=== PATIENT | female | born 1975 | race Two or more races ===

== ENCOUNTER 2020-10-04 15:58 | Inpatient (IN) | payer OTHER ==
[~2020-10-04] VITALS: Ht 160 cm; Wt 88.0 kg
--- NOTE | 2020-10-04 16:10 | NUR ---
pt bibra from c/o abdominal pain from a wound debridement 8 days ago. pt is slovenian speaking, states unable to tolerate po antibiotics,. pt is tachycardic manager cosmetic but afebrile. awating md xavier.
[2020-10-04] MEDS ORDERED: LACT1CAP61 PO (16:25)
[2020-10-04] MEDS ORDERED: AMIN30LI2 PO (16:25)
[2020-10-04] MEDS ORDERED: ASCO-352 PO (16:25)
[2020-10-04] MEDS ORDERED: NA P133E RC (16:25)
[2020-10-04] MEDS ORDERED: METF-440 PO (16:25)
[2020-10-04] MEDS ORDERED: MAGN400O6 PO (16:25)
[2020-10-04] MEDS ORDERED: HYDR-3980 PO (16:25)
[2020-10-04] MEDS ORDERED: BISA10SU11 RC (16:25)
[2020-10-04] MEDS ORDERED: ZINC1CAP3 PO (16:25)
[2020-10-04] MEDS ORDERED: MULT-24 PO (16:25)
[2020-10-04] MEDS ORDERED: HYDR4TAB57 PO (16:25)
[2020-10-04] MEDS ORDERED: DOCU-141 PO (16:25)
[2020-10-04] MEDS ORDERED: MEDI HONEY TD (16:25)
[2020-10-04] MEDS ORDERED: ALLA266C2 TP (16:25)
[2020-10-04] MEDS ORDERED: INSU100V3 SQ (16:25)
[2020-10-04] MEDS ORDERED: SENN-261 PO (16:25)
[2020-10-04] MEDS ORDERED: MORP15TA PO (16:25)
[2020-10-04] MEDS ORDERED: ONDA4TAB5 PO (16:25)
[2020-10-04] MEDS ORDERED: NEOM1OIN19 TP (16:25)
[2020-10-04] MEDS ORDERED: LIDOCAINE HCL IM (16:30)
--- NOTE | 2020-10-04 16:38 | NUR ---
iv line started. blood drawn. lab called for supervisor opening and picking.
--- NOTE | 2020-10-04 16:40 | NUR ---
dr murphy at bedside for eval.
[2020-10-04] MEDS ORDERED: ONDANSETRON HCL/PF 4 MG/2 ML VIAL ONE (16:45)
[2020-10-04] MEDS ORDERED: MORPHINE SULFATE INJ 4 MG/ML DISP.SYRIN ONE (16:46)
[2020-10-04 16:51] LABS: HEMOGLOBIN 10.2 g/dL (11.5-14.8); MEAN CORPUSCULAR VOLUME 91 fL (82-100); NEUTROPHILS % (AUTO) 75.1 % (43.0-81.0)
[2020-10-04 16:53] LABS: BASOPHILS # (AUTO) 0.1 /CMM (0.0-0.2); BASOPHILS % (AUTO) 0.4 % (0.0-2.0); HEMATOCRIT 32 % (33-45); LYMPHOCYTES # (AUTO) 2.4 /CMM (0.8-4.8); LYMPHOCYTES % (AUTO) 17.3 % (20.0-44.0); MEAN CORPUSCULAR HGB CONC 32 g/dl (31.0-36.0); MONOCYTES % (AUTO) 7.2 % (2.0-12.0); NEUTROPHILS # (AUTO) 10.2 /CMM (1.8-8.9); PLATELET COUNT (AUTO) 415 /CMM (150-450); RED BLOOD CELL COUNT(AUTO) 3.53 MIL/uL (4.0-5.2); WHITE BLOOD COUNT (AUTO) 13.6 K/uL (4.3-11.0)
[2020-10-04] MEDS ORDERED: MORPHINE SULFATE INJ 2 MG/ML DISP.SYRIN IV ONE (17:00)
[2020-10-04] MEDS ORDERED: ONDANSETRON HCL/PF 4 MG/2 ML VIAL IVP ONE (17:00)
[2020-10-04] MEDS ORDERED: IV NS 0.9% 1,000 ML BAG IV ONE (17:00)
[2020-10-04 17:18] LABS: BILIRUBIN,DIRECT 0.2 mg/dL (0.0-0.2); BILIRUBIN,TOTAL 0.4 mg/dL (0.2-1.0); TOTAL PROTEIN, SERUM 5.3 g/dL (6.4-8.2)
[2020-10-04 17:19] LABS: ALBUMIN 1.1 g/dL (3.4-5.0)
--- NOTE | 2020-10-04 17:32 | NUR ---
pt to radiology for abdominal ct scan via [facility].
--- NOTE | 2020-10-04 18:46 | NUR ---
u/s tech at bedside for gallbladder ultrasound.
[2020-10-04] MEDS ORDERED: CEFTRIAXONE 1GM BAG (ER ONLY) 50 ML IV ONE (19:27)
[2020-10-04] MEDS ORDERED: CEFTRIAXONE 1GM BAG (ER ONLY) 1 GM/50 ML PIGGYBACK IV ONE (19:30)
--- NOTE | 2020-10-04 21:42 | NUR ---
PT TO NUCLEAR MED VIA BLAIR
--- NOTE | 2020-10-04 22:15 | NUR ---
REPOT GIVEN TO JULIO TRAORE FOR MERCED
[2020-10-04] MEDS ORDERED: ZOLPIDEM TARTRATE 5 MG TABLET PO PRN (22:30)
[2020-10-04] MEDS ORDERED: ACETAMINOPHEN 325 MG TABLET PO PRN (22:30)
[2020-10-04] MEDS ORDERED: Z GUARD REMEDY 2 OZ OINT TP PRN (22:30)
--- NOTE | 2020-10-04 23:28 | NUR ---
PT TRANSFERRED TO ROOM IN STABLE CONDITION VIA ACLS PROTOCOL
--- NOTE | 2020-10-04 23:30 | NUR ---
ms rn notes Admitted a 45y/o female a/ox4 Able to make needs known ,emirati speaking , on r/a sating 97% ,no sob no distress noted patient is nkda , full code .under the service of lori mathew with admitting dx of r/o cholecystitis ,medsurg status , npo status . admission routine care rendered , assessment from head to toe done , patient c/o of abdominal pain 7/10 due pain meds given as ordered .On iv heplock on left hand with G#20 intact and patent with ivf of ns at 75cc/hr infusing well , all needs attended too call light within reach kept patient clean dry and comfortable , v/s stable afebrile , seen and examined by amilcar mathew at bedside with orders . all orders carried out. will continue to monitor pts , blood sugar at 12mn is 144mg/dl 2 units of regular insulin given as ordered. will check blood sugar again at 6am ,
[2020-10-04] MEDS: MORPHINE SULFATE INJ 2 MG/ML DISP.SYRIN IV PRN (23:34)
[2020-10-05] VITALS: BP 107/69
[2020-10-05] MEDS ORDERED: DEXTROSE 50%-WATER 50 ML DISP.SYRIN IV PRN
[2020-10-05] MEDS: IV NS 0.9% 1,000 ML IV PRN ×2 (00:18→17:41)
[2020-10-05] MEDS ORDERED: PIPERACILLIN /TAZOBACTAM 3.375 G VIAL IV ONE ×2 (00:26→03:47)
[2020-10-05] MEDS: ZOSYN IVPB 3.375 G in IV D5W 50ml IV SCH ×2 (00:28→06:03)
[2020-10-05] MEDS: INSULIN REGULAR, HUMAN 100 UNIT/ML 3 ML VIAL SQ PRN ×5 (00:44→23:26)
[2020-10-05] MEDS: BLOOD SUGAR DIAGNOSTIC 1 EACH STRIP IN SCH ×6 (00:45→23:25)
[2020-10-05 04:00] VITALS: BP 98/51
[2020-10-05] MEDS: ONDANSETRON HCL/PF 4 MG/2 ML VIAL IVP PRN ×2 (04:29→12:23)
[2020-10-05] MEDS: MORPHINE SULFATE INJ 2 MG/ML DISP.SYRIN IV PRN ×2 (04:30→12:23)
[2020-10-05 06:33] LABS: BASOPHILS % (AUTO) 0.3 % (0.0-2.0); HEMATOCRIT 28 % (33-45); HEMOGLOBIN 8.7 g/dL (11.5-14.8); LYMPHOCYTES # (AUTO) 1.9 /CMM (0.8-4.8); LYMPHOCYTES % (AUTO) 21.1 % (20.0-44.0); MEAN CORPUSCULAR HGB CONC 32 g/dl (31.0-36.0); MEAN CORPUSCULAR VOLUME 92 fL (82-100); MONOCYTES # (AUTO) 0.8 /CMM (0.1-1.30); MONOCYTES % (AUTO) 9.4 % (2.0-12.0); NEUTROPHILS # (AUTO) 6.1 /CMM (1.8-8.9); NEUTROPHILS % (AUTO) 68.2 % (43.0-81.0); PLATELET COUNT (AUTO) 346 /CMM (150-450); RED BLOOD CELL COUNT(AUTO) 2.99 MIL/uL (4.0-5.2); WHITE BLOOD COUNT (AUTO) 8.9 K/uL (4.3-11.0)
[2020-10-05 06:34] LABS: BILIRUBIN,URINE SMALL (NEGATIVE); COLOR,URINE YELLOW (YELLOW); LEUKOCYTE ESTERASE ,URINE MODERATE (NEGATIVE); NITRITE, URINE POSITIVE (NEGATIVE); PH,URINE 5.5 (5.0-8.0); PROTEIN,URINE 30 mg/dl (NEGATIVE); UGLUCOSE NEGATIVE (NEGATIVE)
[2020-10-05 06:59] LABS: BACTERIA,URINE Moderate /HPF (None Seen); SQUAMOUS EPITHELIAL CELL,UR Few /HPF (None Seen); WBC,URINE TOO NUMEROUS TO COUN /HPF (0-3)
--- NOTE | 2020-10-05 07:17 | NUR ---
RN CLOSING NOTE: PATIENT REMAINS IN ROOM IN NO SIGNS OF RESPIRATORY DISTRESS, PATIENT STILL ON ROOM AIR;TOLERATING WELL SATURATING @ >95% SP02. SAFETY MEASURES IMPLEMENTED, BED IN LOWEST POSITION, LOCKED, SIDE RAILS UP, CALL LIGHT WITHIN REACH. ALL NEEDS AND ORDERS ADDRESSED DURING THE SHIFT. IV ACCESS MAINTAINED INTACT, SECURED AND FLUSHING WELL. ALL DUE MEDS GIVEN ORDERED & SCHEDULED ; PATIENT TOLERATED WELL. PATIENT KEPT CLEAN AND COMFORTABLE WITHIN THE SHIFT. PATIENT ENDORSED TO INCOMING SHIFT RN WITH STABLE VITAL SIGN AND FOR CONTINUITY OF CARE.
--- NOTE | 2020-10-05 07:30 | NUR ---
RN OPENING NOTE PATIENT PRESENT IN BED, A/O X4, STATUS POST TRACH REMOVAL, NPO STATUS NOTE, DRESSING INTACT, ON ROOM AIR, SPO2 98%, NO SOB NOTED, IV LINE INTACT AND PATENT, RUNNING NS AT 75 CC//HR, TOLERATING WELL, JACKSON CATH IN PLACE DRAINING DARK YELLOW URINE BY GRAVITY,ABDOMINAL DRESSING INTACT AND CLEAN, SAFETY MEASURES IN PLACE, CALL LIGHT IN REACH, HOB ELEVATED, WILL CONT TO MONITOR
[2020-10-05 08:25] LABS: CARBON DIOXIDE 21 mmol/L (21-32); CHLORIDE 110 mmol/L (98-107); GLUCOSE 105 mg/dL (74-106); SODIUM SERUM 143 mmol/L (136-145)
[2020-10-05 08:26] LABS: CALCIUM, SERUM 7.2 mg/dL (8.5-10.1); MAGNESIUM 1.9 mg/dL (1.8-2.4); PHOSPHORUS 4.8 mg/dL (2.5-4.9); UREA NITROGEN, BLOOD 32 mg/dL (7-18)
[2020-10-05 08:38] LABS: CHOLESTEROL 116 mg/dL (<200); LDL 72 mg/dL (0-99); TRIGLYCERIDES 230 mg/dL (30-150)
[2020-10-05 08:45] LABS: HDL CHOLESTEROL < 10 mg/dL (40-60)
[2020-10-05] MEDS: METOCLOPRAMIDE HCL 10 MG/2 ML VIAL IV SCH ×3 (11:15→23:09)
[2020-10-05 12:00] VITALS: BP 98/51
[2020-10-05] MEDS ORDERED: PIPERACILLIN /TAZOBACTAM 3.375 G in IV D5W 100 ML IV SCH (12:00)
--- NOTE | 2020-10-05 12:30 | NUR ---
BLOOD SUGAR 86, NO INSULIN COVERAGE
[2020-10-05] MEDS ORDERED: VANCOMYCIN 1.5 GM in IV D5W 500 ML IV ONE (15:00)
[2020-10-05 17:17] LABS: BILIRUBIN,URINE NEGATIVE (NEGATIVE); COLOR,URINE YELLOW (YELLOW); LEUKOCYTE ESTERASE ,URINE LARGE (NEGATIVE); NITRITE, URINE NEGATIVE (NEGATIVE); PH,URINE 6.5 (5.0-8.0); PROTEIN,URINE 30 mg/dl (NEGATIVE); UGLUCOSE NEGATIVE (NEGATIVE); UROBILINOGEN,URINE 0.2 EU/dL (0.2)
[2020-10-05 17:27] LABS: BACTERIA,URINE Many /HPF (None Seen); SQUAMOUS EPITHELIAL CELL,UR Few /HPF (None Seen)
[2020-10-05 17:36] LABS: CREATININE, URINE 71.1 MG/DL (30.0-125.0); URINE TOTAL PROTEIN 147.2 mg/dL (0-11.9)
[2020-10-05 17:50] LABS: EOSINOPHIL,URINE None Seen
--- NOTE | 2020-10-05 18:00 | NUR ---
BLOOD SUGAR 136, PATIENT NPO, NON-ADMINISTER INSULIN
--- NOTE | 2020-10-05 18:48 | NUR ---
RN CLOSING NOTES REMAINS IN ROOM, RESTING COMFORTABLY, HAD MULTIPLE EPISODES OF VOMITING AND NAUSEA, PROVIDED WITH MEDICATIONS, WOUND CARE DONE, CLEANED AND REPOSITIONED, WILL ENDORSE TO PM SHIFT FOR MERCED
[2020-10-05 20:00] VITALS: BP 110/70
[2020-10-05] MEDS ORDERED: MEROPENEM 500 MG in IV NS 0.9% 50 ML IV SCH (21:30)
[2020-10-05] MEDS ORDERED: MEROPENEM 500 MG in IV NS 0.9% 50 ML IV ONE (22:00)
[2020-10-06] MEDS: MORPHINE SULFATE INJ 2 MG/ML DISP.SYRIN IV PRN ×4 (00:01→20:14)
[2020-10-06] MEDS ORDERED: MEROPENEM 500 MG VIAL IV ONE ×2 (00:27→00:36)
[2020-10-06 04:00] VITALS: BP 120/69
--- NOTE | 2020-10-06 04:05 | NUR ---
RN notes Resting comfortably in bed with no distress noted. Breathing even and unlabored. Alert and oriented. Verbally able to communicate needs. Complaint of pain in the abdominal area, morphine administered with relief. Requested for sleeping pill, ambien given with help. No significant change of condition. Kept clean and dry. Will endorse to next shift for continuity of care.
[2020-10-06] MEDS: METOCLOPRAMIDE HCL 10 MG/2 ML VIAL IV SCH ×4 (06:25→22:36)
[2020-10-06] MEDS: IV NS 0.9% 1,000 ML IV PRN (06:29)
[2020-10-06 06:44] LABS: BASOPHILS % (AUTO) 0.4 % (0.0-2.0); EOSINOPHILS % (AUTO) 1.5 % (0.0-6.0); HEMATOCRIT 29 % (33-45); HEMOGLOBIN 9.3 g/dL (11.5-14.8); LYMPHOCYTES % (AUTO) 23.2 % (20.0-44.0); MEAN CORPUSCULAR HGB CONC 32 g/dl (31.0-36.0); MEAN CORPUSCULAR VOLUME 93 fL (82-100); MONOCYTES # (AUTO) 0.6 /CMM (0.1-1.30); MONOCYTES % (AUTO) 7.2 % (2.0-12.0); NEUTROPHILS # (AUTO) 5.9 /CMM (1.8-8.9); NEUTROPHILS % (AUTO) 67.7 % (43.0-81.0); PLATELET COUNT (AUTO) 393 /CMM (150-450); RED BLOOD CELL COUNT(AUTO) 3.11 MIL/uL (4.0-5.2); WHITE BLOOD COUNT (AUTO) 8.8 K/uL (4.3-11.0)
[2020-10-06 08:18] LABS: BILIRUBIN,TOTAL 0.4 mg/dL (0.2-1.0); CALCIUM, SERUM 7.7 mg/dL (8.5-10.1); CREATININE 1.4 mg/dL (0.6-1.3); PHOSPHORUS 2.9 mg/dL (2.5-4.9); POTASSIUM 3.6 mmol/L (3.5-5.1); TOTAL PROTEIN, SERUM 5.3 g/dL (6.4-8.2)
[2020-10-06] MEDS: MEROPENEM 1 G in IV NS 0.9% 100 ML IV SCH ×2 (09:13→20:14)
[2020-10-06] MEDS: ONDANSETRON HCL/PF 4 MG/2 ML VIAL IVP PRN (09:41)
--- NOTE | 2020-10-06 09:41 | NUR ---
rn notes administered Zofran 4 mg/ml iv push for nausea and vomiting.
--- NOTE | 2020-10-06 09:45 | NUR ---
rn notes UA specimen collected from Mancuso catheter port, called lab for sheepskin pickler.
--- NOTE | 2020-10-06 10:20 | NUR ---
rn notes patient burr picker at this time for MRCP wo consent procedure.
--- NOTE | 2020-10-06 10:27 | NUR ---
rn notes administered morphine sulfate 2 mg/ml iv push for mid abdominal pain 12/31 per patient request 12/31 bp 117/74, p-95.
[2020-10-06] MEDS: BLOOD SUGAR DIAGNOSTIC 1 EACH STRIP IN SCH ×3 (11:47→23:52)
[2020-10-06 12:00] VITALS: BP 117/74
[2020-10-06] MEDS: VANCOMYCIN 1 GM in IV D5W 250 ML IV SCH (13:11)
[2020-10-06] MEDS ORDERED: VANCOMYCIN 1 GM in IV D5W 250 ML IV SCH (15:00)
--- NOTE | 2020-10-06 17:00 | NUR ---
RN NOTES BS- 65 MG/DL, NO COVERAGE GIVEN, ADMINISTERED SCHEDULED MEDICATION, NEEDS ATTENDED AND ANTICIPATED, ASSIST TURN AND REPOSTION Q 2 HR.
--- NOTE | 2020-10-06 18:30 | NUR ---
rn notes No evidence of choledocholithiasis or biliary ductal dilatation. 2. Mildly distended gallbladder with moderate amount of layering sludge. 3. Small atrophic right kidney without hydronephrosis. 4. Small cystic lesion abutting the uncinate process of the pancreas and third portion of duodenum. Consider short-term follow-up MRI in 6 months to document stability. patient stable, refused pain at this time, infusing d5ns ar 75 ml/hr on left wrist intact, Mancuso draining via gravity. call light within to reach. will monitoring. endorsed oncoming nurse paula.
--- NOTE | 2020-10-06 19:30 | NUR ---
RN NOTE PATIENT ALERT AND ORIENTED X3, ABLE TO MAKE NEEDS KNOWN. ON ROOM AIR, O2 SAT 99%. NO S/S OF RESPIRATORY DISTRESS. COMPLAINED OF SEVERE ABDOMINAL PAIN, WILL ADMINISTER DUE PRN MEDS. JACKSON CATH PATENT AND INTACT DRAINING YELLOW URINE TO GRAVITY. WITH LEFT WRIST #20 WITH D5NS @ 75ML/HR RUNNING. NO S/S OF INFILTRATION. CALL LIGHT WITHIN REACH. BED LOCKED AND IN LOWEST POSITION. SAFETY MEASURES IMPLEMENTED. ALL NEEDS ANTICIPATED.
[2020-10-06 20:00] VITALS: BP 142/83
[2020-10-06] MEDS: INSULIN REGULAR, HUMAN 100 UNIT/ML 3 ML VIAL SQ PRN (23:52)
--- NOTE | 2020-10-07 | NUR ---
BLOOD SUGAR 69, NO INSULIN COVERAGE GIVEN.
[2020-10-07 04:00] VITALS: BP 126/80
[2020-10-07] MEDS: MORPHINE SULFATE INJ 2 MG/ML DISP.SYRIN IV PRN ×2 (05:27→09:50)
[2020-10-07] MEDS: METOCLOPRAMIDE HCL 10 MG/2 ML VIAL IV SCH ×4 (05:28→23:05)
[2020-10-07] MEDS: VANCOMYCIN 1 GM in IV D5W 250 ML IV SCH ×3 (05:28→18:48)
[2020-10-07] MEDS: BLOOD SUGAR DIAGNOSTIC 1 EACH STRIP IN SCH ×4 (05:48→23:15)
[2020-10-07] MEDS: INSULIN REGULAR, HUMAN 100 UNIT/ML 3 ML VIAL SQ PRN ×4 (05:48→23:16)
--- NOTE | 2020-10-07 06:00 | NUR ---
BLOOD SUGAR 83, NO INSULIN COVERAGE GIVEN
--- NOTE | 2020-10-07 06:40 | NUR ---
RN NOTES PATIENT RESTING IN BED, ALERT AND ORIENTED X3. ON ROOM AIR, O2 SAT 98%. NO SOB NOTED. JACKSON CATH PATENT AND INTACT DRAINING YELLOW URINE TO GRAVITY, OUTPUT 600ML. WITH LEFT WRIST #20 WITH D5NS @ 75ML/HR RUNNING. NO S/S OF INFILTRATION. ALL DUE MEDS GIVEN ORDERED. TOLERATED BED BATH WELL. TURNED AND REPOSITIONED. CALL LIGHT WITHIN REACH. SAFETY MEASURES IMPLEMENTED. WILL ENDORSE TO AM SHIFT.
[2020-10-07 07:01] LABS: BASOPHILS % (AUTO) 0.1 % (0.0-2.0); EOSINOPHILS % (AUTO) 0.8 % (0.0-6.0); HEMATOCRIT 28 % (33-45); HEMOGLOBIN 8.9 g/dL (11.5-14.8); LYMPHOCYTES # (AUTO) 1.8 /CMM (0.8-4.8); LYMPHOCYTES % (AUTO) 26.4 % (20.0-44.0); MEAN CORPUSCULAR HGB CONC 32 g/dl (31.0-36.0); MEAN CORPUSCULAR VOLUME 91 fL (82-100); MONOCYTES # (AUTO) 0.7 /CMM (0.1-1.30); MONOCYTES % (AUTO) 10.4 % (2.0-12.0); NEUTROPHILS # (AUTO) 4.1 /CMM (1.8-8.9); NEUTROPHILS % (AUTO) 62.3 % (43.0-81.0); PLATELET COUNT (AUTO) 403 /CMM (150-450); RED BLOOD CELL COUNT(AUTO) 3.07 MIL/uL (4.0-5.2); WHITE BLOOD COUNT (AUTO) 6.7 K/uL (4.3-11.0)
[2020-10-07 07:39] LABS: CALCIUM, SERUM 7.7 mg/dL (8.5-10.1); CREATININE 0.8 mg/dL (0.6-1.3)
--- NOTE | 2020-10-07 07:40 | NUR ---
RN OPENING NOTES Patient is alert and oriented. Patient is breathing even and unlabored. Left wrist iv site infusing well with fluids. Patient is NPO and harry cath hanging to gravity with clear yellow urine. Patient will be monitored. Bed is in lowest and locked position. Call light with in reach.
[2020-10-07 07:55] LABS: POTASSIUM 2.6 mmol/L (3.5-5.1)
[2020-10-07 08:00] VITALS: BP 110/76
[2020-10-07] MEDS ORDERED: VANCOMYCIN 1 GM in IV D5W 250 ML IV SCH (08:00)
[2020-10-07] MEDS ORDERED: HYDROGEL DRESSING 90 GM TUBE TP PRN (09:00)
--- NOTE | 2020-10-07 09:06 | NUR ---
WOUND CARE CONSULT: PT PRESENTS WITH MULTIPLE WOUNDS AND SKIN ISSUES PRESENT ON ADMISSION INCLUDING MIDBACK PURULENT WOUND, STAGE 3 ULCERS TO LOWER BACK AND RT BUTTOCK AND HUGE ABDOMINAL SURGICAL WOUND. RECOMMENDATIONS MADE FOR SKIN PROTECTION AND WOUND CARE. DISCUSSED WITH NURSING STAFF. WILL SPEAK TO DR COLE WHEN HE IS AVAILABLE. NO ANSWER YET. FIRST STEP LOW AIRLOSS MATTRESS IS ON ORDER. MD IN AGREEMENT WITH PLAN OF CARE. Addendum: 10/07/20 at 1000 by LUIS FREY WNDNU SPOKE WITH JENNIFER GARCIA REGARDING WOUND/SURGICAL CONSULT. PER RADHA, DR COLE WOULD APPRECIATE DR BENJI GLORIA TO SEE PT FOR WOUND/SURGICAL CONSULT. DR BENJI GLORIA NOTIFIED.
[2020-10-07] MEDS: HYDROGEL DRESSING 90 GM TUBE TP SCH (09:38)
[2020-10-07] MEDS: DAKINS QUARTER STRENGTH (0.125%) 480 ML BOTTLE TOP SCH (09:38)
[2020-10-07] MEDS: MEROPENEM 1 G in IV NS 0.9% 100 ML IV SCH ×2 (09:49→20:28)
[2020-10-07] MEDS ORDERED: POTASSIUM CHLORIDE 20 MEQ TAB.PRT.SR PO ONE (13:30)
[2020-10-07] MEDS: POTASSIUM CL. PREMIX PERIPHER. 50 ML IV SCH ×4 (13:56→19:16)
[2020-10-07 16:00] VITALS: BP 104/52
--- NOTE | 2020-10-07 18:44 | NUR ---
Patient discharged [facility] with ambulance. Patient is in stable condition. Report given to Shane KIM over the phone along with medics. Patient did not c/o pain or discomfort. No c/of sob. Mancuso cath intact and hanging to gravity with christian urine. Patient left the facility at apprx 1840pm. All reports , xray, films and discharge instructions given . Addendum: 10/07/20 at 1847 by KOJO BROWNLEE RN wrong chart
--- NOTE | 2020-10-07 19:25 | NUR ---
RN CLOSING NOTES Patient is alert and oriented. Patient is breathing even and unlabored. Wound care provided during shift.Right upper arm midline patent and infusing well. Patient's K+ replaced. Vanco held due to vanco trough level of 28. Endorsed to next shift for urine collection. Bed is in lowest position. Patient ate 50 % lunch and 50 % dinner. NPO orders were changed to Advanced diet by MD LEBLANC. Patient poornima well.
--- NOTE | 2020-10-07 19:30 | NUR ---
RN NOTE PATIENT IN BED AWAKE, ALERT, AND ORIENTED X3. DENIES ANY PAIN AT THIS TIME. ON ROOM AIR, O2 SAT WNL. NO SOB NOTED. KEVEN MIDLINE PATENT AND INTACT RUNNING D5NS @ 75ML/HR. NO S/S OF INFILTRATION. BED LOCKED AND IN LOWEST POSITION WITH SIDE RAILS UP X2. CALL LIGHT WITHIN REACH. ALL NEEDS ANTICIPATED.
--- NOTE | 2020-10-07 20:16 | NUR ---
SPOKE WITH RADHA BAUER PLASTICS PLATER WITH NEW ORDERS FOR HIDA SCAN W/CCK EJECTION FRACTION IN AM AND CBC/ CMP ROUTINE IN AM NOTED AND CARRIED OUT.
[2020-10-07] MEDS: IV D5/ 0.9% NACL 1,000 ML IV PRN (20:37)
[2020-10-08] MEDS: MORPHINE SULFATE INJ 2 MG/ML DISP.SYRIN IV PRN (00:10)
[2020-10-08 04:00] VITALS: BP 120/75
[2020-10-08] MEDS: METOCLOPRAMIDE HCL 10 MG/2 ML VIAL IV SCH ×4 (05:04→23:19)
[2020-10-08] MEDS: BLOOD SUGAR DIAGNOSTIC 1 EACH STRIP IN SCH ×4 (05:13→23:31)
[2020-10-08] MEDS: INSULIN REGULAR, HUMAN 100 UNIT/ML 3 ML VIAL SQ PRN ×4 (05:13→23:32)
[2020-10-08 06:32] LABS: BASOPHILS % (AUTO) 0.3 % (0.0-2.0); EOSINOPHILS % (AUTO) 1.2 % (0.0-6.0); HEMATOCRIT 27 % (33-45); HEMOGLOBIN 8.5 g/dL (11.5-14.8); LYMPHOCYTES # (AUTO) 2.5 /CMM (0.8-4.8); LYMPHOCYTES % (AUTO) 28.5 % (20.0-44.0); MEAN CORPUSCULAR HGB CONC 31 g/dl (31.0-36.0); MEAN CORPUSCULAR VOLUME 93 fL (82-100); MONOCYTES # (AUTO) 0.8 /CMM (0.1-1.30); MONOCYTES % (AUTO) 9.2 % (2.0-12.0); NEUTROPHILS # (AUTO) 5.4 /CMM (1.8-8.9); NEUTROPHILS % (AUTO) 60.8 % (43.0-81.0); PLATELET COUNT (AUTO) 318 /CMM (150-450); RED BLOOD CELL COUNT(AUTO) 2.92 MIL/uL (4.0-5.2); WHITE BLOOD COUNT (AUTO) 8.9 K/uL (4.3-11.0)
--- NOTE | 2020-10-08 06:49 | NUR ---
RN NOTE PATIENT ALERT, AND ORIENTED X3. DENIES ANY PAIN AT THIS TIME. ON ROOM AIR, O2 SAT 99%. NO SOB NOTED. KEVEN MIDLINE PATENT AND INTACT RUNNING D5NS @ 75ML/HR. NO S/S OF INFILTRATION. WOUND CARE DONE. TURNED AND REPOSITIONED. JACKSON CATH DRAINING YELLOW URINE TO GRAVITY WITH OUTPUT OF 255. BED LOCKED AND IN LOWEST POSITION WITH SIDE RAILS UP X2. CALL LIGHT WITHIN REACH. WILL ENDORSE TO AM SHIFT.
[2020-10-08 06:54] LABS: BILIRUBIN,TOTAL 0.4 mg/dL (0.2-1.0); CALCIUM, SERUM 7.8 mg/dL (8.5-10.1); CREATININE 0.8 mg/dL (0.6-1.3); MAGNESIUM 1.7 mg/dL (1.8-2.4); POTASSIUM 3.9 mmol/L (3.5-5.1); TOTAL PROTEIN, SERUM 4.7 g/dL (6.4-8.2)
[2020-10-08 07:09] LABS: ALBUMIN 0.9 g/dL (3.4-5.0)
[2020-10-08 08:00] VITALS: BP 117/77
[2020-10-08] MEDS ORDERED: Magnesium 1GM/D5W 100ML PREMIX 100 ML IV SCH (08:00)
[2020-10-08] MEDS ORDERED: VANCOMYCIN 1 GM in IV D5W 250 ML IV SCH ×2 (08:00→12:00)
[2020-10-08 10:03] LABS: CHLORIDE,URINE RANDOM 80 mmol/L (55-125); POTASSIUM RNDM,URINE 32 mmol/L (25-125); URINE SODIUM, RANDOM 48 mmol/l (40-220)
[2020-10-08] MEDS: ONDANSETRON HCL/PF 4 MG/2 ML VIAL IVP PRN (10:45)
[2020-10-08 10:55] LABS: EOSINOPHILS % (MANUAL) 1 % (0-4); LYMPHOCYTES % (MANUAL) 28 % (16-48); MONOCYTES % (MANUAL) 7 % (0-11.0); NEUTROPHILS % (MANUAL) 64 (42-76)
[2020-10-08] MEDS: DAKINS QUARTER STRENGTH (0.125%) 480 ML BOTTLE TOP SCH (10:58)
[2020-10-08] MEDS: HYDROGEL DRESSING 90 GM TUBE TP SCH (10:59)
--- NOTE | 2020-10-08 11:00 | NUR ---
Patient transferred to radiology nuclear for HIDA scan. In stable condition.
[2020-10-08] MEDS: MEROPENEM 1 G in IV NS 0.9% 100 ML IV SCH ×2 (13:07→21:48)
[2020-10-08 16:00] VITALS: BP 115/58
[2020-10-08] MEDS: VANCOMYCIN 1 GM in IV D5W 250 ML IV SCH (17:56)
--- NOTE | 2020-10-08 19:25 | NUR ---
RN CLOSING NOTES Patient is alert and oriented. Patient is breathing even and unlabored. Right upper arm iv site infusing well with fluids. Patient's harry cath hanging to gravity with clear yellow urine and noted with output of 900cc . Patient will be monitored. Bed is in lowest and locked position. Call light with in reach. Endorsed to next shift for MERCED.
--- NOTE | 2020-10-08 19:35 | NUR ---
RN NOTE RECEIVED PT IN BED. ON ROOM AIR SATING AT 98 %. DENIES ANY PAIN OR SOB. NO DISTRESS NOTED. WOUND DRESSING ON ABDOMEN, CLEAN DRY AND INTACT. KEVEN MIDLINE PATENT AND INTACT, D5NS RUNNING. WILL CONTINUE TO MONITOR. ALL SAFETY MEASURES IMPLEMENTED PER PROTOCOL. CALL LIGHT WITHIN REACH BED LOCKED IN LOWEST POSITION. SIDE RAILS UP X 2.
[2020-10-08 20:00] VITALS: BP 112/70
--- NOTE | 2020-10-08 21:53 | NUR ---
RN NOTE SPOKE TO JULIO DURHAM FROM [facility] REGARDING HULL DRAFTER REQUEST FOR PT TRANSFER. CHARGE NURSE MADE AWARE.
[2020-10-08] MEDS: IV D5/ 0.9% NACL 1,000 ML IV PRN (21:58)
--- NOTE | 2020-10-08 22:45 | NUR ---
MS RN NOTE NURSING COMPUTER DRAFTER INFORMED ME THAT MD AT [facility] DECLINED TO ACCEPT THE PT DUE TO LONG DISTANCE AND LIFE MANAGEMENT TEACHER HAS TO RECHECK THE SITUATION IN THE MORNING. NURSE SUE MADE AWARE OF THAT.
[2020-10-09 04:00] VITALS: BP 142/82
[2020-10-09] MEDS: METOCLOPRAMIDE HCL 10 MG/2 ML VIAL IV SCH ×3 (04:57→17:26)
[2020-10-09] MEDS: MORPHINE SULFATE INJ 2 MG/ML DISP.SYRIN IV PRN (05:06)
[2020-10-09] MEDS: BLOOD SUGAR DIAGNOSTIC 1 EACH STRIP IN SCH ×3 (06:06→17:26)
[2020-10-09] MEDS: INSULIN REGULAR, HUMAN 100 UNIT/ML 3 ML VIAL SQ PRN ×2 (06:07→12:34)
--- NOTE | 2020-10-09 06:28 | NUR ---
RN CLOSING NOTES PT REMAIN IN BED. COMPLAINED OF PAIN IN THE ABDOMEN AREA AROUND 5AM. RELIEVED BY MORPHINE. ALSO NOTED WITH NAUSEA, REGLAN WAS GIVEN ORDERED. PT ABLE TO MAKE NEEDS KNOWS. WOUND TX DONE ORDERED, TOLERATED WELL. CONTINUE ON IVF OF D5NS. NO SIGNS OF INFILTRATION NOTED. ALL NEEDS ATTENDED. REMAIN AFEBRILE. JACKSON CATH IN PLACE, DRAINING WELL. WILL ENDORSE TO NEXT SHIFT NURSE FOR MERCED.
[2020-10-09 06:30] LABS: BASOPHILS % (AUTO) 0.3 % (0.0-2.0); EOSINOPHILS % (AUTO) 1.7 % (0.0-6.0); HEMATOCRIT 30 % (33-45); HEMOGLOBIN 9.3 g/dL (11.5-14.8); LYMPHOCYTES # (AUTO) 3.5 /CMM (0.8-4.8); LYMPHOCYTES % (AUTO) 28.9 % (20.0-44.0); MEAN CORPUSCULAR HGB CONC 31 g/dl (31.0-36.0); MEAN CORPUSCULAR VOLUME 93 fL (82-100); MONOCYTES # (AUTO) 0.9 /CMM (0.1-1.30); MONOCYTES % (AUTO) 7.1 % (2.0-12.0); NEUTROPHILS # (AUTO) 7.5 /CMM (1.8-8.9); PLATELET COUNT (AUTO) 377 /CMM (150-450); RED BLOOD CELL COUNT(AUTO) 3.21 MIL/uL (4.0-5.2); WHITE BLOOD COUNT (AUTO) 12.2 K/uL (4.3-11.0)
[2020-10-09 07:04] LABS: BILIRUBIN,DIRECT 0.1 mg/dL (0.0-0.2); BILIRUBIN,TOTAL 0.4 mg/dL (0.2-1.0)
[2020-10-09 07:09] LABS: CALCIUM, SERUM 7.6 mg/dL (8.5-10.1); CREATININE 0.9 mg/dL (0.6-1.3); MAGNESIUM 1.6 mg/dL (1.8-2.4); PHOSPHORUS 1.6 mg/dL (2.5-4.9); POTASSIUM 3.2 mmol/L (3.5-5.1)
--- NOTE | 2020-10-09 07:30 | NUR ---
RN OPENING NOTE PATIENT PRESENT IN BED, A/O X4, ON ROOM AIR, TOLERATING WELL, SPO2 98%, NO SOB, NO DISTRESS NOTED, DRESSING INTACT, IV LINE INTACT AND PATENT, RUNNING NS AT 75 CC/HR, TOLERATING WELL, JACKSON CATH IN PLACE DRAINING YELLOW URINE BY GRAVITY,ABDOMINAL DRESSING INTACT AND CLEAN, SAFETY MEASURES IN PLACE, CALL LIGHT IN REACH, HOB ELEVATED, WILL CONT TO MONITOR
[2020-10-09 08:00] VITALS: BP 151/73
[2020-10-09] MEDS: MEROPENEM 1 G in IV NS 0.9% 100 ML IV SCH ×2 (08:39→20:04)
[2020-10-09] MEDS: Magnesium 1GM/D5W 100ML PREMIX 100 ML IV SCH ×2 (08:39→10:11)
[2020-10-09] MEDS: HYDROGEL DRESSING 90 GM TUBE TP SCH (08:41)
[2020-10-09] MEDS: DAKINS QUARTER STRENGTH (0.125%) 480 ML BOTTLE TOP SCH (08:41)
[2020-10-09] MEDS ORDERED: POTASSIUM CHLORIDE 20 MEQ TAB.PRT.SR PO ONE (09:00)
[2020-10-09 09:21] LABS: BILIRUBIN,DIRECT 0.1 mg/dL (0.0-0.2); BILIRUBIN,TOTAL 0.3 mg/dL (0.2-1.0); TOTAL PROTEIN, SERUM 4.8 g/dL (6.4-8.2)
[2020-10-09] MEDS ORDERED: K PHOS NEUTRAL 250 MG TABLET PO ONE (10:00)
[2020-10-09] MEDS ORDERED: IV D5/0.45 NACL 1,000 ML IV PRN (10:30)
[2020-10-09 10:37] LABS: ALBUMIN 0.9 g/dL (3.4-5.0)
[2020-10-09] MEDS ORDERED: Sodium Phosphate 15 MMOL in IV NS 0.9% 245 ML IV SCH (11:00)
[2020-10-09] MEDS ORDERED: IV D5W 1,000 ML IV PRN (11:30)
[2020-10-09 12:00] VITALS: BP 151/73
[2020-10-09] MEDS ORDERED: POTASSIUM PHOSPHATE MM 15 MMOL in IV NS 0.9% 250 ML IV ONE (13:00)
[2020-10-09 16:00] VITALS: BP 128/76
[2020-10-09] MEDS: VANCOMYCIN 1 GM in IV D5W 250 ML IV SCH (17:26)
--- NOTE | 2020-10-09 18:00 | NUR ---
COVID ANTIGEN TEST DONE, NEGATIVE RESULT
--- NOTE | 2020-10-09 18:34 | NUR ---
RN CLOSING NOTES REMAINS IN ROOM, TOLERATING TREATMENT WELL, NO ACUTE DISTRESS, CHANGES NOTED, CLEANED AND REPOSITIONED, MEDICATIONS PROVIDED, WILL ENDORSE TO PM SHIFT FOR MERCED
--- NOTE | 2020-10-09 19:10 | NUR ---
MS RN OPENING NOTES: RECEIVED PATIENT IN BED, AWAKE, A/O X3. NO S/S OF DISTRESS NOTED. CALL LIGHT WITHIN REACH. BED ALARM ON. BED IN LOWEST AND LOCKED POSITION. HOB ELEVATED AT 35 DEGREES. ON SPECIAL MATTRESS. WITH JACKSON CATHETER INTACT. ABDOMINAL DRESSING CLEAN, DRY AND INTACT.
[2020-10-09 20:00] VITALS: BP 122/85
--- NOTE | 2020-10-09 20:29 | NUR ---
DR COLE CALLED EARLIER RE: ASKING IF THERE'S CM AVAILABLE AT THIS TIME, INFORMED HIM THAT NONE, HIS CALL WAS TRANSFERRED BY THE SPRING COILER HAND TO THE NURSING LITIGATION SECRETARY.
[2020-10-09 22:33] VITALS: BP 122/85
[2020-10-10] MEDS: METOCLOPRAMIDE HCL 10 MG/2 ML VIAL IV SCH ×2 (00:09→04:30)
[2020-10-10] MEDS: INSULIN REGULAR, HUMAN 100 UNIT/ML 3 ML VIAL SQ PRN (00:19)
[2020-10-10] MEDS: BLOOD SUGAR DIAGNOSTIC 1 EACH STRIP IN SCH ×2 (00:19→06:00)
[2020-10-10] MEDS: MORPHINE SULFATE INJ 2 MG/ML DISP.SYRIN IV PRN ×2 (02:30→09:39)
--- NOTE | 2020-10-10 06:06 | NUR ---
blood sugar [id number], no insulin coverage needed.
[2020-10-10 06:33] LABS: BASOPHILS % (AUTO) 0.2 % (0.0-2.0); EOSINOPHILS % (AUTO) 1.5 % (0.0-6.0); HEMATOCRIT 32 % (33-45); HEMOGLOBIN 9.6 g/dL (11.5-14.8); LYMPHOCYTES # (AUTO) 4.3 /CMM (0.8-4.8); LYMPHOCYTES % (AUTO) 27.3 % (20.0-44.0); MEAN CORPUSCULAR HGB CONC 30 g/dl (31.0-36.0); MEAN CORPUSCULAR VOLUME 93 fL (82-100); MONOCYTES % (AUTO) 6.6 % (2.0-12.0); NEUTROPHILS # (AUTO) 10.1 /CMM (1.8-8.9); NEUTROPHILS % (AUTO) 64.4 % (43.0-81.0); PLATELET COUNT (AUTO) 397 /CMM (150-450); RED BLOOD CELL COUNT(AUTO) 3.42 MIL/uL (4.0-5.2); WHITE BLOOD COUNT (AUTO) 15.6 K/uL (4.3-11.0)
[2020-10-10 06:51] LABS: BILIRUBIN,DIRECT 0.3 mg/dL (0.0-0.2); BILIRUBIN,TOTAL 0.4 mg/dL (0.2-1.0); CALCIUM, SERUM 8.1 mg/dL (8.5-10.1); MAGNESIUM 1.7 mg/dL (1.8-2.4); PHOSPHORUS 2.4 mg/dL (2.5-4.9); TOTAL PROTEIN, SERUM 4.9 g/dL (6.4-8.2)
[2020-10-10 07:11] LABS: ALBUMIN 0.9 g/dL (3.4-5.0)
--- NOTE | 2020-10-10 07:30 | NUR ---
RN OPENING NOTE PT LYING IN BED RA SPO2 97%, NO SIGN OF RESP DISTRESS OR SOB. PT A/Ox3/3, SAMOAN SPEAKING. PT HAS KEVEN MIDLINE INFUSING D5W @ 100ML/HR, FLUSHED, PATENT AND INTACT, NO S/S OF INFECTION/INFILTRATION. PT HASABD, MIDBACK, LOW BACK, AND RT BUTTOCK WOUNDS, ALL DRSGS CLEAN, DRY AND INTACT. PT STATES PAIN 01/31, WILL ADMIN PAIN MEDS ORDERED. ALL PT SAFETY PRECAUTIONS IN PLACE, WILL CONT TO MONITOR Addendum: 10/10/20 at 1022 by MADHU MARTINEZ RN JACKSON CATH PATENT DRAINING ARAMIS URINE TO GRAVITY
--- NOTE | 2020-10-10 08:00 | NUR ---
RN NOTE SPA COORDINATOR RALPH NOTIFIED OF ALBUMIN 0.9
[2020-10-10] MEDS: DAKINS QUARTER STRENGTH (0.125%) 480 ML BOTTLE TOP SCH (08:44)
[2020-10-10] MEDS: Magnesium 1GM/D5W 100ML PREMIX 100 ML IV SCH ×2 (08:44→10:39)
[2020-10-10] MEDS: MEROPENEM 1 G in IV NS 0.9% 100 ML IV SCH (08:45)
[2020-10-10] MEDS: HYDROGEL DRESSING 90 GM TUBE TP SCH (08:45)
[2020-10-10 09:11] LABS: EOSINOPHILS % (MANUAL) 1 % (0-4); LYMPHOCYTES % (MANUAL) 16 % (16-48); MONOCYTES % (MANUAL) 7 % (0-11.0); NEUTROPHILS % (MANUAL) 76 (42-76)
--- NOTE | 2020-10-10 11:23 | NUR ---
RN NOTE PT REPORT GIVEN TO JULIO KRISHNAN AT [facility], PT TO GO TO ROOM 1203-1
--- NOTE | 2020-10-10 11:57 | NUR ---
RN NOTE PT DISCHARGED WITH AMBULANCE IN STABLE CONDITION. REPORT GIVEN TO EMT. ALL SAFETY PRECAUTIONS IN PLACE. KEVEN MIDLINE LEFT IN PLACE PT WILL BE NEEDING IV ABX TREATMENT, RECEIVING RN AWARE
== END 2020-10-10 12:05 | disposition short-term general hospital (02) ==
LOC: ER 16:04 → MEDSG1 22:00
PROVIDERS: ADMIT Nurse Practitioner Acute Care; ATTEND Registered Nurse
PROC: 05HB33Z Insertion of Infusion Device into Right Basilic Vein, Percutaneous Approach (ICD-10-PCS; principal; 2020-10-07)
DX: K80.00 Calculus of gallbladder with acute cholecystitis without obstruction (principal); N17.0 Acute kidney failure with tubular necrosis; M72.6 Necrotizing fasciitis; E43 Unspecified severe protein-calorie malnutrition; K31.84 Gastroparesis; Z93.0 Tracheostomy status; E11.43 Type 2 diabetes mellitus with diabetic autonomic (poly)neuropathy; N18.9 Chronic kidney disease, unspecified; D50.9 Iron deficiency anemia, unspecified; Z68.34 Body mass index [BMI] 34.0-34.9, adult; Z87.442 Personal history of urinary calculi; Z20.822 Contact with and (suspected) exposure to COVID-19; Z86.16 Personal history of COVID-19; Z79.4 Long term (current) use of insulin; Z79.899 Other long term (current) drug therapy; R74.01 Elevation of levels of liver transaminase levels; Z87.39 Personal history of other diseases of the musculoskeletal system and connective tissue; N26.1 Atrophy of kidney (terminal); K82.8 Other specified diseases of gallbladder; K76.0 Fatty (change of) liver, not elsewhere classified; E87.0 Hyperosmolality and hypernatremia; E87.6 Hypokalemia; S31.000A Unspecified open wound of lower back and pelvis without penetration into retroperitoneum, initial encounter; E11.22 Type 2 diabetes mellitus with diabetic chronic kidney disease
CPT/HCPCS: 36410; 36415; 74181-TC; 76705-TC; 78226; 80048-TC; 80053-TC; 80061-TC; 80076-TC; 80202-TC; 81001; 82247-TC; 82248-TC; 82436-TC; 82570-TC; 82962-TC; 83690-TC; 83735-TC; 84100-TC; 84133-TC; 84155-TC; 84300-TC; 84703-TC; 85025-TC; 87081-TC; 87086-TC; A6248; A6253; A6403; A9537; A9563; G0378; J0696; J1815; J2185; J2270; J2405; J2543; J2765; J3370; J3475; J3480; J3490; J7030; J7042; J7050; J7060; J7070; U0003

== ENCOUNTER 2020-10-28 11:04 | Inpatient (IN) | payer OTHER ==
[~2020-10-28] VITALS: Ht 157.5 cm; Wt 97.5 kg
[~2020-10-28 11:04] MED LIST: ALLA266C2 TP; AMIN30LI2 PO; ASCO-352 PO; BISA10SU11 RC; DOCU-141 PO; HYDR-3980 PO; HYDR4TAB57 PO; INSU100V3 SQ; LACT1CAP61 PO; LIDOCAINE HCL IM; MAGN400O6 PO; MEDI HONEY TD; METF-440 PO; MORP15TA PO; MULT-24 PO; NA P133E RC; NEOM1OIN19 TP; ONDA4TAB5 PO; SENN-261 PO; ZINC1CAP3 PO
[2020-11-04 21:30] VITALS: BP 109/67
[2020-11-04 22:00] VITALS: BP 109/67
--- NOTE | 2020-11-04 22:00 | NUR ---
MS/RN ADMITTING NOTE PATIENT IS DIRECT ADMIT FROM [facility]. ARRIVED TO THE UNIT VIA DONITARAB[facility], 2 CAMP GUARD AND ONE RN. PATIENT ACCOMPANIED TO ROOM 322-2. PATIENT IS ALERT AND ORIENTED X 3. ABLE TO MAKE NEEDS KNOWN. PRIMARILY YI SPEAKING BUT UNDERSTANDS URDU. NO COMPLAINTS OF PAIN AT THIS TIME. CONTINUES ON ROOM AIR WITH NO S/SX OF RESPIRATORY DISTRESS NOTED. IV TO LEFT UPPER ARM MIDLINE INTACT, PATENT AND SALINE LOCKED. PATIENT HAS LEFT EXTERNAL JUGULAR HD CATH WHICH DRESSING IS INTACT. PATIENT HAS JACKSON CATHETER DRAINING RED HEMATURIA. DIRECTOR PROJECT MANAGEMENT MD PERALES NOTIFIED. RECTAL TUBE INTACT DRAINING WATERY BROWN STOOL. SKIN CHECK PERFORMED ON ADMISSION BUT ONLY ABLE TO COMPLETE HALF OF SKIN CHECK D/T PATIENT REFUSING. UNABLE TO ASSESS POSTERIOR ASPECT OF PATIENT. PATIENT WITH MULTIPLE BRUISES, SCABS AND EXCORIATION. PICTURES TAKEN AND PLACED IN CHART. WOUND CONSULT INITIATED. PATIENT HAS ABDOMINAL WOUND WITH DRESSING INTACT. PATIENT CURRENTLY NAUSEAS WITH ONE EPISODE OF EMESIS WHICH WAS CLEAR IN COLOR. ADMINISTERED PRN ZOFRAN WITH PENDING EFFECT. WILL ATTEMPT TO CHANGE DRESSING WHEN NAUSEA CEASES. PATIENT HAS NG TUBE TO RIGHT NARE FOR CONTINUOUS TUBE FEED. NGT PATENT WITH POSITIVE AUSCULTATION. PATIENT ORIENTED TO ROOM, CALL PERDOMO AND UNIT. CALL LIGHT WITHIN REACH. ASPIRATION, FALL AND SAFETY PRECAUTIONS MAINTAINED. WILL CONTINUE TO MONITOR.
[2020-11-04] MEDS ORDERED: NA PHOS,M-B/NA PHOS,DI-BA 1 EA ENEMA RC PRN (23:30)
[2020-11-04] MEDS ORDERED: MAGNESIUM HYDROXIDE 30 ML UDC PO PRN (23:30)
[2020-11-04] MEDS ORDERED: BISACODYL SUPP (10 MG) 10 MG/SUPP.RECT SUPP.RECT RC PRN (23:30)
--- NOTE | 2020-11-04 23:30 | NUR ---
MS/RN NOTE PATIENT WAS SENT WITH WOUND VAC DRESSING BUT NO WOUND VAC MACHINE. UNABLE TO APPLY WOUND VAC AT THIS TIME SINCE NO MACHINE AVAILABLE. WET TO DRY DRESSING APPLIED TO ABDOMINAL WOUND. WOUND CONSULT IN PLACE. WILL CONTINUE TO MONITOR.
[2020-11-04] MEDS ORDERED: MICA100V3 (23:56)
[2020-11-05] MEDS ORDERED: ACETAMINOPHEN 650 MG/20.3 ML UDC NG PRN
[2020-11-05] MEDS: ONDANSETRON HCL/PF 4 MG/2 ML VIAL IV PRN ×2 (00:42→12:40)
[2020-11-05] MEDS ORDERED: VITAL AF 1.2 1,000 ML BOTTLE NG PRN (01:48)
[2020-11-05] MEDS: HYDROMORPHONE 1 MG/1 ML DISP.SYRIN IV PRN ×2 (03:56→12:40)
--- NOTE | 2020-11-05 05:30 | NUR ---
MS/RN NOTE CONTACTED ITA MARTINEZ TO CLARIFY IF PATIENT CAN TOLERATE PO OR ONLY NGT. SPOKE WITH RN TAKING CARE OF PATIENT LAST NIGHT. RN STATES SHE HAS BEEN EATING BY MOUTH AND TAKING MEDICATIONS CRUSHED BY MOUTH. NG TUBE IS ONLY FOR FEEDINGS IF NEEDED.
[2020-11-05] MEDS: BLOOD SUGAR DIAGNOSTIC 1 EACH STRIP IN SCH ×4 (06:33→21:59)
--- NOTE | 2020-11-05 06:37 | NUR ---
MS/RN CLOSING NOTE PATIENT CURRENTLY RESTING IN BED. AWAKE, ALERT AND ORIENTED X 3. ABLE TO MAKE NEEDS KNOWN. NO COMPLAINTS OF PAIN AT THIS TIME. IV ACCESS TO LEFT UPPER ARM MIDLINE INTACT, PATENT AND SALINE LOCKED. NGT IN PLACE. PATIENT CURRENTLY ON PUREED DIET WITH THIN LIQUIDS. TAKING MEDICATIONS CRUSHED BY MOUTH. BLOOD GLUCOSE THIS AM IS 113. NO S/SX OF NAUSEA OR VOMITING AT THIS TIME. DRESSING TO ABDOMEN CLEAN, DRY AND INTACT. WOUND CONSULT IN PLACE. DIETARY CONSULT IN PLACE. CALL LIGHT WITHIN REACH. ASPIRATION, FALL AND SAFETY PRECAUTIONS MAINTAINED. WILL CONTINUE TO MONITOR.
[2020-11-05 06:44] LABS: BASOPHILS % (AUTO) 0.4 % (0.0-2.0); EOSINOPHILS % (AUTO) 0.8 % (0.0-6.0); HEMATOCRIT 26 % (33-45); HEMOGLOBIN 8.2 g/dL (11.5-14.8); LYMPHOCYTES # (AUTO) 1.9 /CMM (0.8-4.8); LYMPHOCYTES % (AUTO) 15.3 % (20.0-44.0); MEAN CORPUSCULAR HGB CONC 32 g/dl (31.0-36.0); MEAN CORPUSCULAR VOLUME 93 fL (82-100); MONOCYTES # (AUTO) 0.4 /CMM (0.1-1.30); MONOCYTES % (AUTO) 3.5 % (2.0-12.0); NEUTROPHILS # (AUTO) 10.1 /CMM (1.8-8.9); PLATELET COUNT (AUTO) 219 /CMM (150-450); RED BLOOD CELL COUNT(AUTO) 2.75 MIL/uL (4.0-5.2); WHITE BLOOD COUNT (AUTO) 12.6 K/uL (4.3-11.0)
[2020-11-05 08:00] VITALS: BP 101/65
--- NOTE | 2020-11-05 08:35 | NUR ---
MS RN OPENING NOTE RECEIVED PATIENT IN BED. A/O X3. ON ROOM AIR, TOLERATING WELL. NO SOB NOTED. NO S/S OF RESPIRATORY DISTRESS. NGT TUBE ON THE R NARE, IN PLACE. IV ACCESS ON L UPPER ARM MIDLINE, INTACT. L JUGULAR HD CATH C/D/I. JACKSON CATHETER IN PLACE, DRAINING BLOODY URINE. FLEXI SEAL INTACT. CURRENTLY ON PUREE DIET. PT HAS MULTIPLE WOUNDS. SAFETY MEASURES MAINTAINED. BED IN LOWEST POSITION, BRAKES LOCKED. SIDE RAILS UP X2. CALL LIGHT WITHIN REACH. WILL CONTINUE PLAN OF CARE.
[2020-11-05 08:52] LABS: ALBUMIN 1.8 g/dL (3.4-5.0); BILIRUBIN,TOTAL 0.8 mg/dL (0.2-1.0); CALCIUM, SERUM 8.5 mg/dL (8.5-10.1); CREATININE 2.1 mg/dL (0.6-1.3); MAGNESIUM 2.1 mg/dL (1.8-2.4); POTASSIUM 2.9 mmol/L (3.5-5.1); TOTAL PROTEIN, SERUM 5.2 g/dL (6.4-8.2)
--- NOTE | 2020-11-05 08:57 | NUR ---
RN NOTE CRITICAL VALUE REPORTED BY iBllie ADAMS IS 159, INFORMED DR. RALPH WHEAT AT 0953. Addendum: 11/05/20 at 0956 by MELI HERNANDEZ RN INFORMED DR. RALPH WHEAT AT 0905.
[2020-11-05] MEDS ORDERED: Medication Not On Formulary EA (Lactobacillus Acidophilus (Acidophilus) 1 EACH) PO SCH (09:00)
[2020-11-05] MEDS ORDERED: DOCUSATE SODIUM 100 MG CAPSULE PO SCH (09:00)
[2020-11-05] MEDS ORDERED: Medication Not On Formulary EA (Amino Acids/Protein Hydrolys (Pro-Stat Liquid) 30 ML) PO SCH (09:00)
[2020-11-05] MEDS ORDERED: ZINC SULFATE 220 MG CAPSULE PO SCH (09:00)
[2020-11-05] MEDS ORDERED: METFORMIN 500 MG TABLET PO SCH (09:00)
[2020-11-05] MEDS ORDERED: BACI/NEOM/POLY B OINT PKT 1 UDPKT PACKET TP SCH (09:00)
[2020-11-05] MEDS ORDERED: MORPHINE SULFATE IR 15 MG TABLET PO SCH (09:00)
[2020-11-05] MEDS ORDERED: MULTIVITAMINS,THERAGRAN 1 UDTAB TABLET PO SCH (09:00)
[2020-11-05] MEDS ORDERED: ASCORBIC ACID 500 MG TABLET PO SCH (09:00)
--- NOTE | 2020-11-05 09:22 | NUR ---
WOUND CARE CONSULT: PT SEEN FOR SKIN ASSESSMENT AND NOTED TO HAVE MULTIPLE SKIN ISSUES AND WOUNDS, PRESENT ON ADMISSION INCLUDING SCABS/DISCOLORATIONS TO LOWER EXTREMITIES, HUGE ABDOMINAL SURGICAL WOUND, STAGE 3 ULCERS TO BILATERAL BUTTOCKS, LEFT ARM DRY NECROTIC WOUND AND RT BACK UNSTAGEABLE NECROTIC WOUND. SURGICAL CONSULT MADE TO DR BENJI GLORIA. RECOMMENDATIONS MADE FOR SKIN PROTECTION AND WOUND CARE. DISCUSSED WITH NURSING STAFF. PT TO BE PLACED ON MUSHTAQ ISOFLEX LOW AIRLOSS BED. PT NOTED TO HAVE JACKSON CATHETER WITH DARK RED URINE AND RECTAL TUBE WITH BROWN STOOL. SOME LEAKAGE AROUND RECTAL TUBE NOTED WITH INCONTINENCE ASSOCIATED SKIN DAMAGE TO PERIANAL AREA AND LOWER BUTTOCKS, PRESENT ON ADMISSION. PT ALSO NOTED TO HAVE HEALING TRACH. MD IN AGREEMENT WITH PLAN OF CARE. Addendum: 11/05/20 at 0926 by LUIS FREY WNDNU Amended: Links added.
[2020-11-05] MEDS ORDERED: HYDROGEL DRESSING 90 GM TUBE TP PRN (09:30)
--- NOTE | 2020-11-05 09:50 | NUR ---
RN NOTE RECEIVED ORDERS FROM DR. RALPH WHEAT TO KEEP THE PT. ON NPO AND FLUSH THE JACKSON WITH 40 CC Q4. READ BACK ORDERS AND CARRIED OUT.
--- NOTE | 2020-11-05 09:55 | NUR ---
RN NOTE DR ROSAS ORDERED PT TO BE ON LOW INTERMITTENT SUCTION. ORDER READ BACK AND CARRIED OUT.
[2020-11-05] MEDS ORDERED: Potassium Chloride 20 MEQ in IV D5/0.45 NACL 1,000 ML IV PRN (10:30)
[2020-11-05] MEDS: POTASSIUM CL. PREMIX PERIPHER. 50 ML IV SCH ×3 (10:40→13:54)
[2020-11-05] MEDS: DAKINS QUARTER STRENGTH (0.125%) 480 ML BOTTLE TOP SCH (11:14)
[2020-11-05] MEDS: HYDROGEL DRESSING 90 GM TUBE TP SCH (11:15)
[2020-11-05] MEDS: Z GUARD REMEDY 2 OZ OINT TP SCH (11:16)
[2020-11-05 11:17] LABS: EOSINOPHILS % (MANUAL) 2 % (0-4); LYMPHOCYTES % (MANUAL) 15 % (16-48); MONOCYTES % (MANUAL) 4 % (0-11.0); NEUTROPHILS % (MANUAL) 79 (42-76)
--- NOTE | 2020-11-05 13:40 | NUR ---
RN NOTE OBTAINED SPECIMEN FOR URINALYSIS PROFILE AND TEST. CALLED LAB TO COLLECT THE SPECIMEN IN THE REFRIGERATOR.
[2020-11-05 16:00] VITALS: BP 100/56
[2020-11-05] MEDS ORDERED: NA PHOS,M-B/NA PHOS,DI-BA 1 EA ENEMA RC PRN (16:00)
[2020-11-05] MEDS ORDERED: BISACODYL SUPP (10 MG) 10 MG/SUPP.RECT SUPP.RECT RC PRN (16:00)
[2020-11-05] MEDS ORDERED: MAGNESIUM HYDROXIDE 30 ML UDC PO PRN (16:00)
[2020-11-05] MEDS: DOCUSATE SODIUM 100 MG CAPSULE PO SCH (16:39)
--- NOTE | 2020-11-05 18:23 | NUR ---
MS RN CLOSING NOTE PATIENT RESTING IN BED. A/O X3. ON ROOM AIR, SATURATING WELL AT 96%. NO SOB NOTED. NO S/S OF RESPIRATORY DISTRESS. KEPT HOB 45 DEGREES AT ALL TIMES. NGT TUBE ON THE R NARE, IN PLACE, CONNECTED TO LOW INTERMITTENT SUCTION WITH 300 ML OUTPUT. IV ACCESS ON L UPPER ARM MIDLINE, INTACT AND PATENT, D5 1/2 NS WITH KCL 20 Meq CURRENTLY RUNNING AT 100 ML/HR. L JUGULAR HD CATH C/D/I. JACKSON CATHETER IN PLACE, DRAINING BLOODY URINE. FLEXI SEAL INTACT, 100 OUTPUT. CURRENTLY ON NPO DIET. WOUND TREATMENT ORDERED. FLUSHED JACKSON WITH 40 CC Q4. TURNED POSITION Q2. SAFETY MEASURES MAINTAINED. BED IN LOWEST POSITION, BRAKES LOCKED. SIDE RAILS UP X2. CALL LIGHT WITHIN REACH. WILL ENDORSE CONTINUITY OF CARE TO ONCOMING SHIFT. Addendum: 11/05/20 at 1847 by MELI HERNANDEZ RN JACKSON CATHETER IN PLACE, DRAINING BLOODY URINE, 1120 CC OUTPUT
--- NOTE | 2020-11-05 19:18 | NUR ---
MS RN: CONTINUITY OF CARE Patient in bed, awake. Tolerating room air, no c/o shortness of breath. IVF infusing. NGT to LIWS. Mancuso cath to gravity, urine bloody. Turned and repositioned. Fall precaution maintained.
--- NOTE | 2020-11-05 20:00 | NUR ---
MS RN: Flush harry with 40cc sterile water, urine still bloody with streak of blood.
[2020-11-05] MEDS: PIPERACILLIN /TAZOBACTAM 2.25 G in IV D5W 50 ML IV SCH (20:08)
[2020-11-05 20:17] VITALS: BP 101/57
[2020-11-05 20:22] LABS: BILIRUBIN,URINE NEGATIVE (NEGATIVE); COLOR,URINE AMBER (YELLOW); LEUKOCYTE ESTERASE ,URINE MODERATE (NEGATIVE); NITRITE, URINE NEGATIVE (NEGATIVE); PROTEIN,URINE 100 mg/dl (NEGATIVE); UGLUCOSE NEGATIVE (NEGATIVE); UROBILINOGEN,URINE 0.2 EU/dL (0.2)
[2020-11-05 20:25] VITALS: BP 101/57
[2020-11-05 20:29] LABS: BACTERIA,URINE 3+ /HPF (None Seen); RBC,URINE TOO NUMEROUS TO COUN /HPF (0-2); SQUAMOUS EPITHELIAL CELL,UR Few /HPF (None Seen); URINE AMORPHOUS PHOSPHATES Moderate /HPF (None Seen); WBC,URINE TOO NUMEROUS TO COUN /HPF (0-3)
[2020-11-05] MEDS: MICAFUNGIN SODIUM 100 MG in IV NS 0.9% 100 ML IV SCH (21:42)
[2020-11-05] MEDS: SENNOSIDES 8.6 MG TABLET PO SCH (21:46)
[2020-11-05] MEDS ORDERED: SENNOSIDES 8.6 MG TABLET PO SCH (22:00)
--- NOTE | 2020-11-05 22:01 | NUR ---
MS RN: ACCU CHECK FSBG 100mg/dl. No insulin sliding parameter ordered.
--- NOTE | 2020-11-06 00:12 | NUR ---
MS RN: Urine red with streak of blood, flush harry with 40cc sterile water as ordered.
--- NOTE | 2020-11-06 02:10 | NUR ---
MS RN: TRANSFERRED OF CARE Wound dressing done. Report given to Rimma/JULIO for continuity of care. Patient in bed, not in distress. Fall precaution maintained.
[2020-11-06] MEDS: PIPERACILLIN /TAZOBACTAM 2.25 G in IV D5W 50 ML IV SCH ×3 (03:41→20:15)
[2020-11-06] MEDS: BLOOD SUGAR DIAGNOSTIC 1 EACH STRIP IN SCH ×4 (06:51→22:11)
--- NOTE | 2020-11-06 06:51 | NUR ---
BS NOTED AT 96. NO INSULIN SLIDING PARAMETER ORDERED.
[2020-11-06 06:58] LABS: BASOPHILS # (AUTO) 0.1 /CMM (0.0-0.2); BASOPHILS % (AUTO) 0.6 % (0.0-2.0); EOSINOPHILS % (AUTO) 2.1 % (0.0-6.0); HEMATOCRIT 26 % (33-45); HEMOGLOBIN 8.4 g/dL (11.5-14.8); LYMPHOCYTES # (AUTO) 1.7 /CMM (0.8-4.8); LYMPHOCYTES % (AUTO) 14.4 % (20.0-44.0); MEAN CORPUSCULAR HGB CONC 32 g/dl (31.0-36.0); MEAN CORPUSCULAR VOLUME 93 fL (82-100); MONOCYTES # (AUTO) 0.6 /CMM (0.1-1.30); MONOCYTES % (AUTO) 4.7 % (2.0-12.0); NEUTROPHILS # (AUTO) 9.3 /CMM (1.8-8.9); NEUTROPHILS % (AUTO) 78.2 % (43.0-81.0); PLATELET COUNT (AUTO) 264 /CMM (150-450); RED BLOOD CELL COUNT(AUTO) 2.78 MIL/uL (4.0-5.2); WHITE BLOOD COUNT (AUTO) 11.9 K/uL (4.3-11.0)
--- NOTE | 2020-11-06 06:58 | NUR ---
MS RN CLOSING NOTE PT IS IN BED WITH EYES CLOSED, EASILY AROUSED. A/O X4. PT STABLE ON ROOM AIR. NO SOB OR S/S OF RESPIRATORY DISTRESS NOTED. PT NOTED WITH NGT IN THE RIGHT NARES, INTACT, CONNECTED TO LOW INTERMITTENT SUCTION WITH 150 ML OUTPUT. IV ACCESS INTACT, PATENT, AND FLUSHING WELL. JACKSON CATH IN PLACE DRAINING BLOODY URINE, 400 ML OUTPUT. FLEXI SEAL INTACT, 40 ML OUTPUT. ALL NEEDS HAVE BEEN MET. WOUND CARE ADMINISTERED PER ORDER. PT REPOSITIONED Q2H AND PRN. SAFETY PRECAUTIONS MAINTAINED AT ALL TIMES. BED IN LOWEST LOCKED POSITION, HOB KEPT AT 45 DEGREES, SIDE RAILS UP X2. CALL LIGHT AND TABLE WITHIN REACH. WILL ENDORSE TO ONCOMING NURSE FOR MERCED.
[2020-11-06 07:29] LABS: ALBUMIN 1.7 g/dL (3.4-5.0); BILIRUBIN,DIRECT 0.5 mg/dL (0.0-0.2); BILIRUBIN,TOTAL 0.8 mg/dL (0.2-1.0); CALCIUM, SERUM 8.6 mg/dL (8.5-10.1); CREATININE 2.1 mg/dL (0.6-1.3); PHOSPHORUS 3.2 mg/dL (2.5-4.9); POTASSIUM 2.9 mmol/L (3.5-5.1)
--- NOTE | 2020-11-06 07:30 | NUR ---
PT RECEIVED RESTING COMFORTABLY IN BED. NO S/S OR C/O PAIN OR DISTRESS NOTED. SIDE RAILS UP X2, CALL LIGHT LEFT WITHIN REACH. WILL CONTINUE PLAN OF CARE.
[2020-11-06 08:00] VITALS: BP 139/86
[2020-11-06] MEDS: ONDANSETRON HCL/PF 4 MG/2 ML VIAL IV PRN (08:21)
[2020-11-06] MEDS: MULTIVITAMINS,THERAGRAN 1 UDTAB TABLET PO SCH (08:21)
[2020-11-06] MEDS: DOCUSATE SODIUM 100 MG CAPSULE PO SCH ×2 (08:21→17:00)
[2020-11-06] MEDS: ASCORBIC ACID 500 MG TABLET PO SCH (08:22)
[2020-11-06] MEDS: ZINC SULFATE 220 MG CAPSULE PO SCH (08:22)
[2020-11-06] MEDS ORDERED: Potassium Chloride 40 MEQ in IV D5W 1,000 ML IV STA (08:44)
[2020-11-06] MEDS: DAKINS QUARTER STRENGTH (0.125%) 480 ML BOTTLE TOP SCH (09:34)
[2020-11-06] MEDS: Z GUARD REMEDY 2 OZ OINT TP SCH (09:35)
[2020-11-06] MEDS: HYDROGEL DRESSING 90 GM TUBE TP SCH (09:35)
[2020-11-06 10:00] LABS: BAND % (MANUAL) 3 % (0.0-5.0); EOSINOPHILS % (MANUAL) 3 % (0-4); LYMPHOCYTES % (MANUAL) 12 % (16-48); MONOCYTES % (MANUAL) 4 % (0-11.0); MYELOCYTES % 2 % (0-0); NEUTROPHILS % (MANUAL) 76 (42-76)
[2020-11-06] MEDS ORDERED: LIDOCAINE 1%-EPI 1:100,000 20 ML VIAL TP ONE (11:00)
[2020-11-06] MEDS ORDERED: SILVER NITRATE APPLICATOR 1 EA BOX TP ONE (11:00)
[2020-11-06] MEDS: HYDROMORPHONE 1 MG/1 ML DISP.SYRIN IV PRN ×2 (11:46→20:50)
[2020-11-06] MEDS: POTASSIUM CL. PREMIX PERIPHER. 50 ML IV SCH ×4 (12:37→18:18)
[2020-11-06 16:00] VITALS: BP 114/58
[2020-11-06] MEDS ORDERED: Potassium Chloride 40 MEQ in IV D5W 1,000 ML IV PRN (18:30)
--- NOTE | 2020-11-06 19:30 | NUR ---
RN Opening Notes Patient was last seen awake resting in bed. Patient's alert and oriented x4. Pt's on room air with no respiratory distress noted. Pt has a left upper arm midline, which is intact and patent. Patient has no signs/symptoms of acute distress at this time. Will continue to monitor the patient. Addendum: 11/07/20 at 0644 by ILAN MANNING RN Safety measures in place: Bed locked, bed alarm on, side rails up x3, and call light within easy reach of the patient.
--- NOTE | 2020-11-06 19:33 | NUR ---
CHANGE OF SHIFT REPORT PT RESTING COMFORTABLY IN BED. NO S/S OR C/O PAIN OR DISTRESS NOTED. SIDE RAILS UP X2, CALL LIGHT LEFT WITHIN REACH. NO SIGNIFICANT CHANGES SINCE PREVIOUS SHIFT. WILL GIVE REPORT TO NOC RN
[2020-11-06] MEDS: Potassium Chloride 40 MEQ in IV D5W 1,000 ML IV SCH (19:36)
[2020-11-06 20:00] VITALS: BP 110/52
--- NOTE | 2020-11-06 20:50 | NUR ---
RN Notes Patient c/o 10/10 pain. Patient was given 1 mg of Dilaudid IV. Will continue to monitor the patient.
[2020-11-06] MEDS: MICAFUNGIN SODIUM 100 MG in IV NS 0.9% 100 ML IV SCH (21:15)
--- NOTE | 2020-11-06 21:59 | NUR ---
RN Notes Patient's blood sugar was 115 mg/dL. Will continue to monitor the patient.
[2020-11-06] MEDS: SENNOSIDES 8.6 MG TABLET PO SCH (22:00)
[2020-11-07] MEDS: PIPERACILLIN /TAZOBACTAM 2.25 G in IV D5W 50 ML IV SCH ×3 (04:09→20:44)
[2020-11-07] MEDS: Potassium Chloride 40 MEQ in IV D5W 1,000 ML IV SCH ×2 (04:10→07:43)
[2020-11-07] MEDS: ONDANSETRON HCL/PF 4 MG/2 ML VIAL IV PRN (05:49)
--- NOTE | 2020-11-07 06:22 | NUR ---
RN Notes Patient's blood sugar was 113mg/dL. Will continue to monitor the patient.
--- NOTE | 2020-11-07 06:40 | NUR ---
RN Closing Notes Patient was last seen awake resting in bed. Patient's alert and oriented x4. Pt's on room air with no respiratory distress noted. Pt has a left upper arm midline, which is intact and patent. Patient has no signs/symptoms of acute distress at this time. Will endorse care to the day shift nurse. Addendum: 11/07/20 at 0644 by ILAN MANNING RN Safety measures in place: Bed locked, bed alarm on, side rails up x3, and call light within easy reach of the patient.
[2020-11-07] MEDS: BLOOD SUGAR DIAGNOSTIC 1 EACH STRIP IN SCH ×4 (06:47→21:59)
[2020-11-07 06:50] LABS: CALCIUM, SERUM 8.5 mg/dL (8.5-10.1); CREATININE 2.2 mg/dL (0.6-1.3); MAGNESIUM 1.8 mg/dL (1.8-2.4); PHOSPHORUS 3.5 mg/dL (2.5-4.9); POTASSIUM 3.9 mmol/L (3.5-5.1)
[2020-11-07 07:05] LABS: BASOPHILS # (AUTO) 0.1 /CMM (0.0-0.2); EOSINOPHILS % (AUTO) 1.6 % (0.0-6.0); HEMATOCRIT 27 % (33-45); HEMOGLOBIN 8.6 g/dL (11.5-14.8); LYMPHOCYTES # (AUTO) 1.6 /CMM (0.8-4.8); LYMPHOCYTES % (AUTO) 12.5 % (20.0-44.0); MEAN CORPUSCULAR HGB CONC 32 g/dl (31.0-36.0); MEAN CORPUSCULAR VOLUME 94 fL (82-100); MONOCYTES # (AUTO) 0.4 /CMM (0.1-1.30); MONOCYTES % (AUTO) 3.3 % (2.0-12.0); NEUTROPHILS # (AUTO) 10.7 /CMM (1.8-8.9); NEUTROPHILS % (AUTO) 81.6 % (43.0-81.0); PLATELET COUNT (AUTO) 332 /CMM (150-450); RED BLOOD CELL COUNT(AUTO) 2.88 MIL/uL (4.0-5.2); WHITE BLOOD COUNT (AUTO) 13.1 K/uL (4.3-11.0)
--- NOTE | 2020-11-07 07:23 | NUR ---
MSRN OPENING Notes Patient was last seen awake resting in bed. Patient's alert and oriented x4. Pt's on room air with no respiraTORY DISTRESS, PT HAS RIMMA MIDLINE , INTACT, PATENT AND FLUSHING. NO S/S OF DISTRESS AT TIS TIME , NGT AT LIS
[2020-11-07 08:00] VITALS: BP 114/73
[2020-11-07] MEDS ORDERED: DIATR MEGLU/DIATRIZOATE SODIUM 120 ML BOTTLE (GASTROGRAPHIN) ONE (08:48)
[2020-11-07] MEDS: ZINC SULFATE 220 MG CAPSULE PO SCH (09:00)
[2020-11-07] MEDS: ASCORBIC ACID 500 MG TABLET PO SCH (09:00)
[2020-11-07] MEDS: MULTIVITAMINS,THERAGRAN 1 UDTAB TABLET PO SCH (09:00)
[2020-11-07] MEDS: DOCUSATE SODIUM 100 MG CAPSULE PO SCH ×2 (09:00→17:00)
[2020-11-07 09:34] LABS: BAND % (MANUAL) 2 % (0.0-5.0); EOSINOPHILS % (MANUAL) 1 % (0-4); LYMPHOCYTES % (MANUAL) 11 % (16-48); MONOCYTES % (MANUAL) 3 % (0-11.0); NEUTROPHILS % (MANUAL) 83 (42-76)
[2020-11-07] MEDS: HYDROGEL DRESSING 90 GM TUBE TP SCH (09:35)
[2020-11-07] MEDS: Z GUARD REMEDY 2 OZ OINT TP SCH (09:35)
[2020-11-07] MEDS: DAKINS QUARTER STRENGTH (0.125%) 480 ML BOTTLE TOP SCH (09:36)
[2020-11-07] MEDS: HYDROMORPHONE 1 MG/1 ML DISP.SYRIN IV PRN (15:06)
[2020-11-07 16:00] VITALS: BP 97/67
--- NOTE | 2020-11-07 18:27 | NUR ---
MSRN CLOSING Notes Patient was last seen awake resting in bed. Patient's alert and oriented x4. Pt's on room air with no respiraTORY DISTRESS, PT HAS RIMMA MIDLINE , INTACT, PATENT AND FLUSHING. NO S/S OF DISTRESS AT TIS TIME , WOUND TX DONE .
[2020-11-07 20:00] VITALS: BP 112/68
[2020-11-07] MEDS ORDERED: Potassium Chloride 40 MEQ in IV D5W 1,000 ML IV SCH (20:00)
--- NOTE | 2020-11-07 21:06 | NUR ---
MS RN OPENING NOTE RECEIVED PATIENT IN BED, AWAKE, A/O X3. ON ROOM AIR, TOLERATING WELL. NO SOB NOTED. NO S/S OF ACUTE DISTRESS NOTED AT THIS TIME. NGT TUBE ON THE L NARE, IN PLACE. ON INTERMITTENT SUCTIONING, IV ACCESS ON L UPPER ARM MIDLINE, INTACT, WITH IV OF D5W 1L + 20 MEQS KCL X 100CC/HR, INFUSING WELL, NO REDNESS, NO INFILTRATION NOTED. L JUGULAR HD CATH C/D/I. [address] WAY JACKSON CATHETER IN PLACE, ON CONTINUOUS BLADDER IRRIGATION, DARK YELLOW OUTPUT NOTED. FLEXI SEAL INTACT. REINFORCED NPO. PT NOTED WITH MULTIPLE WOUNDS. SAFETY MEASURES OBSERVED; BED IN LOWEST LOCKED POSITION. SIDE RAILS UP X2. CALL LIGHT WITHIN REACH. WILL CONTINUE TO MONITOR PATIENT'S CURRENT STATUS.
[2020-11-07] MEDS: MICAFUNGIN SODIUM 100 MG in IV NS 0.9% 100 ML IV SCH (21:29)
[2020-11-07] MEDS: SENNOSIDES 8.6 MG TABLET PO SCH (21:52)
--- NOTE | 2020-11-07 22:00 | NUR ---
RN NOTES PATIENT BLOOD SUGAR WAS 120 MG/DL. WILL CONTINUE TO MONITOR.
--- NOTE | 2020-11-08 00:24 | NUR ---
MS RN NOTES REPORT GIVEN TO KIAN KIM FOR [facility].
[2020-11-08] MEDS: PIPERACILLIN /TAZOBACTAM 2.25 G in IV D5W 50 ML IV SCH ×3 (04:59→20:25)
[2020-11-08 06:27] LABS: BASOPHILS # (AUTO) 0.1 /CMM (0.0-0.2); EOSINOPHILS % (AUTO) 1.9 % (0.0-6.0); HEMATOCRIT 26 % (33-45); HEMOGLOBIN 8.2 g/dL (11.5-14.8); LYMPHOCYTES # (AUTO) 1.6 /CMM (0.8-4.8); LYMPHOCYTES % (AUTO) 12.9 % (20.0-44.0); MEAN CORPUSCULAR HGB CONC 32 g/dl (31.0-36.0); MEAN CORPUSCULAR VOLUME 95 fL (82-100); MONOCYTES # (AUTO) 0.5 /CMM (0.1-1.30); MONOCYTES % (AUTO) 3.8 % (2.0-12.0); NEUTROPHILS # (AUTO) 10.2 /CMM (1.8-8.9); NEUTROPHILS % (AUTO) 80.4 % (43.0-81.0); PLATELET COUNT (AUTO) 321 /CMM (150-450); RED BLOOD CELL COUNT(AUTO) 2.75 MIL/uL (4.0-5.2); WHITE BLOOD COUNT (AUTO) 12.7 K/uL (4.3-11.0)
[2020-11-08 06:38] LABS: CALCIUM, SERUM 8.1 mg/dL (8.5-10.1); CREATININE 2.1 mg/dL (0.6-1.3); MAGNESIUM 1.7 mg/dL (1.8-2.4); PHOSPHORUS 3.4 mg/dL (2.5-4.9)
[2020-11-08] MEDS: BLOOD SUGAR DIAGNOSTIC 1 EACH STRIP IN SCH ×4 (06:52→22:35)
--- NOTE | 2020-11-08 07:15 | NUR ---
RN NOTES: RECEIVED CRITICAL LABS OF NA AT 157 PRIOR TO THAT [id number] THOMPSON, AND ADVISE TO RELAY THE LABS TO NEPROLOGIST ENDORSE TO INCOING NURSE.
--- NOTE | 2020-11-08 07:30 | NUR ---
RN CLOSING NOTES PATIENT WAS AWAKE IN BED, BED IN LOW POSITION, CALL LIGHTS WITHIN REACH, NO COMPLAIN OF PAIN AND DISCOMFORT,WITH NGT TO LIS, FLEXISEAL WAS CHANGE ON NSS IRRIGATION, POSSIBLE LEAK, DID TRIED BEST TO REPLACE, BUT UNSUCCESFUL, RN AND CN MADE AWARE, RECEIVED CRITICAL LABS OF NA 157 TRENDING DOWN, MADE AWARE, ALL NEEDS MET, KEPT CLEAN AND DRY, WILL CONTINUE TO MONITOR.
--- NOTE | 2020-11-08 07:43 | NUR ---
MS RN OPENING NOTE RECEIVED PATIENT IN BED, AWAKE, A/O X3. ON ROOM AIR, TOLERATING WELL. NO SOB NOTED. NO S/S OF ACUTE DISTRESS NOTED AT THIS TIME. NGT ON THE L NARIS, IN PLACE ON INTERMITTENT SUCTIONING. MIDLINE ON RIMMA, INTACT, WITH IV OF D5W 1L + 20 MEQS KCL X 100CC/HR, INFUSING WELL, NO REDNESS, NO INFILTRATION NOTED. L JUGULAR HD CATH C/D/I. 3 WAY JACKSON CATHETER IN PLACE, ON CONTINUOUS BLADDER IRRIGATION. FLEXI SEAL INTACT. REINFORCED NPO. PT NOTED WITH MULTIPLE WOUNDS. SAFETY MEASURES OBSERVED; BED IN LOWEST LOCKED POSITION. SIDE RAILS UP X2. CALL LIGHT WITHIN REACH. WILL CONTINUE TO MONITOR PATIENT.
[2020-11-08 08:00] VITALS: BP 111/69
[2020-11-08] MEDS: HYDROMORPHONE 1 MG/1 ML DISP.SYRIN IV PRN ×3 (08:00→22:18)
--- NOTE | 2020-11-08 08:04 | NUR ---
MS RN NOTES PATIENT COMPLAINING OF ABDOMINAL PAIN; FACIAL GRIMACING, RUBBING SITE. PRN PAIN MEDICATION ADMINISTERED. WILL REASSESS.
[2020-11-08] MEDS: MULTIVITAMINS,THERAGRAN 1 UDTAB TABLET PO SCH (08:35)
[2020-11-08] MEDS: ZINC SULFATE 220 MG CAPSULE PO SCH (08:35)
[2020-11-08] MEDS: ASCORBIC ACID 500 MG TABLET PO SCH (08:35)
[2020-11-08] MEDS: DOCUSATE SODIUM 100 MG CAPSULE PO SCH ×2 (08:35→16:16)
--- NOTE | 2020-11-08 09:00 | NUR ---
RN NOTES: POTASSIUM CHLORIDE 40 MQ INCORPORATED TO D5W NOT YET INFUSED THERE IS STILL REMAINING 350CC ON THE BAG ENDORSE TO INCOMING NURSE TO HOOK WHENEVER ITSW DONE CN AND PHARMACY MADE AWARE
[2020-11-08] MEDS: HYDROGEL DRESSING 90 GM TUBE TP SCH (09:23)
[2020-11-08] MEDS: DAKINS QUARTER STRENGTH (0.125%) 480 ML BOTTLE TOP SCH (09:23)
[2020-11-08] MEDS: Z GUARD REMEDY 2 OZ OINT TP PRN (09:23)
[2020-11-08] MEDS: Z GUARD REMEDY 2 OZ OINT TP SCH (09:24)
[2020-11-08] MEDS ORDERED: Magnesium 1GM/D5W 100ML PREMIX 100 ML IV SCH (10:30)
[2020-11-08 10:52] LABS: ALBUMIN 1.5 g/dL (3.4-5.0); BILIRUBIN,DIRECT 0.4 mg/dL (0.0-0.2); BILIRUBIN,TOTAL 0.6 mg/dL (0.2-1.0); TOTAL PROTEIN, SERUM 4.8 g/dL (6.4-8.2)
[2020-11-08] MEDS: ALBUMIN 25% 25 GM in PREMIX 1 EA IV SCH ×2 (12:29→22:36)
--- NOTE | 2020-11-08 14:27 | NUR ---
MS RN NOTES PATIENT COMPLAINING OF ABDOMINAL PAIN; FACIAL GRIMACING, RUBBING SITE. PRN PAIN MEDICATION ADMINISTERED. WILL REASSESS.
[2020-11-08] MEDS: Potassium Chloride 40 MEQ in IV D5W 1,000 ML IV SCH (15:14)
[2020-11-08 16:00] VITALS: BP 119/61
--- NOTE | 2020-11-08 19:39 | NUR ---
MS RN OPENING NOTE PATIENT A/OX3 SLEEPING IN BED. TOLERATING ROOM AIR WELL WITH NO SOB. NGT RO L NARE WITH GREEN COLORED DRAINAGE. FLEXISEAL IN TACT. JACKSON CATH DRAINING WITH DARK ARAMIS URINE; PATENT AND INTACT. RIMMA MIDLINE KCL ON D5W @100 ML/HR. NO S/SX OF PAIN OR DISCOMFORT AT THIS TIME. SAFETY MEASURES IN PLACE: BED IN LOWEST LOCKED POSITION, SIDE RAILS UPX2, CALL LIGHT WITHIN EASY REACH, BED ALARMS ON. PATIENT IN STABLE CONDITION, WILL CONTINUE PLAN OF CARE.
[2020-11-08 20:00] VITALS: BP 90/53
[2020-11-08] MEDS ORDERED: TPN/PPN PER PHARMACY XX PRN (20:00)
--- NOTE | 2020-11-08 20:20 | NUR ---
MS RN NOTE RALPH BICYCLE COURIER PUT ORDERS FOR TPN PER PHARMACY RECOMMENDATION BECAUSE PATIENT IS NPO FOR OVER 1 WEEK. ALBUMIN 1.5. AYALA FROM PHARMACY AWARE. WILL ENDORSE TO REEVALUATE PATIENT'S NEEDS WHEN SWALLOW EVAL TOMORROW IS DONE.
[2020-11-08] MEDS: MICAFUNGIN SODIUM 100 MG in IV NS 0.9% 100 ML IV SCH (21:02)
[2020-11-08] MEDS: SENNOSIDES 8.6 MG TABLET PO SCH (21:57)
[2020-11-08] MEDS: ONDANSETRON HCL/PF 4 MG/2 ML VIAL IV PRN (22:17)
--- NOTE | 2020-11-08 22:17 | NUR ---
MS RN NOTE - PAIN AND NAUSEA PATIENT C/O 10/10 ABD PAIN AND NAUSEA. NO EMESIS NOTED. ADMINISTERED DILAUDID AND MORPHINE ORDERED. WILL CONTINUE TO REASSESS FOR PAIN, N/V IN 30 MINUTES.
--- NOTE | 2020-11-08 22:30 | NUR ---
MS RN NOTE - CONSENT EDUCATED PATIENT ON MRCP WITHOUT CONTRAST. PATIENT ATTEMPTED TO SIGNED CONSENT, AND GAVE VERBAL CONSENT. SIGNED CONSENT FORM WITH 2 RN'S WITNESS.
[2020-11-09] MEDS: Potassium Chloride 40 MEQ in IV D5W 1,000 ML IV SCH ×3 (01:45→22:23)
[2020-11-09] MEDS: PIPERACILLIN /TAZOBACTAM 2.25 G in IV D5W 50 ML IV SCH ×3 (03:54→20:11)
[2020-11-09] MEDS: HYDROMORPHONE 1 MG/1 ML DISP.SYRIN IV PRN ×3 (03:54→17:23)
--- NOTE | 2020-11-09 03:54 | NUR ---
MS RN NOTE PATIENT C/O 10/10 ABD PAIN. ADMINISTERED DILAUDID ORDERED. WILL REASSESS FOR PAIN IN 30 MINUTES.
[2020-11-09] MEDS: ONDANSETRON HCL/PF 4 MG/2 ML VIAL IV PRN ×2 (04:26→17:13)
--- NOTE | 2020-11-09 04:26 | NUR ---
MS RN NOTE - NAUSEA PATIENT C/O FEELING NAUSEOUS WITH GAGGING. NO EMESIS NOTED. ADMINISTERED ZOFRAN ORDERED. WILL CONTINUE TO REASSESS FOR N/V IN 30 MINUTES.
--- NOTE | 2020-11-09 05:00 | NUR ---
MS RN NOTE - UA COLLECTED URINE SAMPLE FOR UA VIA JACKSON CATH. URINE SAMPLE PUT IN FRIDGE AND NOTIFIED LAB.
[2020-11-09 06:36] LABS: BASOPHILS # (AUTO) 0.2 /CMM (0.0-0.2); EOSINOPHILS % (AUTO) 1.8 % (0.0-6.0); HEMATOCRIT 25 % (33-45); HEMOGLOBIN 7.8 g/dL (11.5-14.8); LYMPHOCYTES # (AUTO) 1.5 /CMM (0.8-4.8); MEAN CORPUSCULAR HGB CONC 31 g/dl (31.0-36.0); MEAN CORPUSCULAR VOLUME 96 fL (82-100); MONOCYTES # (AUTO) 0.4 /CMM (0.1-1.30); MONOCYTES % (AUTO) 3.6 % (2.0-12.0); NEUTROPHILS % (AUTO) 80.6 % (43.0-81.0); PLATELET COUNT (AUTO) 318 /CMM (150-450); RED BLOOD CELL COUNT(AUTO) 2.62 MIL/uL (4.0-5.2); WHITE BLOOD COUNT (AUTO) 12.4 K/uL (4.3-11.0)
[2020-11-09] MEDS: BLOOD SUGAR DIAGNOSTIC 1 EACH STRIP IN SCH ×4 (06:40→22:42)
--- NOTE | 2020-11-09 06:40 | NUR ---
MS RN CLOSING NOTE PATIENT A/OX3 SLEEPING IN BED. TOLERATING ROOM AIR WELL WITH NO SOB. NGT SUCTION TO L NARE WITH GREEN COLORED DRAINAGE. FLEXISEAL IN TACT. 3-WAY JACKSON CATH WITH IRRIGATION DRAINING WITH DARK RED URINE; PATENT AND INTACT. RIMMA MIDLINE KCL ON D5W @100 ML/HR. NO S/SX OF PAIN OR DISCOMFORT AT THIS TIME. SAFETY MEASURES IN PLACE: BED IN LOWEST LOCKED POSITION, SIDE RAILS UPX2, CALL LIGHT WITHIN EASY REACH, BED ALARMS ON. PATIENT IN STABLE CONDITION, WILL ENDORSE PLAN OF CARE TO ONCOMING MORNING RN.
[2020-11-09 07:12] LABS: BILIRUBIN,DIRECT 0.4 mg/dL (0.0-0.2); BILIRUBIN,TOTAL 0.7 mg/dL (0.2-1.0); CALCIUM, SERUM 8.5 mg/dL (8.5-10.1); CREATININE 1.9 mg/dL (0.6-1.3); MAGNESIUM 1.9 mg/dL (1.8-2.4); PHOSPHORUS 3.6 mg/dL (2.5-4.9); POTASSIUM 4.5 mmol/L (3.5-5.1)
--- NOTE | 2020-11-09 07:46 | NUR ---
MS RN OPENING NOTE PATIENT IS IN BED RESTING, PATIENT IS IN NO ACUTE DISTRESS. PATIENT IS ON ROOM AIR, TOLERATING WELL. PATIENT IS ON NG-TUBE, RECTAL TUBE, PATIENT HAS A JACKSON CATHETER THREE WAY IRRIGATION. SAFETY PRECAUTIONS ARE ON, BED IS LOCKED, IN THE LOWEST POSITION, WITH SIDE RAILS UP, CALL LIGHT WITHIN REACH.
[2020-11-09 08:00] VITALS: BP 150/50
[2020-11-09] MEDS: ASCORBIC ACID 500 MG TABLET PO SCH (08:58)
[2020-11-09] MEDS: ZINC SULFATE 220 MG CAPSULE PO SCH (08:58)
[2020-11-09] MEDS: DOCUSATE SODIUM 100 MG CAPSULE PO SCH ×2 (08:58→16:59)
[2020-11-09] MEDS: MULTIVITAMINS,THERAGRAN 1 UDTAB TABLET PO SCH (08:58)
[2020-11-09] MEDS: Z GUARD REMEDY 2 OZ OINT TP SCH (09:04)
[2020-11-09] MEDS: DAKINS QUARTER STRENGTH (0.125%) 480 ML BOTTLE TOP SCH (09:04)
[2020-11-09] MEDS: HYDROGEL DRESSING 90 GM TUBE TP SCH (09:04)
--- NOTE | 2020-11-09 11:05 | NUR ---
MS RN NOTE WOUND CARE PERFORMED ON THE BACK AND PATIENTS STOMACH ORDERED, PATIENT TOLERATED WELL, PATIENT STATED SHES IN PAIN, GAVE DILAUDID 1MG/1ML ORDERED.
--- NOTE | 2020-11-09 12:18 | NUR ---
MS RN NOTE PATIENT IS NPO, BLOOD SUGAR IS 104
--- NOTE | 2020-11-09 14:02 | NUR ---
MS RN NOTE PATIENT HAS BEEN NPO, DR. LEBLANC IS AWARE, WAITING FOR THE SWALLOW EVALUATION, AND REPEAT MRCP WITHOUT CONTRAST, AFTER POTENTIAL TPN WITH PICC LINE PLACEMENT.
[2020-11-09 16:00] VITALS: BP 109/71
--- NOTE | 2020-11-09 17:16 | NUR ---
MS RN NOTE PATIENT IS FEELING NAUSEOUS, HAD EMESIS PRESENT, ZOFRAN WAS ADMINISTERED PRN
--- NOTE | 2020-11-09 18:38 | NUR ---
MS RN CLOSING NOTE PATIENT IS IN BED RESTING, PATIENT IS IN NO ACUTE DISTRESS. PATIENT IS ON ROOM AIR, TOLERATING WELL. PATIENT IS ON NG-TUBE ON INTERMITTENT SUCTION, RECTAL TUBE, PATIENT HAS A JACKSON CATHETER THREE WAY IRRIGATION. SAFETY PRECAUTIONS ARE ON, BED IS LOCKED, IN THE LOWEST POSITION, WITH SIDE RAILS UP, CALL LIGHT WITHIN REACH, ENDORSE PATIENT TO MOLDER AUTOM[employer]LE [employer]PETS NURSE FOR [facility].
--- NOTE | 2020-11-09 19:30 | NUR ---
RN Opening Notes Patient is awake resting in bed. Patient's alert and oriented x4. Patient's on room air with no respiratory distress noted. Patient's on an NG tube on intermittent suction currently. Patient has a rectal tube noted. Patient has a 3-way irrigation harry catheter present. Patient has a left upper arm midline which is intact and patent. Safety measures in place: Bed locked, bed alarm on, side rails up x3, and call light within reach of the patient. Will continue to monitor the patient.
[2020-11-09 20:00] VITALS: BP 96/62
[2020-11-09] MEDS: MICAFUNGIN SODIUM 100 MG in IV NS 0.9% 100 ML IV SCH (21:23)
[2020-11-09] MEDS: SENNOSIDES 8.6 MG TABLET PO SCH (22:00)
--- NOTE | 2020-11-09 22:43 | NUR ---
RN Notes Patient's blood sugar at 2241 is 79 mg/dL. Will continue to monitor the patient.
[2020-11-10] MEDS: PIPERACILLIN /TAZOBACTAM 2.25 G in IV D5W 50 ML IV SCH ×3 (03:16→21:16)
[2020-11-10] MEDS: HYDROMORPHONE 1 MG/1 ML DISP.SYRIN IV PRN ×3 (03:25→22:49)
--- NOTE | 2020-11-10 03:25 | NUR ---
RN Notes Patient c/o of 10/10 pain. Patient was given 1 mg of Dilaudid IV. Will continue to monitor the patient.
[2020-11-10] MEDS: ONDANSETRON HCL/PF 4 MG/2 ML VIAL IV PRN (03:26)
[2020-11-10 06:25] LABS: BASOPHILS # (AUTO) 0.2 /CMM (0.0-0.2); BASOPHILS % (AUTO) 1.8 % (0.0-2.0); EOSINOPHILS % (AUTO) 1.7 % (0.0-6.0); HEMATOCRIT 26 % (33-45); HEMOGLOBIN 8.2 g/dL (11.5-14.8); LYMPHOCYTES # (AUTO) 2.1 /CMM (0.8-4.8); LYMPHOCYTES % (AUTO) 15.9 % (20.0-44.0); MEAN CORPUSCULAR HGB CONC 31 g/dl (31.0-36.0); MEAN CORPUSCULAR VOLUME 95 fL (82-100); MONOCYTES # (AUTO) 0.6 /CMM (0.1-1.30); NEUTROPHILS # (AUTO) 9.8 /CMM (1.8-8.9); NEUTROPHILS % (AUTO) 75.6 % (43.0-81.0); PLATELET COUNT (AUTO) 351 /CMM (150-450); RED BLOOD CELL COUNT(AUTO) 2.77 MIL/uL (4.0-5.2)
--- NOTE | 2020-11-10 06:39 | NUR ---
RN Notes Patient's blood sugar was 70mg/dL. Patient is currently receiving Potassium Chloride 40meq in IV D5w intravenously. Will continue to monitor the patient.
[2020-11-10 06:51] LABS: ALBUMIN 1.8 g/dL (3.4-5.0); BILIRUBIN,TOTAL 0.7 mg/dL (0.2-1.0); CALCIUM, SERUM 8.4 mg/dL (8.5-10.1); MAGNESIUM 1.7 mg/dL (1.8-2.4); PHOSPHORUS 3.3 mg/dL (2.5-4.9); POTASSIUM 4.9 mmol/L (3.5-5.1)
[2020-11-10] MEDS: BLOOD SUGAR DIAGNOSTIC 1 EACH STRIP IN SCH ×4 (07:33→22:29)
--- NOTE | 2020-11-10 07:40 | NUR ---
RN Closing Notes Patient is awake resting in bed. Patient's alert and oriented x4. Patient's on room air with no respiratory distress noted. Patient's on an NG tube on intermittent suction currently. Patient has a rectal tube noted. Patient has a 3-way irrigation harry catheter present. Patient has a left upper arm midline which is intact and patent. Safety measures in place: Bed locked, bed alarm on, side rails up x3, and call light within reach of the patient. Endorsed care to the day shift nurse.
--- NOTE | 2020-11-10 08:20 | NUR ---
MS RN OPENING NOTE PATIENT IS IN BED RESTING, A/O X4 MAURITIAN SPEAKING ONLY. PATIENT IS IN NO ACUTE DISTRESS. PATIENT IS ON ROOM AIR, TOLERATING WELL. PATIENT IS ON NG-TUBE ON INTERMITTENT SUCTION, RECTAL TUBE, PATIENT HAS A JACKSON CATHETER THREE WAY IRRIGATION. SAFETY PRECAUTIONS IN PLACED, HOB ELEVATED, BED IS LOCKED, ON LOWEST POSITION, WITH SIDE RAILS UP, CALL LIGHT WITHIN REACH. WILL CONTINUE WITH THE PLAN OF CARE.
[2020-11-10] MEDS: DOCUSATE SODIUM 100 MG CAPSULE PO SCH ×2 (09:00→17:00)
[2020-11-10] MEDS: ASCORBIC ACID 500 MG TABLET PO SCH (09:00)
[2020-11-10] MEDS: ZINC SULFATE 220 MG CAPSULE PO SCH (09:00)
[2020-11-10] MEDS: MULTIVITAMINS,THERAGRAN 1 UDTAB TABLET PO SCH (09:00)
[2020-11-10] MEDS: DAKINS QUARTER STRENGTH (0.125%) 480 ML BOTTLE TOP SCH (09:47)
[2020-11-10] MEDS: HYDROGEL DRESSING 90 GM TUBE TP SCH (09:48)
[2020-11-10] MEDS: Z GUARD REMEDY 2 OZ OINT TP SCH (09:49)
[2020-11-10] MEDS: Potassium Chloride 40 MEQ in IV D5W 1,000 ML IV SCH (09:50)
[2020-11-10] MEDS ORDERED: Magnesium 1GM/D5W 100ML PREMIX 100 ML IV SCH ×2 (11:00→16:00)
--- NOTE | 2020-11-10 11:00 | NUR ---
MS/RN NOTES MAGNESIUM SULFATE 1OOCC IV AT 11AM WAS NOT GIVEN DUE TO A DUPLICATE ORDER 14:00 CONFIRMED BY PHARMACY.
--- NOTE | 2020-11-10 19:25 | NUR ---
MS RN CLOSING NOTE PATIENT IS IN BED RESTING, A/O X4 SOUTH KOREAN SPEAKING ONLY. PATIENT IS IN NO ACUTE DISTRESS. PATIENT IS ON ROOM AIR, TOLERATING WELL. PATIENT IS ON NG-TUBE ON INTERMITTENT SUCTION, RECTAL TUBE, PATIENT HAS A JACKSON CATHETER THREE WAY IRRIGATION. SAFETY PRECAUTIONS IN PLACED, HOB ELEVATED, BED IS LOCKED, ON LOWEST POSITION, WITH SIDE RAILS UP, CALL LIGHT WITHIN REACH. WILL CONTINUE ENDORSE TO THE NEXT SHIFT TO [facility]. PLAN OF CARE.
[2020-11-10 20:00] VITALS: BP 108/68
--- NOTE | 2020-11-10 21:35 | NUR ---
missed dose for xylocaine and silver nitrate. debridement already performed.
[2020-11-10] MEDS: IV D5W 1,000 ML IV PRN (21:46)
[2020-11-10] MEDS: SENNOSIDES 8.6 MG TABLET PO SCH (21:48)
[2020-11-10] MEDS: MICAFUNGIN SODIUM 100 MG in IV NS 0.9% 100 ML IV SCH (22:29)
[2020-11-11] MEDS: PIPERACILLIN /TAZOBACTAM 2.25 G in IV D5W 50 ML IV SCH ×2 (04:44→11:31)
[2020-11-11] MEDS: HYDROMORPHONE 1 MG/1 ML DISP.SYRIN IV PRN ×4 (04:50→22:26)
[2020-11-11 06:30] LABS: BASOPHILS # (AUTO) 0.2 /CMM (0.0-0.2); BASOPHILS % (AUTO) 1.8 % (0.0-2.0); EOSINOPHILS % (AUTO) 2.1 % (0.0-6.0); HEMATOCRIT 26 % (33-45); HEMOGLOBIN 8.4 g/dL (11.5-14.8); LYMPHOCYTES # (AUTO) 1.8 /CMM (0.8-4.8); LYMPHOCYTES % (AUTO) 13.8 % (20.0-44.0); MEAN CORPUSCULAR HGB CONC 32 g/dl (31.0-36.0); MEAN CORPUSCULAR VOLUME 94 fL (82-100); MONOCYTES # (AUTO) 0.6 /CMM (0.1-1.30); MONOCYTES % (AUTO) 4.4 % (2.0-12.0); NEUTROPHILS # (AUTO) 10.3 /CMM (1.8-8.9); NEUTROPHILS % (AUTO) 77.9 % (43.0-81.0); PLATELET COUNT (AUTO) 359 /CMM (150-450); WHITE BLOOD COUNT (AUTO) 13.2 K/uL (4.3-11.0)
[2020-11-11] MEDS: BLOOD SUGAR DIAGNOSTIC 1 EACH STRIP IN SCH ×4 (07:05→22:26)
[2020-11-11 07:07] LABS: CALCIUM, SERUM 8.5 mg/dL (8.5-10.1); PHOSPHORUS 3.7 mg/dL (2.5-4.9); POTASSIUM 4.3 mmol/L (3.5-5.1)
--- NOTE | 2020-11-11 08:00 | NUR ---
RN OPENING NOTE PT AWAKE IN BED. A/O X4 AND HEBREW SPEAKING ONLY. NO COMPLAINT OF PAIN OR NAUSEA. CURRENTLY ON RA WITH NO SOB OR RESPIRATORY DISTRESS PRESENT. NO CORE ASSEMBLY SUPERVISOR PRESENT. EDEMA PRESENT. NG TUBE PRESENT ON INTERMITTENT FLUSHING. DARK FLUID SUCTIONED. NPO DUE TO DIAGNOSIS. ON BEDREST. SKIN ISSUES IDENTIFIED AND WOUND CARE TO BE GIVEN. IV PRESENT ON RIMMA AND FLUSHES WELL. LABS REVIEWED. SAFETY MEASURES IN PLACE. SIDE RAILS RAISED. BED LOWERED. CALL LIGHT WITHIN REACH. WILL CONTINUE TO MONITOR.
[2020-11-11] MEDS: MULTIVITAMINS,THERAGRAN 1 UDTAB TABLET PO SCH (08:28)
[2020-11-11] MEDS: ASCORBIC ACID 500 MG TABLET PO SCH (08:28)
[2020-11-11] MEDS: DOCUSATE SODIUM 100 MG CAPSULE PO SCH ×2 (08:28→17:00)
[2020-11-11] MEDS: ZINC SULFATE 220 MG CAPSULE PO SCH (08:28)
[2020-11-11] MEDS: HYDROGEL DRESSING 90 GM TUBE TP SCH (09:11)
[2020-11-11] MEDS: Z GUARD REMEDY 2 OZ OINT TP PRN (09:12)
[2020-11-11] MEDS: Z GUARD REMEDY 2 OZ OINT TP SCH (09:13)
[2020-11-11 09:14] VITALS: BP 116/75
[2020-11-11] MEDS: DAKINS QUARTER STRENGTH (0.125%) 480 ML BOTTLE TOP SCH (09:55)
[2020-11-11] MEDS ORDERED: MEROPENEM 500 MG in IV NS 0.9% 50 ML IV SCH (15:30)
[2020-11-11 16:00] VITALS: BP 97/64
[2020-11-11] MEDS ORDERED: ENSURE CLEAR 237 ML LIQUID (MIX BERRY) PO SCH (17:00)
--- NOTE | 2020-11-11 18:03 | NUR ---
RN NOTE PT AWAKE IN BED. A/O X4 AND GUYANESE SPEAKING ONLY. COMPLAINT OF PAIN. PAIN MEDS GIVEN. NO COMPLAINT OF NAUSEA. CURRENTLY ON RA WITH NO SOB OR RESPIRATORY DISTRESS PRESENT. NO PROTECTION CONSULTANT PRESENT. EDEMA PRESENT. NG TUBE PRESENT ON INTERMITTENT FLUSHING. DARK FLUID SUCTIONED. NPO DUE TO DIAGNOSIS. ON BEDREST. SKIN ISSUES IDENTIFIED AND WOUND CARE GIVEN. IV PRESENT ON RIMMA AND FLUSHES WELL. ROUTINE MEDS GIVEN. SAFETY MEASURES IN PLACE. SIDE RAILS RAISED. BED LOWERED. CALL LIGHT WITHIN REACH. REPORT TO BE GIVEN TO NIGHT NURSE FOR [facility].
[2020-11-11 20:00] VITALS: BP 105/66
[2020-11-11] MEDS: SENNOSIDES 8.6 MG TABLET PO SCH (22:00)
[2020-11-12] MEDS: IV D5W 1,000 ML IV PRN ×2 (02:35→23:59)
[2020-11-12] MEDS: HYDROMORPHONE 1 MG/1 ML DISP.SYRIN IV PRN ×5 (03:12→23:14)
[2020-11-12] MEDS: ONDANSETRON HCL/PF 4 MG/2 ML VIAL IV PRN (03:28)
[2020-11-12] MEDS: MEROPENEM 500 MG in IV NS 0.9% 100 ML IV SCH ×2 (03:40→16:50)
[2020-11-12 06:07] LABS: BASOPHILS # (AUTO) 0.1 /CMM (0.0-0.2); EOSINOPHILS % (AUTO) 1.9 % (0.0-6.0); HEMATOCRIT 27 % (33-45); HEMOGLOBIN 8.5 g/dL (11.5-14.8); LYMPHOCYTES # (AUTO) 2.1 /CMM (0.8-4.8); LYMPHOCYTES % (AUTO) 14.8 % (20.0-44.0); MEAN CORPUSCULAR HGB CONC 32 g/dl (31.0-36.0); MEAN CORPUSCULAR VOLUME 93 fL (82-100); MONOCYTES # (AUTO) 0.7 /CMM (0.1-1.30); MONOCYTES % (AUTO) 4.7 % (2.0-12.0); NEUTROPHILS # (AUTO) 11.3 /CMM (1.8-8.9); NEUTROPHILS % (AUTO) 77.6 % (43.0-81.0); PLATELET COUNT (AUTO) 356 /CMM (150-450); RED BLOOD CELL COUNT(AUTO) 2.87 MIL/uL (4.0-5.2); WHITE BLOOD COUNT (AUTO) 14.5 K/uL (4.3-11.0)
[2020-11-12 07:02] LABS: CALCIUM, SERUM 8.1 mg/dL (8.5-10.1); MAGNESIUM 1.8 mg/dL (1.8-2.4); PHOSPHORUS 3.9 mg/dL (2.5-4.9); POTASSIUM 3.7 mmol/L (3.5-5.1)
[2020-11-12] MEDS: BLOOD SUGAR DIAGNOSTIC 1 EACH STRIP IN SCH ×4 (07:06→22:49)
[2020-11-12 08:00] VITALS: BP 102/64
[2020-11-12] MEDS: DAKINS QUARTER STRENGTH (0.125%) 480 ML BOTTLE TOP SCH (08:00)
[2020-11-12] MEDS: Z GUARD REMEDY 2 OZ OINT TP SCH (08:00)
--- NOTE | 2020-11-12 08:00 | NUR ---
RN OPENING NOTE PT AWAKE IN BED. A/O X4 AND BOTSWANAN SPEAKING ONLY. COMPLAINT OF PAIN. PAIN MEDS GIVEN. NO COMPLAINT OF NAUSEA. CURRENTLY ON RA WITH NO SOB OR RESPIRATORY DISTRESS PRESENT. NO BRIDGES AND BUILDINGS SUPERVISOR PRESENT. EDEMA PRESENT. NG TUBE PRESENT ON INTERMITTENT FLUSHING. DARK FLUID SUCTIONED. NPO DUE TO DIAGNOSIS. POSSIBLE DIET CHANGE TO TPN OR CLEAR LIQUID TODAY. ON BEDREST. SKIN ISSUES IDENTIFIED AND WOUND CARE TO BE GIVEN. IV PRESENT ON RIMMA AND FLUSHES WELL. LABS REVIEWED. SAFETY MEASURES IN PLACE. SIDE RAILS RAISED. BED LOWERED. CALL LIGHT WITHIN REACH. WILL CONTINUE TO MONITOR.
[2020-11-12] MEDS: HYDROGEL DRESSING 90 GM TUBE TP SCH (08:01)
[2020-11-12] MEDS: DOCUSATE SODIUM 100 MG CAPSULE PO SCH ×2 (08:18→16:51)
[2020-11-12] MEDS: ASCORBIC ACID 500 MG TABLET PO SCH (08:18)
[2020-11-12] MEDS: ZINC SULFATE 220 MG CAPSULE PO SCH (08:18)
[2020-11-12] MEDS: MULTIVITAMINS,THERAGRAN 1 UDTAB TABLET PO SCH (08:18)
[2020-11-12 16:00] VITALS: BP 100/70
--- NOTE | 2020-11-12 18:13 | NUR ---
RN CLOSING NOTE PT AWAKE IN BED. A/O X4 AND ETHIOPIAN SPEAKING ONLY. NO COMPLAINT OF PAIN. NO COMPLAINT OF NAUSEA. CURRENTLY ON RA WITH NO SOB OR RESPIRATORY DISTRESS PRESENT. NO EYELET MAKER PRESENT. EDEMA PRESENT. NG TUBE PRESENT ON INTERMITTENT FLUSHING. 700 ML DARK FLUID SUCTIONED. NPO DUE TO DIAGNOSIS. ON BEDREST. SKIN ISSUES IDENTIFIED AND WOUND CARE GIVEN. IV PRESENT ON RIMMA AND FLUSHES WELL. ROUTINE MEDS GIVEN. SAFETY MEASURES IN PLACE. SIDE RAILS RAISED. BED LOWERED. CALL LIGHT WITHIN REACH. REPORT TO BE GIVEN TO NIGHT NURSE FOR [facility].
[2020-11-12 20:00] VITALS: BP 98/40
[2020-11-12 20:37] VITALS: BP 98/24
[2020-11-12 20:58] LABS: OCCULT BLOOD STOOL NEGATIVE (NEGATIVE)
[2020-11-12] MEDS: SENNOSIDES 8.6 MG TABLET PO SCH (22:00)
--- NOTE | 2020-11-12 22:51 | NUR ---
RN Notes Patient's blood sugar at 2241=88mg/dL. No insulin was given.
--- NOTE | 2020-11-12 23:14 | NUR ---
RN Notes Patient c/o 10/10 pain. Patient was given 1 mg of Dilaudid IV. Will continue to monitor the patient.
[2020-11-13] MEDS: MEROPENEM 500 MG in IV NS 0.9% 100 ML IV SCH ×2 (03:03→16:37)
[2020-11-13 05:54] LABS: BASOPHILS # (AUTO) 0.2 /CMM (0.0-0.2); BASOPHILS % (AUTO) 1.1 % (0.0-2.0); EOSINOPHILS % (AUTO) 2.3 % (0.0-6.0); HEMATOCRIT 27 % (33-45); HEMOGLOBIN 8.7 g/dL (11.5-14.8); LYMPHOCYTES # (AUTO) 2.7 /CMM (0.8-4.8); MEAN CORPUSCULAR HGB CONC 32 g/dl (31.0-36.0); MEAN CORPUSCULAR VOLUME 92 fL (82-100); MONOCYTES # (AUTO) 0.9 /CMM (0.1-1.30); MONOCYTES % (AUTO) 5.7 % (2.0-12.0); NEUTROPHILS # (AUTO) 10.9 /CMM (1.8-8.9); NEUTROPHILS % (AUTO) 72.9 % (43.0-81.0); PLATELET COUNT (AUTO) 362 /CMM (150-450); RED BLOOD CELL COUNT(AUTO) 2.95 MIL/uL (4.0-5.2)
[2020-11-13] MEDS: ONDANSETRON HCL/PF 4 MG/2 ML VIAL IV PRN ×2 (06:04→21:36)
[2020-11-13] MEDS: HYDROMORPHONE 1 MG/1 ML DISP.SYRIN IV PRN ×4 (06:04→21:35)
--- NOTE | 2020-11-13 06:04 | NUR ---
RN Notes Patient c/o 10/10 pain. Patient was given 1 mg of Dilaudid IV. Will continue to monitor the patient.
[2020-11-13 06:56] LABS: CALCIUM, SERUM 7.7 mg/dL (8.5-10.1); CREATININE 1.7 mg/dL (0.6-1.3); MAGNESIUM 1.5 mg/dL (1.8-2.4); PHOSPHORUS 3.6 mg/dL (2.5-4.9); POTASSIUM 3.4 mmol/L (3.5-5.1)
--- NOTE | 2020-11-13 07:25 | NUR ---
ms rn received on bed, awake,non verbal patient,w/ ngt connected to low suction w/ brownish output 5ml, fexiseal intact w/ blackish color output,abd wound w/ dressing noted, denies pain at this time, will monitor patient's condition.
[2020-11-13] MEDS: BLOOD SUGAR DIAGNOSTIC 1 EACH STRIP IN SCH ×4 (07:50→21:33)
[2020-11-13 08:00] VITALS: BP 100/68
[2020-11-13] MEDS: DOCUSATE SODIUM 100 MG CAPSULE PO SCH ×2 (08:43→16:38)
[2020-11-13] MEDS: Magnesium 1GM/D5W 100ML PREMIX 100 ML IV SCH ×2 (08:43→09:42)
[2020-11-13] MEDS: POTASSIUM CL. PREMIX PERIPHER. 50 ML IV SCH ×2 (08:43→09:42)
[2020-11-13] MEDS: MULTIVITAMINS,THERAGRAN 1 UDTAB TABLET PO SCH (08:43)
[2020-11-13] MEDS: ASCORBIC ACID 500 MG TABLET PO SCH (08:44)
[2020-11-13] MEDS: ZINC SULFATE 220 MG CAPSULE PO SCH (08:44)
[2020-11-13] MEDS: Z GUARD REMEDY 2 OZ OINT TP SCH (09:00)
[2020-11-13] MEDS: HYDROGEL DRESSING 90 GM TUBE TP SCH (09:00)
--- NOTE | 2020-11-13 09:00 | NUR ---
ms rn npo at this time,due meds given, iv 's at this time.
[2020-11-13] MEDS: DAKINS QUARTER STRENGTH (0.125%) 480 ML BOTTLE TOP SCH (09:36)
[2020-11-13] MEDS: Z GUARD REMEDY 2 OZ OINT TP PRN (09:37)
--- NOTE | 2020-11-13 09:45 | NUR ---
ms stephanie kinney called w/ order to clamp g tube and try to have clear liquids at this time.
--- NOTE | 2020-11-13 10:00 | NUR ---
ms rn ngt calmped and tried po clear liquids w/ speech therapy but patient begins to feel nauseous and vomit, ngt clamped release ,patient cannot tolerate po at this time, will notifiy sivan kinney.
[2020-11-13] MEDS: METOCLOPRAMIDE HCL 10 MG/2 ML VIAL IV SCH ×3 (10:28→21:33)
--- NOTE | 2020-11-13 14:36 | NUR ---
ms rn was seen by sivan kinney, was aware of patient's not tolerating po at this time.
[2020-11-13] MEDS: IV D5W 1,000 ML IV PRN (16:37)
--- NOTE | 2020-11-13 19:30 | NUR ---
MS RN OPENING NOTE RECEIVED PT IN BED. AOX4. PT IS ON RA. NO SOB NOTED. NO S/S OF DISTRESS NOTED. PT IS BED REST; PT HAS NO C/O PAIN AT THIS TIME; RESPIRATIONS EVEN AND UNLABORED, IV ACCESS NOTED IN RIMMA MIDLINE, HEMODIALYSIS CATHETER NOTED ON LEFT INTERNA L JUGULAR AND NG TUBE LIS INTACT, PATENT, AND FLUSHING WELL. FALL AND SAFETY MEASURES IN PLACE AND MAINTAINED AT ALL TIMES; BED ALARM ON, BED IN LOW AND LOCKED POSITION, HOB ELEVATED TO SEMI FOWLERS POSITION, CALL LIGHT AND TABLE WITHIN REACH, SIDE RAILS UPX2. WILL CONTINUE WITH PLAN OF CARE Addendum: 11/14/20 at 0042 by MILY LUI RN MS RN OPENING NOTE RECEIVED PT IN BED. AOX4. PT IS ON RA. NO SOB NOTED. NO S/S OF DISTRESS NOTED. PT IS BED REST; PT HAS NO C/O PAIN AT THIS TIME; RESPIRATIONS EVEN AND UNLABORED, IV ACCESS NOTED IN RIMMA MIDLINE, HEMODIALYSIS CATHETER NOTED ON LEFT INTERNA L JUGULAR, RECTAL TUBE IN PLACE AND NG TUBE LIS INTACT, PATENT, AND FLUSHING WELL. FALL AND SAFETY MEASURES IN PLACE AND MAINTAINED AT ALL TIMES; BED ALARM ON, BED IN LOW AND LOCKED POSITION, HOB ELEVATED TO SEMI FOWLERS POSITION, CALL LIGHT AND TABLE WITHIN REACH, SIDE RAILS UPX2. WILL CONTINUE WITH PLAN OF CARE Addendum: 11/14/20 at 0052 by MILY LUI RN MS RN OPENING NOTE RECEIVED PT IN BED. AOX4. PT IS ON RA. NO SOB NOTED. NO S/S OF DISTRESS NOTED. PT IS BED REST; PT HAS NO C/O PAIN AT THIS TIME; RESPIRATIONS EVEN AND UNLABORED, IV ACCESS NOTED IN RIMMA MIDLINE, HEMODIALYSIS CATHETER NOTED ON LEFT INTERNA L JUGULAR, RECTAL TUBE, JACKSON CATHETER IN PLACE AND NG TUBE LIS INTACT, PATENT, AND FLUSHING WELL. FALL AND SAFETY MEASURES IN PLACE AND MAINTAINED AT ALL TIMES; BED ALARM ON, BED IN LOW AND LOCKED POSITION, HOB ELEVATED TO SEMI FOWLERS POSITION, CALL LIGHT AND TABLE WITHIN REACH, SIDE RAILS UPX2. WILL CONTINUE WITH PLAN OF CARE
[2020-11-13 20:00] VITALS: BP 98/50
[2020-11-13] MEDS: SENNOSIDES 8.6 MG TABLET PO SCH (21:35)
--- NOTE | 2020-11-13 21:35 | NUR ---
PT C/O OF PAIN 12/31. GAVE DILAUDID 1MG/1ML IV Q4H PRN ORDERED. WILL CONTINUE TO MONITOR.
[2020-11-14] MEDS: MEROPENEM 500 MG in IV NS 0.9% 100 ML IV SCH ×2 (03:01→15:47)
[2020-11-14] MEDS: HYDROMORPHONE 1 MG/1 ML DISP.SYRIN IV PRN ×3 (03:02→16:22)
--- NOTE | 2020-11-14 03:02 | NUR ---
PT C/O OF ACHING PAIN 8/10 ON HER ABDOMEN.VS WNL, PER PT REQUEST GAVE DILAUDID 1MG/1ML IV Q4H PRN ADMINISTERED ORDERED. WILL CONTINUE TO MONITOR.
[2020-11-14] MEDS: METOCLOPRAMIDE HCL 10 MG/2 ML VIAL IV SCH ×4 (04:36→22:22)
[2020-11-14] MEDS: IV D5W 1,000 ML IV PRN ×2 (04:48→14:53)
[2020-11-14 05:58] LABS: BASOPHILS # (AUTO) 0.1 K/uL (0.0-0.2); BASOPHILS % (AUTO) 0.9 % (0.0-2.0); HEMATOCRIT 28 % (33-45); LYMPHOCYTES # (AUTO) 2.9 K/uL (0.8-4.8); LYMPHOCYTES % (AUTO) 18.6 % (20.0-44.0); MEAN CORPUSCULAR HGB CONC 32 g/dl (31.0-36.0); MEAN CORPUSCULAR VOLUME 92 fL (82-100); MONOCYTES # (AUTO) 0.9 K/uL (0.1-1.30); MONOCYTES % (AUTO) 5.9 % (2.0-12.0); NEUTROPHILS # (AUTO) 11.1 K/uL (1.8-8.9); NEUTROPHILS % (AUTO) 72.6 % (43.0-81.0); PLATELET COUNT (AUTO) 377 K/uL (150-450); RED BLOOD CELL COUNT(AUTO) 3.04 MIL/uL (4.0-5.2); WHITE BLOOD COUNT (AUTO) 15.3 K/uL (4.3-11.0)
[2020-11-14] MEDS: BLOOD SUGAR DIAGNOSTIC 1 EACH STRIP IN SCH ×4 (06:11→23:35)
--- NOTE | 2020-11-14 06:30 | NUR ---
PT RESTING COMFORTABLY IN BED AT THIS TIME. EASY TO AROUSE. NG TUBE PRESENT ON INTERMITTENT FLUSHING. JACKSON CATHETER AND RECTAL TUBE IN PLACE. ON BEDREST. IV PRESENT ON RIMMA AND FLUSHES WELL. ROUTINE MEDS GIVEN. SAFETY MEASURES IN PLACE. SIDE RAILS RAISED. BED LOWERED. CALL LIGHT WITHIN REACH. REPORT TO BE GIVEN TO NIGHT NURSE FOR [facility].
[2020-11-14 07:07] LABS: CALCIUM, SERUM 7.6 mg/dL (8.5-10.1); CREATININE 1.7 mg/dL (0.6-1.3); MAGNESIUM 2.1 mg/dL (1.8-2.4); PHOSPHORUS 3.7 mg/dL (2.5-4.9); POTASSIUM 3.4 mmol/L (3.5-5.1)
--- NOTE | 2020-11-14 07:18 | NUR ---
RN OPENING NOTE PT AWAKE IN BED. A/O X4 AND ANGUILLAN SPEAKING ONLY. COMPLAINT OF PAIN. PAIN MEDS GIVEN. NO COMPLAINT OF NAUSEA. CURRENTLY ON ROOM AIR WITH NO SOB OR RESPIRATORY DISTRESS PRESENT. NO MEDICAL EDUCATOR PRESENT. EDEMA PRESENT. NG TUBE PRESENT ON INTERMITTENT SUCTIONING. DARK FLUID SUCTIONED. MAINTAINED ON NPO DUE TO DIAGNOSIS. ON BEDREST. WITH SEVERAL SKIN ISSUES, FOR WOUND CARE/ DEBRIDEMENT TODAY C/O IMMUNOCHEMIST. IV MIDLINE PRESENT ON RIMMA PATENT AND INTACT. WITH IJ CATHETER ON THE LEFT NECK COVERED WITH TEGADERM, NO S/S OF INFECTION/ INFLAMMATION NOTED. SAFETY MEASURES IN PLACE. SIDE RAILS RAISED. BED LOWERED. CALL LIGHT WITHIN REACH. WILL CONTINUE TO MONITOR.
[2020-11-14] MEDS: MULTIVITAMINS,THERAGRAN 1 UDTAB TABLET PO SCH (09:00)
[2020-11-14] MEDS: ZINC SULFATE 220 MG CAPSULE PO SCH (09:00)
[2020-11-14] MEDS: Z GUARD REMEDY 2 OZ OINT TP SCH (09:00)
[2020-11-14] MEDS: ASCORBIC ACID 500 MG TABLET PO SCH (09:00)
[2020-11-14] MEDS: DOCUSATE SODIUM 100 MG CAPSULE PO SCH ×2 (09:00→17:00)
[2020-11-14] MEDS: DAKINS QUARTER STRENGTH (0.125%) 480 ML BOTTLE TOP SCH (09:00)
[2020-11-14] MEDS: HYDROGEL DRESSING 90 GM TUBE TP SCH (09:00)
[2020-11-14] MEDS ORDERED: POTASSIUM CL. PREMIX PERIPHER. 50 ML IV SCH (09:30)
[2020-11-14] MEDS ORDERED: LIDOCAINE 1%-EPI 1:100,000 20 ML VIAL TP ONE (11:30)
[2020-11-14 11:40] LABS: BAND % (MANUAL) 2 % (0.0-5.0); EOSINOPHILS % (MANUAL) 1 % (0-4); LYMPHOCYTES % (MANUAL) 14 % (16-48); METAMYELOCYTES % 2 % (0-0); MONOCYTES % (MANUAL) 4 % (0-11.0); MYELOCYTES % 1 % (0-0); NEUTROPHILS % (MANUAL) 76 (42-76)
--- NOTE | 2020-11-14 11:55 | NUR ---
RN NOTE PATIENT SEEN BY CONCRETE PUDDLER. WOUND DEBRIDEMENT DONE ON THE BACK. PROCEDURE TOLERATED WELL.
--- NOTE | 2020-11-14 12:30 | NUR ---
RN NOTE PATIENT NOTED TO HAVE BRIGHT RED SUCTIONED ON THE NGT, DR. LUNA NOTIFIED WITH ORDERS READ BACK AND VERIFIED TO CHECK CBC AT 1500. WILL CONTINUE TO MONITOR PATIENT.
--- NOTE | 2020-11-14 14:30 | NUR ---
RN NOTE NOTED G-TUBE SUCTION NOW COFFEE GROUND COLORED LIKE IT USED TO. PATIENT REMAINS STABLE. WILL CONTINUE TO MONITOR PATIENT.
[2020-11-14 14:56] LABS: BASOPHILS # (AUTO) 0.1 K/uL (0.0-0.2); BASOPHILS % (AUTO) 0.7 % (0.0-2.0); EOSINOPHILS % (AUTO) 0.7 % (0.0-6.0); HEMATOCRIT 24 % (33-45); HEMOGLOBIN 7.7 g/dL (11.5-14.8); LYMPHOCYTES # (AUTO) 1.9 K/uL (0.8-4.8); LYMPHOCYTES % (AUTO) 11.4 % (20.0-44.0); MEAN CORPUSCULAR HGB CONC 32 g/dl (31.0-36.0); MEAN CORPUSCULAR VOLUME 92 fL (82-100); MONOCYTES # (AUTO) 1.3 K/uL (0.1-1.30); MONOCYTES % (AUTO) 7.5 % (2.0-12.0); NEUTROPHILS # (AUTO) 13.5 K/uL (1.8-8.9); NEUTROPHILS % (AUTO) 79.7 % (43.0-81.0); PLATELET COUNT (AUTO) 351 K/uL (150-450); RED BLOOD CELL COUNT(AUTO) 2.64 MIL/uL (4.0-5.2)
[2020-11-14 15:29] LABS: BAND % (MANUAL) 4 % (0.0-5.0); EOSINOPHILS % (MANUAL) 1 % (0-4); LYMPHOCYTES % (MANUAL) 10 % (16-48); MONOCYTES % (MANUAL) 7 % (0-11.0); NEUTROPHILS % (MANUAL) 78 (42-76)
[2020-11-14] MEDS ORDERED: ERYTHROMYCIN 250 MG in IV NS 0.9% 100 ML IV SCH (17:30)
[2020-11-14] MEDS: ERYTHROMYCIN 500 MG in IV NS 0.9% 100 ML IV SCH (19:05)
--- NOTE | 2020-11-14 19:10 | NUR ---
RN CLOSING NOTE PT AWAKE IN BED. A/O X4 AND CROATIAN SPEAKING ONLY. NO COMPLAINT OF PAIN. NO COMPLAINT OF NAUSEA. CURRENTLY ON RA WITH NO SOB OR RESPIRATORY DISTRESS PRESENT. NO ENGINEERING SURVEYOR PRESENT. EDEMA PRESENT. NG TUBE PRESENT ON INTERMITTENT SUCTIONING 250 ML DARK FLUID SUCTIONED. NPO DUE TO DIAGNOSIS. ON BEDREST. SKIN ISSUES IDENTIFIED AND WOUND CARE GIVEN. IV PRESENT ON RIMMA AND FLUSHES WELL. ROUTINE MEDS GIVEN. SAFETY MEASURES IN PLACE. SIDE RAILS RAISED. BED LOWERED. CALL LIGHT WITHIN REACH. REPORT TO BE GIVEN TO NIGHT NURSE FOR [facility].
[2020-11-14 20:00] VITALS: BP 74/39
--- NOTE | 2020-11-14 20:45 | NUR ---
Active bleeding seen from NGT output. Hypotension 74/39, HR 114. A&Ox4. Received order from Dr. Borja for blood transfusion 1 unit pRBC. Consent to be obtained.
[2020-11-14] MEDS ORDERED: diphenhydrAMINE HCL 50 MG/ML VIAL IV ONE ×2 (21:00)
[2020-11-14] MEDS ORDERED: LORATADINE 10 MG TABLET PO ONE (21:00)
[2020-11-14] MEDS ORDERED: ACETAMINOPHEN 325 MG TABLET PO ONE (21:00)
--- NOTE | 2020-11-14 21:10 | NUR ---
Blood transfusion consent obtained via malaysian speaking RN waiter/waitress tourist class and witness.
[2020-11-14] MEDS: SENNOSIDES 8.6 MG TABLET PO SCH (21:21)
[2020-11-14 22:05] VITALS: BP 70/40
--- NOTE | 2020-11-14 22:30 | NUR ---
Rapid response was called d/t consistent bloody output from NGT and persistent hypotension with tachycardia. B/P mid to low 70s/40, HR 105-120. Patient still A&Ox4. Dr. Borja made aware with new order 500ml bolus of NS. Started promptly. Will start blood transfusion when ready. Is in stable enough condition to be transferred to [facility] with RN and medical equipment as ordered by Dr. Borja as well.
--- NOTE | 2020-11-14 22:55 | NUR ---
Report given to JAMESLeslie Spencer for [facility].
[2020-11-14] MEDS ORDERED: IV NS 0.9% 500 ML IV ONE (23:00)
--- NOTE | 2020-11-14 23:00 | NUR ---
Patient transferred to room 117-1 [facility]. JULIO kennedy along with COAL WASHER and charge account authorizer present and ready for arrival. Patient is in no signs of distress. A&Ox4.
--- NOTE | 2020-11-14 23:00 | NUR ---
RN NOTES RECEIVED ENDORSEMENT REPORT FROM JULIO KELLY. ALL PERTINENT INFO REGARDING PT NOTED. WILL WAIT FOR PT TO BE TRANSFERRED TO UNIT AND ADDRESS NEEDS ACCORDINGLY. BASE WAD OPERATOR ADJUSTER MADE AWARE.
--- NOTE | 2020-11-14 23:20 | NUR ---
RN NOTES RECEIVED PT FROM 3W VIA BED ACCOMPANIED BY 2RN STAFF A FROM 3W, PT IS AOX4; GABONESE SPEAKING. PATIENT IN NO S/SX OF ACUTE DISTRESS AT THIS TIME. NO SOB NOTED. PATIENT'S BREATHING IS EVEN AND UNLABORED. PATIENT IS ON ROOM AIR WITH 02 SAT PF 98%. PATIENT ON TELE MONITORING READING SINUS TACHY HR IS @108. PT IS CURRENTLY ON NPO. PT HAS NGT @ R NARE CONNECTED TO LOW INTERMITTENT SUCTION DRAINING BLACKISH BLOOD OUTPUT. NOTED IV SITE ON L UA MIDLINE#18 ; PATENT, INTACT AND FLUSHING WELL; NO S/S OF INFECTION OR INFILTRATION. PT ALSO HAS L IJ CATH SECURED AND INTACT NO SIGNS OF INFECTION. JACKSON CATH IN PLACE, MODERATE URINE OUTPUT NOTED. WITH FLEXISEAL SECURED AND INTACT DRAINING MODERATE AMOUNT OF OUTPUT. WITH DVT PUMP ON PT ALSO HAS ON SPECIALTY MATRESS. SAFETY MEASURES HAVE BEEN PROVIDED AND IMPLEMENTED. PATIENT BED ALARM IS ON. HEAD OF BED ELEVATED. BED IS LOCKED, IN LOWEST POSITION AND SIDE RAILS UP. CALL LIGHT WITHIN REACH OF THE PATIENT. APPLICABLE ISOLATION PRECAUTIONS IN PLACE. WILL CONTINUE TO MONITOR AND REASSESS FOR ANY CHANGES AND WILL CARRY OUT ANY ONGOING AND ACTIVE MD ORDER.
[2020-11-15] VITALS (82 sets, daily range): BP systolic 70–142; BP diastolic 30–103
[2020-11-15] MEDS ORDERED: IV NS 0.9% 500 ML IV ONE ×3 (00:30→03:00)
--- NOTE | 2020-11-15 00:54 | NUR ---
RN NOTES STARTED 1 BAG OF PRBC ORDERED. INITIAL VITAL SIGNS TAKEN AND RECORDED. INFUSED PER PROTOCOL. WILL CONTINUE TO MONITOR AND ASSESS FOR ANY BLOOD TRANSFUSION REACTION AND ADDRESS ACCORDINGLY. WEAPONS OFFICER [employer] WELL AWARE.
[2020-11-15] MEDS: IV NS 0.9% 1,000 ML IV PRN ×3 (02:00→19:01)
--- NOTE | 2020-11-15 03:05 | NUR ---
RN NOTES ENDED BLOOD TRANSFUSION @0300, VITAL SIGNS TAKEN AND RECORDED; NO BLOOD TRANSFUSION REACTION NOTED. WILL CONTINUE TO MONITOR AND ASSESS FOR ANY BLOOD TRANSFUSION REACTION POST PROCEDURE. SHEET PILE DRIVER OPERATOR MADE AWARE. BLOOD PRESSURE IS STILL LOW; BP IS 81/50 HR 102 RR: 20. MADE AWARE. DR. CANCHOLA ORDERED BOLUS OF NS 500ML; WILL CARRY OUT ORDERED. SHEET PILE DRIVER OPERATOR MADE AWARE.
--- NOTE | 2020-11-15 04:00 | NUR ---
RN NOTES PATIENT REMAINS IN NO ACUTE RESPIRATORY DISTRESS AT THIS TIME, NO CHANGES TO CONDITION/STATUS, PT'S BP IS STILL LOW;MD WELL AWARE. AM PATIENT CARE DONE. JACQUARD LOOM FIXER WELL AWARE. WILL TRANSFER TO ICU ORDERED
--- NOTE | 2020-11-15 04:00 | NUR ---
RN NOTES BRITTA MENDEZ PROVIDED ORDERS TO TRANSFER PT TO ICU AND TO START PRESSOR; LEVOPHED. STRAW HAT MACHINE OPERATOR MADE AWARE. WILL CARRY OUT ORDERED.
[2020-11-15] MEDS: MEROPENEM 500 MG in IV NS 0.9% 100 ML IV SCH ×2 (04:14→15:18)
[2020-11-15] MEDS: METOCLOPRAMIDE HCL 10 MG/2 ML VIAL IV SCH ×4 (04:14→22:18)
[2020-11-15] MEDS ORDERED: NOREPINEPHRINE 8 MG in IV NS 0.9% 242 ML IV PRN ×2 (04:30→05:30)
--- NOTE | 2020-11-15 04:45 | NUR ---
RN NOTES PATIENT TRANSFERRED TO ICU ROOM #254 VIA ACLS PROTOCOL. OIL ANALYST MADE AWARE.
[2020-11-15] MEDS ORDERED: NOREPINEPHRINE 8MG/250ML RTU 250 ML IV ONE (04:47)
--- NOTE | 2020-11-15 05:00 | NUR ---
RN NOTES STARTED LEVOPHED/NOREPINEPHRINE @ DOSE RATE OF 0.1MCG/KG/MIN @17.605MLS/HR. WILL CONTINUE TO MONITOR AND TITRATE PER PROTOCOL. MEDICAL NURSE WELL AWARE.
[2020-11-15] MEDS: NOREPINEPHRINE 8 MG in IV NS 0.9% 242 ML IV PRN (05:45)
[2020-11-15 06:25] LABS: BASOPHILS # (AUTO) 0.1 K/uL (0.0-0.2); BASOPHILS % (AUTO) 0.3 % (0.0-2.0); EOSINOPHILS % (AUTO) 0.6 % (0.0-6.0); HEMATOCRIT 29 % (33-45); HEMOGLOBIN 9.5 g/dL (11.5-14.8); LYMPHOCYTES # (AUTO) 7.1 K/uL (0.8-4.8); LYMPHOCYTES % (AUTO) 30.1 % (20.0-44.0); MEAN CORPUSCULAR HGB CONC 32 g/dl (31.0-36.0); MEAN CORPUSCULAR VOLUME 90 fL (82-100); MONOCYTES # (AUTO) 1.6 K/uL (0.1-1.30); MONOCYTES % (AUTO) 6.9 % (2.0-12.0); NEUTROPHILS # (AUTO) 14.6 K/uL (1.8-8.9); NEUTROPHILS % (AUTO) 62.1 % (43.0-81.0); PLATELET COUNT (AUTO) 387 K/uL (150-450); RED BLOOD CELL COUNT(AUTO) 3.26 MIL/uL (4.0-5.2); WHITE BLOOD COUNT (AUTO) 23.6 K/uL (4.3-11.0)
[2020-11-15 06:46] LABS: CALCIUM, SERUM 7.4 mg/dL (8.5-10.1); MAGNESIUM 1.8 mg/dL (1.8-2.4); PHOSPHORUS 3.9 mg/dL (2.5-4.9); POTASSIUM 3.6 mmol/L (3.5-5.1)
[2020-11-15] MEDS: ONDANSETRON HCL/PF 4 MG/2 ML VIAL IV PRN (06:50)
--- NOTE | 2020-11-15 07:03 | NUR ---
RN CLOSING NOTE: PATIENT REMAINS IN ROOM IN NO SIGNS OF RESPIRATORY DISTRESS AT THE TIME OF ENDORSEMENT, PATIENT STILL ON ROOM AIR ;TOLERATING WELL SATURATING @ 99% SP02. WITH ONGOING PRESSOR OF LEVOPHED WITH DOSE RATE OF 0.07MCG/KG/MIN, MONITORED AND TITRATED PER PROTOCOL. SAFETY MEASURES IMPLEMENTED, BED IN LOWEST POSITION, LOCKED, SIDE RAILS UP, CALL LIGHT WITHIN REACH. ALL NEEDS AND ORDERS ADDRESSED DURING THE SHIFT. IV ACCESS MAINTAINED INTACT, SECURED AND FLUSHING WELL. ALL DUE MEDS GIVEN ORDERED & SCHEDULED; PATIENT TOLERATED WELL. PATIENT KEPT CLEAN AND COMFORTABLE WITHIN THE SHIFT, WOUND CARE DONE ORDERED. PATIENT ENDORSED TO INCOMING SHIFT RN WITH STABLE VITAL SIGN AND FOR CONTINUITY OF CARE.
--- NOTE | 2020-11-15 07:25 | NUR ---
RN OPENING NOTES RECEIVED PATIENT AWAKE, ALERT AND ORIENTED. ST ONE BEDSIDE MONITOR. DOESNT APPEAR TO BE IN ANY DISTRESS AND SATURATING 95% ON RA. RIMMA MIDLINE WITH LEVO AT 0.07MCG/KG/HR AND N/S AT 125ML/HR. LEFT IJ CATHETER NOTED. NG LEFT NARE CONNECTED TO LOW SUCTION. WOUND DRESSING AT ABDOMEN SITED. FLEXI SEAL AND JACKSON NOTED. SAFETY CHECKS IN PLACE. WILL CONTINUE TO MONITOR.
[2020-11-15] MEDS: ERYTHROMYCIN 500 MG in IV NS 0.9% 100 ML IV SCH ×3 (07:50→17:38)
[2020-11-15] MEDS: BLOOD SUGAR DIAGNOSTIC 1 EACH STRIP IN SCH ×4 (08:24→22:18)
[2020-11-15] MEDS: ASCORBIC ACID 500 MG TABLET PO SCH (09:00)
[2020-11-15] MEDS: DOCUSATE SODIUM 100 MG CAPSULE PO SCH ×2 (09:00→17:00)
[2020-11-15] MEDS: MULTIVITAMINS,THERAGRAN 1 UDTAB TABLET PO SCH (09:00)
[2020-11-15] MEDS: ZINC SULFATE 220 MG CAPSULE PO SCH (09:00)
[2020-11-15] MEDS: DAKINS QUARTER STRENGTH (0.125%) 480 ML BOTTLE TOP SCH (09:17)
[2020-11-15] MEDS: Z GUARD REMEDY 2 OZ OINT TP SCH (09:18)
[2020-11-15] MEDS: HYDROGEL DRESSING 90 GM TUBE TP SCH (09:18)
[2020-11-15] MEDS: HYDROMORPHONE 1 MG/1 ML DISP.SYRIN IV PRN ×3 (10:09→19:20)
[2020-11-15] MEDS: VANCOMYCIN 1 GM in IV D5W 250ml IV SCH (12:03)
[2020-11-15 12:26] LABS: BAND % (MANUAL) 3 % (0.0-5.0); LYMPHOCYTES % (MANUAL) 26 % (16-48); MONOCYTES % (MANUAL) 6 % (0-11.0); MYELOCYTES % 1 % (0-0); NEUTROPHILS % (MANUAL) 64 (42-76)
--- NOTE | 2020-11-15 12:30 | NUR ---
RN NOTE LEFT IJ CATHETER REMOVED BY DR CASTELAN. NO BLEEDING NO COMPLICATIONS OBSERVED.
[2020-11-15] MEDS: FLUCONAZOLE IN NS 100 MG in PREMIX 1 EA IV SCH (14:51)
--- NOTE | 2020-11-15 17:00 | NUR ---
RN NOTE 24 HOUR NO-LINE HOLIDAY IMPOSED IN LIGHT OF RECENT CULTURES TAKEN FROM PREVIOUS CENTRAL CATHETER TIP. TPN TO COMMENCE ONCE NEW PICC IS PLACED.
--- NOTE | 2020-11-15 18:20 | NUR ---
RN CLOSING NOTES PATIENT REMAINS AWAKE, ALERT AND ORIENTED. ST 106 ON BEDSIDE MONITOR. DOESNT APPEAR TO BE IN ANY DISTRESS AND SATURATING 97% ON RA. RIMMA MIDLINE WITH LEVO AT 0.06MCG/KG/HR, N/S AT 125ML/HR, AND CHASITY IN PROGRESS. NG LEFT NARE CONNECTED TO LOW INTERMITTENT SUCTION. WOUND DRESSING AT ABDOMEN, BACK, AND SACRUM CHANGED. FLEXI SEAL DRAINED 100MLS AND JACKSON EMPTIED 250MLS. SAFETY CHECKS IN PLACE. WILL ENDORSE TO NIGHT RN FOR CONTINUITY OF CARE.
--- NOTE | 2020-11-15 19:30 | NUR ---
RADIOTELEGRAPH OPERATOR RCD PT W/DX SEPSIS. UTI. PT IS A/O x2. ST ON MONITOR. FLEXI SEAL IN PLACE DRAINING LIQUID GREEN STOOL. JACKSON CATH IN PLACE DRAINING BLOOD TINGED URINE. NPO NG L NARE TO LIS. MULTIPLE SKIN ISSUES WITH ORDERED DRESSINGS IN PLACE. RIMMA MIDLINE W/NS @ 125 ML/HR AND LEVOPHED AT 0.06 MCG/KG/MIN. PT DENIES PAIN AT THIS TIME.
[2020-11-15] MEDS: SENNOSIDES 8.6 MG TABLET PO SCH (21:35)
--- NOTE | 2020-11-15 22:44 | NUR ---
BIOFUELS PLANT MANAGER BLOOD GLUCOSE 145 NO INSULIN SCALE. CONTINUE TO MONITOR.
[2020-11-16] VITALS (95 sets, daily range): BP systolic 85–129; BP diastolic 43–69
--- NOTE | 2020-11-16 | NUR ---
VP PUBLISHER DEVELOPMENT DECREASED LEVOPHED TO 0.04 MCG/KG/MIN FOR BP 115/65
[2020-11-16] MEDS: NOREPINEPHRINE 8 MG in IV NS 0.9% 242 ML IV PRN (01:16)
[2020-11-16] MEDS: IV NS 0.9% 1,000 ML IV PRN (01:51)
[2020-11-16] MEDS: MEROPENEM 500 MG in IV NS 0.9% 100 ML IV SCH ×2 (03:00→17:08)
[2020-11-16] MEDS: METOCLOPRAMIDE HCL 10 MG/2 ML VIAL IV SCH ×4 (03:54→22:04)
[2020-11-16] MEDS: HYDROMORPHONE 1 MG/1 ML DISP.SYRIN IV PRN ×4 (04:33→22:17)
--- NOTE | 2020-11-16 04:33 | NUR ---
EMAIL DESIGNER AFTER COMPLETE BED BATH PT FELT NAUSEA AND PAIN TO ABDOMINAL AREA. MEDICATED NEEDED.
--- NOTE | 2020-11-16 05:00 | NUR ---
LOADER MAGAZINE GRINDER DECREASED LEVOPHED TO 0.02 MCG/KG/MIN FOR BP 129/66
[2020-11-16 05:27] LABS: BASOPHILS # (AUTO) 0.1 K/uL (0.0-0.2); BASOPHILS % (AUTO) 0.8 % (0.0-2.0); EOSINOPHILS % (AUTO) 0.6 % (0.0-6.0); LYMPHOCYTES # (AUTO) 2.1 K/uL (0.8-4.8); LYMPHOCYTES % (AUTO) 15.6 % (20.0-44.0); MEAN CORPUSCULAR HGB CONC 33 g/dl (31.0-36.0); MEAN CORPUSCULAR VOLUME 90 fL (82-100); MONOCYTES # (AUTO) 1.2 K/uL (0.1-1.30); MONOCYTES % (AUTO) 9.4 % (2.0-12.0); NEUTROPHILS # (AUTO) 9.7 K/uL (1.8-8.9); NEUTROPHILS % (AUTO) 73.6 % (43.0-81.0); PLATELET COUNT (AUTO) 314 K/uL (150-450); WHITE BLOOD COUNT (AUTO) 13.1 K/uL (4.3-11.0)
[2020-11-16 05:47] LABS: HEMATOCRIT 20 % (33-45); HEMOGLOBIN 6.5 g/dL (11.5-14.8)
[2020-11-16] MEDS: VANCOMYCIN 1 GM in IV D5W 250ml IV SCH (06:00)
[2020-11-16 06:17] LABS: LYMPHOCYTES % (MANUAL) 16 % (16-48); METAMYELOCYTES % 2 % (0-0); MONOCYTES % (MANUAL) 4 % (0-11.0); MYELOCYTES % 3 % (0-0); NEUTROPHILS % (MANUAL) 75 (42-76)
--- NOTE | 2020-11-16 06:19 | NUR ---
NEW VEHICLE SALES CONSULTANTPHARMACY INNOVATION ASSISTANT NURSE ED RCD CRITICAL VALUE HH 6.5. HE ATTEMPTED TO REACH DR CANCHOLA AND WAS UNABLE TO. SECOND CALL PLACED TO EXCHANGE AT THIS TIME.
[2020-11-16 06:20] LABS: CALCIUM, SERUM 7.2 mg/dL (8.5-10.1); CREATININE 1.7 mg/dL (0.6-1.3); POTASSIUM 3.3 mmol/L (3.5-5.1)
--- NOTE | 2020-11-16 07:30 | NUR ---
OIL WELL PERFORATOR OPERATOR OPENING NOTE RECEIVED REPORT FROM PM NURSE.PT WITH /DX SEPSIS. UTI. PT IS A/O x2. ST ON MONITOR. FLEXI SEAL IN PLACE DRAINING LIQUID GREEN STOOL. JACKSON CATH IN PLACE DRAINING BLOOD TINGED URINE. NPO NG L NARE TO LOW INTERMITTENT SUCTION WITH BROWNISH DISCHARGE. MULTIPLE SKIN ISSUES WITH ORDERED DRESSINGS IN PLACE. RIMMA MIDLINE W/NS @ 125 ML/HR AND LEVOPHED AT 0.02 MCG/KG/MIN. PT DENIES PAIN AT THIS TIME.SAFETY AND ASPIRATION MEASURES IN PLACE.BED IS LOW AND IN LOCKED POSITION .CALL LIGHT IN REACH.BED ALARM IS ON.SRX3.WILL CONTINUE TO MONITOR.
[2020-11-16] MEDS: IV D5 LR 1,000 ML IV PRN (07:55)
[2020-11-16] MEDS: ERYTHROMYCIN 500 MG in IV NS 0.9% 100 ML IV SCH ×3 (07:56→17:20)
[2020-11-16] MEDS: ASCORBIC ACID 500 MG TABLET PO SCH (08:09)
[2020-11-16] MEDS: DOCUSATE SODIUM 100 MG CAPSULE PO SCH ×2 (08:09→17:00)
[2020-11-16] MEDS: MULTIVITAMINS,THERAGRAN 1 UDTAB TABLET PO SCH (08:09)
[2020-11-16] MEDS: BLOOD SUGAR DIAGNOSTIC 1 EACH STRIP IN SCH ×4 (08:09→21:51)
[2020-11-16] MEDS: ZINC SULFATE 220 MG CAPSULE PO SCH (08:09)
[2020-11-16] MEDS: HYDROGEL DRESSING 90 GM TUBE TP SCH (09:49)
[2020-11-16] MEDS: Z GUARD REMEDY 2 OZ OINT TP SCH (09:49)
[2020-11-16] MEDS: DAKINS QUARTER STRENGTH (0.125%) 480 ML BOTTLE TOP SCH (09:50)
--- NOTE | 2020-11-16 11:24 | NUR ---
MIRROR SILVERER NOTE RECEIVED CALL FROM LAB,TOLD THAT MISCELLANEOUS ORDER FOR BETA D GLUCON IS ORDER FUNGI TELL SERUM.SHE ILL PLACE THE ORDER AND TO CANCELL MISCELLANEOUS ORDER.
[2020-11-16] MEDS ORDERED: PANTOPRAZOLE 80 MG in IV NS 0.9% 100 ML IV ONE (12:00)
[2020-11-16 12:11] LABS: BILIRUBIN,DIRECT 0.3 mg/dL (0.0-0.2); BILIRUBIN,TOTAL 0.6 mg/dL (0.2-1.0); TOTAL PROTEIN, SERUM 4.2 g/dL (6.4-8.2)
[2020-11-16 12:16] LABS: ALBUMIN 1.3 g/dL (3.4-5.0)
[2020-11-16] MEDS: PANTOPRAZOLE 80 MG in IV NS 0.9% 500 ML IV PRN ×2 (12:51→22:50)
[2020-11-16] MEDS: FLUCONAZOLE IN NS 100 MG in PREMIX 1 EA IV SCH (13:49)
--- NOTE | 2020-11-16 13:49 | NUR ---
MACHINE II ENGRAVER NOTE SEEN BY CELIA.AYALA,CBC ORDERED S/P BLOOD TRANSFUSION,RECEIVED NEW ORDER FOR GI CONSULT. MADE AWARE.S/P PICC LINE PLACEMENT KEVEN.WILL CONTINUE TO MONITOR.
[2020-11-16 14:32] LABS: BASOPHILS # (AUTO) 0.1 K/uL (0.0-0.2); BASOPHILS % (AUTO) 0.6 % (0.0-2.0); HEMATOCRIT 22 % (33-45); HEMOGLOBIN 7.2 g/dL (11.5-14.8); LYMPHOCYTES # (AUTO) 1.7 K/uL (0.8-4.8); LYMPHOCYTES % (AUTO) 14.1 % (20.0-44.0); MEAN CORPUSCULAR HGB CONC 33 g/dl (31.0-36.0); MEAN CORPUSCULAR VOLUME 91 fL (82-100); MONOCYTES # (AUTO) 1.2 K/uL (0.1-1.30); MONOCYTES % (AUTO) 10.3 % (2.0-12.0); NEUTROPHILS # (AUTO) 8.9 K/uL (1.8-8.9); PLATELET COUNT (AUTO) 277 K/uL (150-450); RED BLOOD CELL COUNT(AUTO) 2.41 MIL/uL (4.0-5.2)
--- NOTE | 2020-11-16 15:00 | NUR ---
ORIENTAL MEDICINE PRACTITIONER NOTE UPDATED ABOUT PATIENT CONDITION WITH LABS RECENT H/H ,ALBUMIN LEVEL.WILL CONTINUE TO MONITOR.
[2020-11-16] MEDS: POTASSIUM CL. PREMIX PERIPHER. 50 ML IV SCH ×2 (15:02→16:18)
[2020-11-16 15:09] LABS: BAND % (MANUAL) 1 % (0.0-5.0); LYMPHOCYTES % (MANUAL) 15 % (16-48); MONOCYTES % (MANUAL) 5 % (0-11.0); NEUTROPHILS % (MANUAL) 79 (42-76)
--- NOTE | 2020-11-16 15:11 | NUR ---
COMPLIANCE MGR NOTE MADE AWARE ABOUT H/H 7.07/15.NEW ORDER FOR CBC @ 1999 AND MAY TRANSFUSE 1 PRBC IF Hgb LESS THAN 7.
--- NOTE | 2020-11-16 18:19 | NUR ---
WASHER CARCASS CLOSING NOTE PT WITH /DX SEPSIS. UTI. PT IS A/O x2. ST ,SR ON MONITOR. FLEXI SEAL IN PLACE DRAINING LIQUID GREEN STOOL. JACKSON CATH IN PLACE DRAINING BLOOD TINGED URINE. NPO NG L NARE TO LOW INTERMITTENT SUCTION WITH BROWNISH DISCHARGE. MULTIPLE SKIN ISSUES WITH ORDERED DRESSINGS IN PLACE. RIMMA MIDLINE,KEVEN PICC WITH LEVOPHED AT 0.02 MCG/KG/MIN.SAFETY AND ASPIRATION MEASURES IN PLACE.BED IS LOW AND IN LOCKED POSITION .CALL LIGHT IN REACH.BED ALARM IS ON.SRX3.WILL CONTINUE TO MONITOR.
--- NOTE | 2020-11-16 19:30 | NUR ---
AIR REDUCTION EQUIPMENT OPERATOR NOTE RECEIVED A/O x2 FRISIAN SPEAKING. ON MONITOR SR/ST. FLEXI SEAL IN PLACE DRAINING LIQUID GREEN STOOL. JACKSON CATH IN PLACE DRAINING BLOOD TINGED URINE BU GRAVITY. PT CURRENTLY NPO NG TO LT NARE ON LOW INTERMITTENT SUCTION WITH BROWNISH DISCHARGE. RIMMA MIDLINE PATENT INTACT FLUSHING WELL. KEVEN PICC WITH LEVOPHED AT 0.02 MCG/KG/MIN. SAFETY AND ASPIRATION MEASURES IN PLACE. BED LOCKED AND IN THE LOWEST POSITION . CALL LIGHT IN REACH. SRX3.WILL CONTINUE TO MONITOR PT.
[2020-11-16 20:07] LABS: BASOPHILS # (AUTO) 0.1 K/uL (0.0-0.2); BASOPHILS % (AUTO) 0.6 % (0.0-2.0); EOSINOPHILS % (AUTO) 1.2 % (0.0-6.0); HEMATOCRIT 22 % (33-45); HEMOGLOBIN 7.2 g/dL (11.5-14.8); LYMPHOCYTES # (AUTO) 1.7 K/uL (0.8-4.8); LYMPHOCYTES % (AUTO) 12.9 % (20.0-44.0); MEAN CORPUSCULAR HGB CONC 33 g/dl (31.0-36.0); MEAN CORPUSCULAR VOLUME 91 fL (82-100); MONOCYTES # (AUTO) 1.2 K/uL (0.1-1.30); MONOCYTES % (AUTO) 9.2 % (2.0-12.0); NEUTROPHILS # (AUTO) 9.9 K/uL (1.8-8.9); NEUTROPHILS % (AUTO) 76.1 % (43.0-81.0); PLATELET COUNT (AUTO) 273 K/uL (150-450); RED BLOOD CELL COUNT(AUTO) 2.41 MIL/uL (4.0-5.2)
[2020-11-16 20:32] LABS: BAND % (MANUAL) 1 % (0.0-5.0); EOSINOPHILS % (MANUAL) 1 % (0-4); LYMPHOCYTES % (MANUAL) 13 % (16-48); MONOCYTES % (MANUAL) 9 % (0-11.0); NEUTROPHILS % (MANUAL) 75 (42-76); REACTIVE LYMPHOCYTES 1 % (0-0)
[2020-11-16] MEDS: SENNOSIDES 8.6 MG TABLET PO SCH (21:50)
--- NOTE | 2020-11-16 22:00 | NUR ---
RN NOTE JACKSON FLUSHED WITH 40 ML OF NS PER MD ORDER.
[2020-11-16] MEDS: ONDANSETRON HCL/PF 4 MG/2 ML VIAL IV PRN (22:13)
[2020-11-17] VITALS (71 sets, daily range): BP systolic 81–129; BP diastolic 45–72
[2020-11-17] MEDS: VANCOMYCIN 1 GM in IV D5W 250ml IV SCH ×2 (00:19→17:58)
--- NOTE | 2020-11-17 02:00 | NUR ---
RN NOTE JACKSON CATH FLUSHED WITH 40 ML OF NS.
[2020-11-17] MEDS: IV D5 LR 1,000 ML IV PRN ×2 (03:00→20:11)
[2020-11-17] MEDS: HYDROMORPHONE 1 MG/1 ML DISP.SYRIN IV PRN ×4 (03:04→16:58)
[2020-11-17] MEDS: MEROPENEM 500 MG in IV NS 0.9% 100 ML IV SCH ×2 (04:00→15:51)
[2020-11-17] MEDS: METOCLOPRAMIDE HCL 10 MG/2 ML VIAL IV SCH ×4 (04:09→22:13)
[2020-11-17 05:57] LABS: CALCIUM, SERUM 7.6 mg/dL (8.5-10.1); CREATININE 1.4 mg/dL (0.6-1.3); POTASSIUM 3.2 mmol/L (3.5-5.1)
[2020-11-17] MEDS ORDERED: PANTOPRAZOLE 80 MG in IV NS 0.9% 500 ML IV SCH ×2 (06:30→09:00)
--- NOTE | 2020-11-17 07:26 | NUR ---
RN NOTE PT ENDORSED TO AM RN FOR MERCED.
[2020-11-17] MEDS: ERYTHROMYCIN 500 MG in IV NS 0.9% 100 ML IV SCH ×3 (07:53→17:04)
[2020-11-17] MEDS: BLOOD SUGAR DIAGNOSTIC 1 EACH STRIP IN SCH ×4 (07:55→22:13)
[2020-11-17] MEDS: DOCUSATE SODIUM 100 MG CAPSULE PO SCH ×2 (08:00→16:59)
[2020-11-17] MEDS: ASCORBIC ACID 500 MG TABLET PO SCH (08:00)
[2020-11-17] MEDS: MULTIVITAMINS,THERAGRAN 1 UDTAB TABLET PO SCH (08:00)
[2020-11-17] MEDS: DAKINS QUARTER STRENGTH (0.125%) 480 ML BOTTLE TOP SCH (08:00)
[2020-11-17] MEDS: ZINC SULFATE 220 MG CAPSULE PO SCH (08:00)
[2020-11-17] MEDS: Z GUARD REMEDY 2 OZ OINT TP SCH (08:01)
[2020-11-17] MEDS: HYDROGEL DRESSING 90 GM TUBE TP SCH (08:01)
[2020-11-17 09:15] LABS: BASOPHILS # (AUTO) 0.1 K/uL (0.0-0.2); BASOPHILS % (AUTO) 0.7 % (0.0-2.0); EOSINOPHILS % (AUTO) 1.5 % (0.0-6.0); HEMATOCRIT 22 % (33-45); HEMOGLOBIN 7.2 g/dL (11.5-14.8); LYMPHOCYTES # (AUTO) 1.6 K/uL (0.8-4.8); MEAN CORPUSCULAR HGB CONC 33 g/dl (31.0-36.0); MEAN CORPUSCULAR VOLUME 92 fL (82-100); MONOCYTES # (AUTO) 1.2 K/uL (0.1-1.30); MONOCYTES % (AUTO) 9.6 % (2.0-12.0); NEUTROPHILS # (AUTO) 9.2 K/uL (1.8-8.9); NEUTROPHILS % (AUTO) 75.2 % (43.0-81.0); PLATELET COUNT (AUTO) 277 K/uL (150-450); RED BLOOD CELL COUNT(AUTO) 2.39 MIL/uL (4.0-5.2); WHITE BLOOD COUNT (AUTO) 12.3 K/uL (4.3-11.0)
[2020-11-17] MEDS ORDERED: HYDROMORPHONE 1 MG/1 ML DISP.SYRIN IV ONE (09:30)
[2020-11-17] MEDS: PANTOPRAZOLE 80 MG in IV NS 0.9% 500 ML IV SCH ×2 (09:36→18:54)
[2020-11-17] MEDS: POTASSIUM CL. PREMIX PERIPHER. 50 ML IV SCH ×4 (09:50→14:56)
[2020-11-17] MEDS: ONDANSETRON HCL/PF 4 MG/2 ML VIAL IV PRN (12:10)
--- NOTE | 2020-11-17 12:37 | NUR ---
AM RN NOTE PT RECEIVED FROM TOI RN, BEDSIDE REPORT COMPLETED. PT AWAKE AND ABLE TO MOUTH WORDS AND NOD TO QUESTIONS. PT C/O PAIN 03/02. PAIN MEDICATION GIVEN PER ORDERS AND PHYSICIAN TEAM NOTIFIED DURING THEIR ROUNDS OF PT CONTINUING TO C/O PAIN. VSS ON RA, LEVO TITRATED OFF AT 1000. NG TO LIS THEN CLAMPED PER MD ORDERS AT 1000, HOWEVER PT BEGAN HAVING DRY HEAVES AND C/O NAUSEA AT 1200 AND ZOFRAN WAS GIVEN WITH NG TO LIS STARTED AGAIN. DRESSINGS PER ORDERS. JACKSON TO DD, RED OUTPUT WITH CLOTS. JACKSON FLUSHED WITH 40ML STERILE NS PER ORDERS Q4H. REPLACING KCL 40MEQ PER ORDERS. CONTINUING TO MONITOR.
[2020-11-17] MEDS: FLUCONAZOLE IN NS 100 MG in PREMIX 1 EA IV SCH (13:02)
[2020-11-17] MEDS ORDERED: IV NS 0.9% 250 ML IV PRN (20:00)
[2020-11-17] MEDS: SENNOSIDES 8.6 MG TABLET PO SCH (22:00)
--- NOTE | 2020-11-17 22:00 | NUR ---
GEOSPATIAL EXTRACTOR ANALYSIS RENDERED WOUND CARE AND BED BATH. PT TOLERATED WELL.
[2020-11-18] VITALS (43 sets, daily range): BP systolic 102–139; BP diastolic 49–99
[2020-11-18] MEDS: METOCLOPRAMIDE HCL 10 MG/2 ML VIAL IV SCH ×4 (04:10→22:30)
[2020-11-18] MEDS: MEROPENEM 500 MG in IV NS 0.9% 100 ML IV SCH (04:10)
[2020-11-18] MEDS: PANTOPRAZOLE 80 MG in IV NS 0.9% 500 ML IV SCH (04:45)
[2020-11-18 05:08] LABS: BASOPHILS # (AUTO) 0.1 K/uL (0.0-0.2); BASOPHILS % (AUTO) 0.5 % (0.0-2.0); EOSINOPHILS % (AUTO) 1.3 % (0.0-6.0); HEMATOCRIT 21 % (33-45); LYMPHOCYTES # (AUTO) 1.8 K/uL (0.8-4.8); LYMPHOCYTES % (AUTO) 15.7 % (20.0-44.0); MEAN CORPUSCULAR HGB CONC 32 g/dl (31.0-36.0); MEAN CORPUSCULAR VOLUME 93 fL (82-100); MONOCYTES # (AUTO) 1.1 K/uL (0.1-1.30); MONOCYTES % (AUTO) 9.6 % (2.0-12.0); NEUTROPHILS # (AUTO) 8.4 K/uL (1.8-8.9); NEUTROPHILS % (AUTO) 72.9 % (43.0-81.0); PLATELET COUNT (AUTO) 279 K/uL (150-450); WHITE BLOOD COUNT (AUTO) 11.5 K/uL (4.3-11.0)
[2020-11-18 05:15] LABS: HEMOGLOBIN 6.9 g/dL (11.5-14.8)
[2020-11-18 05:26] LABS: CALCIUM, SERUM 7.8 mg/dL (8.5-10.1); CREATININE 1.3 mg/dL (0.6-1.3); MAGNESIUM 1.4 mg/dL (1.8-2.4); PHOSPHORUS 2.9 mg/dL (2.5-4.9); POTASSIUM 3.9 mmol/L (3.5-5.1)
--- NOTE | 2020-11-18 06:21 | NUR ---
PRODUCT INSPECTION SUPERVISOR PT APPEARING MORE ALERT; PT VERBALIZES SHE WAS CONFUSED LAST NIGHT.
--- NOTE | 2020-11-18 07:15 | NUR ---
GARAGE MANAGER Bedside report taken from [facility] nurse Taylor KIM. pt awake, nonverbal, does not follow commands. moves bue 3/5 ble 1/5 perrla. pt on room air. tolerating well. spo2 100 %. pt has ngt to low intermittent suction. pt abdomen distended and round but soft. bowel sounds hypoactive. pt has harry small amount of old blood in harry, no output, charge nurse aware. pt has multiple wounds, see flowsheet and photos. all lines traced. all drips verified. safety measures in place. will continue to monitor. 1unit prbc pending from blood bank for transfusion.
[2020-11-18] MEDS: BLOOD SUGAR DIAGNOSTIC 1 EACH STRIP IN SCH ×4 (07:30→21:35)
--- NOTE | 2020-11-18 08:35 | NUR ---
PREVENTIVE MEDICINE OFFICER Mancuso flushed per md order. no output. charge nurse Kolton KIM aware.
[2020-11-18] MEDS: MULTIVITAMINS,THERAGRAN 1 UDTAB TABLET PO SCH (08:38)
[2020-11-18] MEDS: DOCUSATE SODIUM 100 MG CAPSULE PO SCH ×2 (08:38→16:21)
[2020-11-18] MEDS: ZINC SULFATE 220 MG CAPSULE PO SCH (08:39)
[2020-11-18] MEDS: ASCORBIC ACID 500 MG TABLET PO SCH (08:39)
--- NOTE | 2020-11-18 08:39 | NUR ---
EXECUTIVE SECRETARY SOCIAL WELFARE Dr Paige at bedside assessing pt and updated on pt status. aware pt has ngt to low suction, 300 ml out put over night and 100 ml out for am shift at this time, ALL PO meds held at this time per Dr Paige. aware that pt is to have 1 unit prbc transfusion. aware that pt has no urine output out of harry and that pt has old blood in harry from old bloody output. no other orders at this time.
[2020-11-18] MEDS: IV D5W 1,000 ML IV PRN (08:50)
[2020-11-18] MEDS: ERYTHROMYCIN 500 MG in IV NS 0.9% 100 ML IV SCH ×3 (08:50→18:30)
[2020-11-18] MEDS: HYDROGEL DRESSING 90 GM TUBE TP SCH (08:54)
[2020-11-18] MEDS: Z GUARD REMEDY 2 OZ OINT TP SCH (08:54)
[2020-11-18] MEDS: DAKINS QUARTER STRENGTH (0.125%) 480 ML BOTTLE TOP SCH (09:00)
--- NOTE | 2020-11-18 09:00 | NUR ---
RESOURCE CENTER TEACHER Ok per Dr Paige to hold pt IVF at this time while 1 unit PRBC transfusing because pt HD pt. charge nurse Kolton KIM aware.
--- NOTE | 2020-11-18 10:30 | NUR ---
BOTTLE AND GLASS INSPECTOR Connor BLOCK SPLITTER OPERATOR at bedside assessing pt and updated on pt status. BLOCK SPLITTER OPERATOR aware that pt having small amount of vaginal bleeding with clots and no urine output in harry, asked if harry can be removed since pt is anuric and HD pt d/t risk of infection, BLOCK SPLITTER OPERATOR to review pt chart and follow up at a later time. charge nurse tien KIM aware. will continue to monitor.
--- NOTE | 2020-11-18 10:50 | NUR ---
APPLE THINNER Protonix drip stopped per Pharmacist order. order discontinued
--- NOTE | 2020-11-18 12:15 | NUR ---
PERITONEAL DIALYSIS REGISTERED NURSE Mancuso flushed per md order. no output noted. charge nurse tien KIM aware.
--- NOTE | 2020-11-18 12:16 | NUR ---
MULTIPLE COIL WINDER All wounds care and dressing change done with Gabriele KIM per md order. pt tolerated well. prn dilaudid given for pain control. vitals stable. safety measures in place. will continue to monitor.
--- NOTE | 2020-11-18 12:20 | NUR ---
BUILDING MAINTENANCE SUPERINTENDENT Pt bathed and cleaned. linen change done. skin check done with Gabriele KIM. pt clean and dry. pt tolerating well. vitals stable. will continue to monitor.
[2020-11-18] MEDS: Magnesium 1GM/D5W 100ML PREMIX 100 ML IV SCH ×4 (12:28→15:22)
[2020-11-18] MEDS: HYDROMORPHONE 1 MG/1 ML DISP.SYRIN IV PRN ×2 (12:29→22:32)
--- NOTE | 2020-11-18 13:20 | NUR ---
JOB SETTER Altaf HEALTH PROMOTION COORDINATOR at bedside assessing pt and updated on pt status. HEALTH PROMOTION COORDINATOR aware that pt having small amount of vaginal bleeding with clots and no urine output in harry, asked if harry can be removed since pt is anuric and HD pt d/t risk of infection, HEALTH PROMOTION COORDINATOR to review pt chart and follow up at a later time. HEALTH PROMOTION COORDINATOR also aware that 300 ml ngt output on noc and 200 ml output on days, pt npo at this time. new orders pending. charge nurse tien KIM aware. will continue to monitor.
[2020-11-18] MEDS: FLUCONAZOLE IN NS 100 MG in PREMIX 1 EA IV SCH (13:30)
[2020-11-18 13:59] LABS: HEMOGLOBIN 8.6 g/dL (11.5-14.8)
[2020-11-18] MEDS: MEROPENEM 1 G in IV NS 0.9% 100 ML IV SCH (15:23)
--- NOTE | 2020-11-18 16:19 | NUR ---
RAPID OUTSOLE STITCHER Mancuso flushed per md order. no output noted. charge nurse tien KIM aware.
--- NOTE | 2020-11-18 18:35 | NUR ---
BOAT TENDER Pt transported via bed to room 102 with all belongings. pt awake, alert. vitals stable. no signs of acute distress at this time. safety measures in place. pt reoriented to new room. LIFE SCIENCE TECHNICAL OFFICER at bedside. IVPB endorsed to chris KIM. Addendum: 11/18/20 at 1859 by REGISTRY [facility] INPATIENT RN1 RN BOAT TENDER Telephone report given to Pao KIM. Pt transported via bed to room 102 with all belongings. pt awake, alert. vitals stable. no signs of acute distress at this time. safety measures in place. pt reoriented to new room. LIFE SCIENCE TECHNICAL OFFICER at bedside. IVPB endorsed to chris KIM.
--- NOTE | 2020-11-18 18:40 | NUR ---
GED TUTOR NOTES PATIENT FROM ICU. AO3, BULGARIAN SPEAKING, FOLLOWS COMMAND, PERIODS OF CONFUSION. SINUS TACH 105 ON MONITOR, NO CHEST PAIN OR DISCOMFORT, NO GRIMACING. D5W 75 ML/HR TO KEVEN PICC LINE, RIMMA MIDLINE FLUSHES WELL, CDI AND BOTH SITES CLEAR. NGT TO LEFT NARE ATTACHED TO LIS. JACKSON CATH IN PLACE WITH SMALL AMOUNT OF BLOODY OUTPUT, FLEXISEAL IN PLACE WITH DARK BROWN OUTPUT. SEE NURSING FLOWSHEET FOR SKIN ISSUES, MADE COMFORTABLE, ATTENDED TO NEEDS. IV ANTIBIOTIC STARTED. SAFETY MEASURES IN PLACE. BED LOW LOCKED. CALL LIGHT WITHIN REACH. WILL ENDORSE TO NEXT SHIFT FOR MERCED.
--- NOTE | 2020-11-18 19:35 | NUR ---
RN OPENING NOTES REC'D PT IN BED. A/OX3, MALDIVIAN SPEAKING, FOLLOWS COMMAND, SINUS TACH 105 ON MONITOR, PT DENIES CHEST PAIN OR DISCOMFORT, IVF D5W 75 ML/HR TO KEVEN PICC LINE, RIMMA MIDLINE FLUSHES WELL, CDI AND BOTH SITES CLEAR. NGT TO LEFT NARE CONNECTED TO LIS. JACKSON CATH IN PLACE WITH HEMATURIA. FLEXISEAL IN PLACE WITH DARK BROWN OUTPUT. SAFETY MEASURES IN PLACE. BED LOW LOCKED. BED ALARM ON. WILL CONT TO MONITOR. CALL LIGHT WITHIN REACH.
[2020-11-18] MEDS ORDERED: VANCOMYCIN 0.75 GM in IV D5W 250 ML IV SCH (21:00)
[2020-11-18] MEDS: PANTOPRAZOLE 40 MG VIAL IV SCH (21:21)
[2020-11-18] MEDS: SENNOSIDES 8.6 MG TABLET PO SCH (22:00)
--- NOTE | 2020-11-18 22:32 | NUR ---
RN NOTE PT REQUESTS PAIN MEDICATION, VERBALIZING SEVERE PAIN 10/10 FOR PAIN RELATED TO ABDOMEN, WILL ADMIN PRN DILAUDID 1MG ORDERED. WILL CONT TO MONITOR.
[2020-11-19] VITALS: BP 105/72
[2020-11-19] MEDS: METOCLOPRAMIDE HCL 10 MG/2 ML VIAL IV SCH ×4 (03:35→21:49)
[2020-11-19] MEDS: MEROPENEM 1 G in IV NS 0.9% 100 ML IV SCH ×2 (03:35→15:30)
--- NOTE | 2020-11-19 03:47 | NUR ---
RN NOTE BED BATH DONE, VAGINAL BLEEDING WITH CLOTS NOTED. PT DENIES PAIN BUT C/O N/V. DENIES NEED FOR MEDICATION WHEN ASKED. HOB ELEVATED WILL CONT TO MONITOR.
[2020-11-19] MEDS: IV D5W 1,000 ML IV PRN (03:58)
[2020-11-19 04:00] VITALS: BP 102/64
[2020-11-19 06:03] LABS: BASOPHILS # (AUTO) 0.1 K/uL (0.0-0.2); BASOPHILS % (AUTO) 0.7 % (0.0-2.0); EOSINOPHILS % (AUTO) 1.1 % (0.0-6.0); HEMATOCRIT 25 % (33-45); HEMOGLOBIN 8.1 g/dL (11.5-14.8); LYMPHOCYTES # (AUTO) 1.9 K/uL (0.8-4.8); LYMPHOCYTES % (AUTO) 16.3 % (20.0-44.0); MEAN CORPUSCULAR HGB CONC 33 g/dl (31.0-36.0); MEAN CORPUSCULAR VOLUME 91 fL (82-100); MONOCYTES # (AUTO) 1.3 K/uL (0.1-1.30); MONOCYTES % (AUTO) 11.1 % (2.0-12.0); NEUTROPHILS # (AUTO) 8.4 K/uL (1.8-8.9); NEUTROPHILS % (AUTO) 70.8 % (43.0-81.0); PLATELET COUNT (AUTO) 253 K/uL (150-450); RED BLOOD CELL COUNT(AUTO) 2.69 MIL/uL (4.0-5.2); WHITE BLOOD COUNT (AUTO) 11.8 K/uL (4.3-11.0)
[2020-11-19 06:24] LABS: CALCIUM, SERUM 7.6 mg/dL (8.5-10.1); CREATININE 1.3 mg/dL (0.6-1.3); MAGNESIUM 2.1 mg/dL (1.8-2.4); POTASSIUM 3.6 mmol/L (3.5-5.1)
--- NOTE | 2020-11-19 06:58 | NUR ---
RN CLOSING NOTES NO SIGNIFICANT CHANGES IN PT CONDITION. PT RESTED WELL. STILL REMAINS ON ROOM AIR NO RESP DISTRESS NO SOB NOTED. ALL NEEDS ATTENDED. PT DENIES PAIN AT THIS TIME. SAFETY MEASURES IN PLACE. HOB ELEVATED. BED LOCKED IN LOWEST POSITION WITH BED ALARM ON. CALL LIGHT WITHIN REACH. WILL CONT TO MONITOR
[2020-11-19] MEDS: BLOOD SUGAR DIAGNOSTIC 1 EACH STRIP IN SCH ×4 (07:51→23:58)
[2020-11-19 08:00] VITALS: BP 125/75
--- NOTE | 2020-11-19 08:00 | NUR ---
TASSEL MAKING MACHINE OPERATOR NOTE PATIENT IN BED AWAKE ALERT ,XE , ON RA NO SOB NOTED AT THIS TIME ,SATURATION 99% AT THIS TIME, ON TELE MONITOR SR HR 66 , WITH FLEXI CEAL RECTAL TUBE IN PLACE WITH SOME LEAKAGE NOTED , WITH JACKSON CATH TO GRAVITY WITH HEMATURIA NOTED AT THIS TIME, ABDOMEN WITH DRESSING IN PLACE , ON NPO WITH N G TUBE TO LOWER INTERMITTED SUCTION WITH SOME GREEN DRAINAGE NOTED, RT UPPER ARM PICC LINE AND RIMMA MID LINE IN PLCE ON D5W AT 80 ML PER HOUR BED IN LOWEST AND LOCKED POSITION, WILL CONT TO MONITOR CLOSELY
[2020-11-19] MEDS: ERYTHROMYCIN 500 MG in IV NS 0.9% 100 ML IV SCH ×3 (08:25→17:26)
[2020-11-19] MEDS: PANTOPRAZOLE 40 MG VIAL IV SCH ×2 (08:34→21:05)
[2020-11-19 08:49] LABS: EOSINOPHILS % (MANUAL) 1 % (0-4); LYMPHOCYTES % (MANUAL) 14 % (16-48); MONOCYTES % (MANUAL) 9 % (0-11.0); NEUTROPHILS % (MANUAL) 76 (42-76)
[2020-11-19] MEDS: DOCUSATE SODIUM 100 MG CAPSULE PO SCH ×2 (09:00→16:56)
[2020-11-19] MEDS: ASCORBIC ACID 500 MG TABLET PO SCH (09:00)
[2020-11-19] MEDS: MULTIVITAMINS,THERAGRAN 1 UDTAB TABLET PO SCH (09:00)
[2020-11-19] MEDS: ZINC SULFATE 220 MG CAPSULE PO SCH (09:00)
[2020-11-19] MEDS: HYDROGEL DRESSING 90 GM TUBE TP SCH (09:36)
[2020-11-19] MEDS: Z GUARD REMEDY 2 OZ OINT TP SCH (09:36)
--- NOTE | 2020-11-19 10:00 | NUR ---
RN NOTE DILAUDID 1 MG GIVEN FOR PAIN INTENSITY 01/31, VERBAL. PT'S BP, HR, AND RESPIRATIONS WNL.
[2020-11-19] MEDS: HYDROMORPHONE 1 MG/1 ML DISP.SYRIN IV PRN ×2 (10:07→14:26)
--- NOTE | 2020-11-19 10:13 | NUR ---
radio television technical director note seen by dr hirsch notified about some vaginal bleeding and on npo with lower intermitted suction , aslo notified that with Mancuso with hematuria, na 150 hg 8.1 still npo stated that will check it out ,will f\u
[2020-11-19] MEDS: DAKINS HALF STRENGTH (0.25%) 480 ML BOTTLE TOP SCH (10:25)
[2020-11-19 12:00] VITALS: BP 119/69
[2020-11-19] MEDS: FLUCONAZOLE IN NS 100 MG in PREMIX 1 EA IV SCH (14:19)
--- NOTE | 2020-11-19 14:29 | NUR ---
telephone order clerk note seen by kitty brown supervisor coating surgery aware of severe wounds on body ok to give Dilaudid 1mg for pain level 10 \10 bp is 119/69 rr 20, saturation 100%
[2020-11-19] MEDS ORDERED: TPN/PPN PER PHARMACY XX PRN (15:00)
[2020-11-19] MEDS ORDERED: DEXTROSE 50%-WATER 50 ML DISP.SYRIN IV PRN (15:30)
[2020-11-19 16:00] VITALS: BP 128/72
[2020-11-19] MEDS ORDERED: TPN BAG #1 IV SCH (16:00)
--- NOTE | 2020-11-19 16:00 | NUR ---
TAR POT MAN NOTE PER GRANT RN DATA ANALYST SURGERY OK TO CONT N GTUBE TO SUCTION ,ALSO OK TO START TPN , WILL CONT TO MONFORT
--- NOTE | 2020-11-19 18:27 | NUR ---
RN CLOSING NOTE NO SIGNIFICANT CHANGES IN PT CONDITION. PT WAS RESTING THROUGHOUT MOST OF THE SHIFT AND TOLERATED MEDICATION REGIMEN AND WOUND CARE ORDERED. VITAL SIGNS WNL THROUGHOUT SHIFT. COMPLAINTS OF SEVERE PAIN THROUGHOUT THE DAY TREATED WITH PRN DOSE OF 1MG DILAUDID PER MD/USABILITY SPECIALIST ORDERS. PAIN RE-ASSESSMENT COMPLETED AND PAIN REDUCTION VERBALIZED 06/02. TPN BEGUN AND RUNNING THROUGH KEVEN PICC LINE, TOLERATING WELL. DECREASED IVF FROM 75ML/HR TO 30/ML PER HOUR PER MD ORDERS. STILL REMAINS ON ROOM AIR NO RESP DISTRESS NO SOB NOTED. ALL NEEDS ATTENDED. PT DENIES PAIN AT THIS TIME AND RESTING IN BED. SAFETY MEASURES IN PLACE. HOB ELEVATED. BED LOCKED IN LOWEST POSITION WITH BED ALARM ON. CALL LIGHT WITHIN REACH. NO ACUTE DISTRESS NOTED AT THIS TIME. WILL ENDORSE CONTINUITY OF CARE TO TOWER ERECTOR HELPER RN
--- NOTE | 2020-11-19 20:23 | NUR ---
RN OPENING NOTES PT RECEIVED IN BED. A&OX3-4. ROMANIAN SPEAKER. TPN RUNNING AT 40 ML/HR THROUGH KEVEN PICC LINE, TOLERATING WELL. IV FLUIDS RUNNING AT 30/ML PER HOUR. PT ON ROOM AIR NO RESPIRATORY DISTRESS NO SOB NOTED. DRESSINGS INTACT. PT DENIES PAIN AT THIS TIME AND RESTING IN BED. SAFETY MEASURES IN PLACE. HOB ELEVATED. BED LOCKED AND LOWEST POSITION. CALL LIGHT WITHIN REACH. WILL CONTINUE TO MONITOR.
[2020-11-19 20:45] VITALS: BP 108/69
[2020-11-19] MEDS: SENNOSIDES 8.6 MG TABLET PO SCH (21:06)
[2020-11-20] VITALS: BP 111/74
[2020-11-20] MEDS: MEROPENEM 1 G in IV NS 0.9% 100 ML IV SCH ×2 (03:09→15:37)
[2020-11-20] MEDS: HYDROMORPHONE 1 MG/1 ML DISP.SYRIN IV PRN ×3 (03:14→20:27)
[2020-11-20] MEDS: IV D5W 1,000 ML IV PRN (03:18)
[2020-11-20 04:00] VITALS: BP 128/72
[2020-11-20] MEDS: METOCLOPRAMIDE HCL 10 MG/2 ML VIAL IV SCH ×4 (04:48→21:05)
[2020-11-20] MEDS: BLOOD SUGAR DIAGNOSTIC 1 EACH STRIP IN SCH ×3 (05:55→18:09)
[2020-11-20 06:37] LABS: BASOPHILS # (AUTO) 0.1 K/uL (0.0-0.2); BASOPHILS % (AUTO) 0.4 % (0.0-2.0); EOSINOPHILS % (AUTO) 1.5 % (0.0-6.0); HEMATOCRIT 26 % (33-45); HEMOGLOBIN 8.5 g/dL (11.5-14.8); LYMPHOCYTES # (AUTO) 2.1 K/uL (0.8-4.8); LYMPHOCYTES % (AUTO) 15.9 % (20.0-44.0); MEAN CORPUSCULAR HGB CONC 33 g/dl (31.0-36.0); MEAN CORPUSCULAR VOLUME 92 fL (82-100); MONOCYTES # (AUTO) 1.5 K/uL (0.1-1.30); MONOCYTES % (AUTO) 11.8 % (2.0-12.0); NEUTROPHILS # (AUTO) 9.1 K/uL (1.8-8.9); NEUTROPHILS % (AUTO) 70.4 % (43.0-81.0); PLATELET COUNT (AUTO) 242 K/uL (150-450); RED BLOOD CELL COUNT(AUTO) 2.82 MIL/uL (4.0-5.2)
[2020-11-20 06:40] LABS: PREALBUMIN 11.7 MG/DL (18.0-35.7)
[2020-11-20 06:45] LABS: CALCIUM, SERUM 7.4 mg/dL (8.5-10.1); CREATININE 1.4 mg/dL (0.6-1.3); MAGNESIUM 1.7 mg/dL (1.8-2.4); PHOSPHORUS 2.7 mg/dL (2.5-4.9); POTASSIUM 3.3 mmol/L (3.5-5.1)
--- NOTE | 2020-11-20 07:06 | NUR ---
RN CLOSING NOTES PT RECEIVED IN BED. A&OX3-4. ROMANIAN SPEAKER. TPN RUNNING AT 40 ML/HR THROUGH KEVEN PICC LINE, TOLERATING WELL. IV FLUIDS RUNNING AT 30/ML PER HOUR. PT ON ROOM AIR NO RESPIRATORY DISTRESS NO SOB NOTED. DRESSINGS INTACT. PT REPORTED PAIN 10/10 DILAUDID PROVIDED. PT REPORTED TOLERABLE PAIN LEVEL. WOUND CARE PROVIDED DRESSING INTACT/CLEAN. SAFETY MEASURES IN PLACE. HOB ELEVATED. BED LOCKED AND LOWEST POSITION. CALL LIGHT WITHIN REACH. MERCED INITIATED. WILL CONTINUE TO MONITOR.
--- NOTE | 2020-11-20 07:10 | NUR ---
RN OPENING NOTES RECEIVED PT IN BED. A/OX3-4. GREEK SPEAKING. STABLE ON ROOM AIR. NO SOB OR ANY S/S OF RESPIRATORY DISTRESS NOTED. TPN RUNNING @40 ML/HR ON KEVEN PICC LINE, TOLERATING WELL. IVF OF D5W @30/ML/HR, ON RIMMA MIDLINE, INFUSING WELL. NGT IN PLACE CONNECTED TO LOW INTERMITTENT SUCTION. SAFETY MEASURES IN PLACE. CALL LIGHT WITHIN REACH. HOB ELEVATED. BED LOCKED AND LOWEST POSITION WITH SIDE RAILS UP X3. WILL CONTINUE TO MONITOR.
[2020-11-20 08:00] VITALS: BP 125/81
[2020-11-20] MEDS: ERYTHROMYCIN 500 MG in IV NS 0.9% 100 ML IV SCH ×3 (08:21→17:08)
[2020-11-20] MEDS: Magnesium 1GM/D5W 100ML PREMIX 100 ML IV SCH ×2 (08:22→09:33)
[2020-11-20] MEDS: POTASSIUM CL. PREMIX PERIPHER. 50 ML IV SCH ×2 (08:23→09:35)
[2020-11-20] MEDS: PANTOPRAZOLE 40 MG VIAL IV SCH ×2 (08:23→20:27)
[2020-11-20] MEDS: ASCORBIC ACID 500 MG TABLET PO SCH (09:00)
[2020-11-20] MEDS: DOCUSATE SODIUM 100 MG CAPSULE PO SCH ×2 (09:00→17:00)
[2020-11-20] MEDS: MULTIVITAMINS,THERAGRAN 1 UDTAB TABLET PO SCH (09:00)
[2020-11-20] MEDS: ZINC SULFATE 220 MG CAPSULE PO SCH (09:00)
[2020-11-20] MEDS: DAKINS HALF STRENGTH (0.25%) 480 ML BOTTLE TOP SCH (09:10)
[2020-11-20] MEDS: HYDROGEL DRESSING 90 GM TUBE TP SCH (09:11)
[2020-11-20] MEDS: Z GUARD REMEDY 2 OZ OINT TP SCH (09:11)
[2020-11-20 12:00] VITALS: BP 114/77
[2020-11-20] MEDS: INSULIN REGULAR, HUMAN 100 UNIT/ML 3 ML VIAL SQ PRN ×2 (12:17→18:09)
--- NOTE | 2020-11-20 12:18 | NUR ---
RN NOTES BLOOD SUGAR OF 115, NO INSULIN COVERAGE.
[2020-11-20] MEDS: FLUCONAZOLE IN NS 100 MG in PREMIX 1 EA IV SCH (13:02)
[2020-11-20 16:00] VITALS: BP 121/82
[2020-11-20] MEDS ORDERED: TPN BAG #2 IV SCH (16:00)
--- NOTE | 2020-11-20 18:15 | NUR ---
RN NOTES BLOOD SUGAR OF 108, NO INSULIN COVERAGE.
--- NOTE | 2020-11-20 19:10 | NUR ---
RN CLOSING NOTES NO SIGNIFICANT CHANGES THROUGHOUT THE SHIFT. NO SOB OR ANY PAIN REPORTED. ALL DUE MEDS GIVEN. NEEDS ATTENDED. KEPT CLEAN AND DRY. RESTING COMFORTABLY IN BED. ENDORSED TO NIGHT RN FOR MERCED.
--- NOTE | 2020-11-20 19:30 | NUR ---
RN NOTE RECEIVED PATIENT IN BED. A/OX3-4, UNDERSTAND GRENADIAN. TOLERATING ROOM AIR. RESPIRATIONS ARE EVEN AND UNLABORED. NO S/S SOB NOTED. PATIENT HAS A NG TUBE CONNECTED TO LOW INTERMITTENT SUCTION. NO S/S PAIN NOTED. EXTERNAL TELE MONITOR READS SINUS RHYTHM HR 87. IN NO APPARENT DISTRESS. IV ACCESS IN KEVEN PICC LINE RUNNING TPN @50ML/HR. RIMMA RUNNING D5W@30ML/HR. JACKSON CATHETER IS PRESENT, DRAINGING TO GRAVITY, FLEXISEAL IS ALSO PRESENT. BED IS LOW AND LOCKED, HOB ELEVATED IN HIGH FOWLERS, SIDE RAILS UP X3, ZENOBIA LIGHT WITHIN REACH. WILL CONTINUE TO MONITOR.
[2020-11-20 20:00] VITALS: BP 137/85
[2020-11-20] MEDS ORDERED: Magnesium 1GM/D5W 100ML PREMIX 100 ML IV SCH (20:00)
[2020-11-20] MEDS ORDERED: POTASSIUM CL. PREMIX PERIPHER. 50 ML IV SCH (20:00)
--- NOTE | 2020-11-20 20:28 | NUR ---
RN NOTE PATIENT STATES SHE IS IN PAIN 10/10 IN ABDOMEN. WILL ADMINISTER PRN DILAUDID 1MG. BP 137/85. PATIENT WAS ALSO DRY HEAVING, OFFER ZOFRAN BUT REFUSED.
[2020-11-20] MEDS: SENNOSIDES 8.6 MG TABLET PO SCH (21:03)
[2020-11-21] VITALS: BP 121/79
[2020-11-21] MEDS: BLOOD SUGAR DIAGNOSTIC 1 EACH STRIP IN SCH ×4 (00:11→17:32)
[2020-11-21] MEDS: INSULIN REGULAR, HUMAN 100 UNIT/ML 3 ML VIAL SQ PRN ×2 (00:12→05:40)
[2020-11-21] MEDS: HYDROMORPHONE 1 MG/1 ML DISP.SYRIN IV PRN ×3 (02:45→19:57)
[2020-11-21 04:00] VITALS: BP 117/83
[2020-11-21] MEDS: METOCLOPRAMIDE HCL 10 MG/2 ML VIAL IV SCH ×4 (04:44→21:33)
[2020-11-21] MEDS: MEROPENEM 1 G in IV NS 0.9% 100 ML IV SCH ×2 (04:44→15:47)
[2020-11-21 06:01] LABS: CALCIUM, SERUM 7.3 mg/dL (8.5-10.1); CREATININE 1.3 mg/dL (0.6-1.3); MAGNESIUM 2.2 mg/dL (1.8-2.4); PHOSPHORUS 2.1 mg/dL (2.5-4.9); POTASSIUM 3.2 mmol/L (3.5-5.1)
[2020-11-21 06:13] LABS: BASOPHILS % (AUTO) 0.3 % (0.0-2.0); EOSINOPHILS % (AUTO) 1.5 % (0.0-6.0); HEMATOCRIT 25 % (33-45); HEMOGLOBIN 8.1 g/dL (11.5-14.8); LYMPHOCYTES # (AUTO) 2.1 K/uL (0.8-4.8); LYMPHOCYTES % (AUTO) 16.6 % (20.0-44.0); MEAN CORPUSCULAR HGB CONC 32 g/dl (31.0-36.0); MEAN CORPUSCULAR VOLUME 93 fL (82-100); MONOCYTES # (AUTO) 1.4 K/uL (0.1-1.30); MONOCYTES % (AUTO) 11.1 % (2.0-12.0); NEUTROPHILS # (AUTO) 8.9 K/uL (1.8-8.9); NEUTROPHILS % (AUTO) 70.5 % (43.0-81.0); PLATELET COUNT (AUTO) 227 K/uL (150-450); RED BLOOD CELL COUNT(AUTO) 2.69 MIL/uL (4.0-5.2); WHITE BLOOD COUNT (AUTO) 12.7 K/uL (4.3-11.0)
--- NOTE | 2020-11-21 06:24 | NUR ---
RN NOTE PATIENT RESTING IN BED. A/OX3-4. REMAINS TOLERATING ROOM AIR. NO RESP DISTRESS. NG TUBE MAINTAINED CONNECTED TO LOW INTERMITTENT SUCTION, NO SIGNIFICANT DRAINAGE AMOUNT. MANAGED PAIN WITH DILAUDID THROUGHOUT SHIFT. TELE MONITOR READS SINUS RHYTHM. NO DISTRESS. KEVEN PICC LINE RUNNING TPN @50ML/HR. RIMMA RUNNING D5W@30ML/HR. JACKSON CATHETER URINE WITH FEW RED SEDIMENTS, OUTPUT 1150ML. FLEXISEAL MAINTAINED, OUTPUT 150ML. BED REMAINS LOW AND LOCKED, HOB ELEVATED IN HIGH FOWLERS, SIDE RAILS UP X3, CALL LIGHT WITHIN REACH. WILL ENDORSE TO ONCOMING SHIFT.
[2020-11-21] MEDS: ERYTHROMYCIN 500 MG in IV NS 0.9% 100 ML IV SCH ×3 (06:41→17:27)
[2020-11-21 08:00] VITALS: BP 154/94
[2020-11-21] MEDS ORDERED: POTASSIUM PHOSPHATE MM 7.5 MMOL in IV NS 0.9% 100 ML IV SCH (10:00)
[2020-11-21] MEDS: PANTOPRAZOLE 40 MG VIAL IV SCH ×2 (10:29→20:37)
[2020-11-21] MEDS: ZINC SULFATE 220 MG CAPSULE PO SCH (10:30)
[2020-11-21] MEDS: MULTIVITAMINS,THERAGRAN 1 UDTAB TABLET PO SCH (10:30)
[2020-11-21] MEDS: DOCUSATE SODIUM 100 MG CAPSULE PO SCH ×2 (10:30→17:00)
[2020-11-21] MEDS: ASCORBIC ACID 500 MG TABLET PO SCH (10:30)
[2020-11-21] MEDS: POTASSIUM CL. PREMIX PERIPHER. 50 ML IV SCH ×4 (10:32→14:10)
[2020-11-21] MEDS: DAKINS HALF STRENGTH (0.25%) 480 ML BOTTLE TOP SCH (10:32)
[2020-11-21] MEDS: HYDROGEL DRESSING 90 GM TUBE TP SCH (10:33)
[2020-11-21] MEDS: Z GUARD REMEDY 2 OZ OINT TP SCH (10:33)
[2020-11-21 12:00] VITALS: BP 123/89
[2020-11-21] MEDS ORDERED: TPN BAG #3 IV SCH (12:00)
[2020-11-21] MEDS: FLUCONAZOLE IN NS 100 MG in PREMIX 1 EA IV SCH (14:09)
[2020-11-21] MEDS ORDERED: POTASSIUM PHOSPHATE MM 15 MMOL in IV NS 0.9% 250 ML IV SCH (15:00)
[2020-11-21 16:00] VITALS: BP 128/83
--- NOTE | 2020-11-21 19:30 | NUR ---
RN NOTES RN NOTES Received patient sleeping but arousable, a/ox3, citizen of [place] speaking, STon tele monitor HR-103, flexiseal in place, F/C draining clear yellow urine, not in distress, bed in locked position, siderailsupx3, will continue to monitor
[2020-11-21 20:00] VITALS: BP 132/90
[2020-11-21] MEDS: IV D5W 1,000 ML IV PRN (20:38)
[2020-11-21] MEDS: SENNOSIDES 8.6 MG TABLET PO SCH (21:30)
[2020-11-22] VITALS: BP 152/85
[2020-11-22] MEDS: BLOOD SUGAR DIAGNOSTIC 1 EACH STRIP IN SCH ×4 (00:07→17:40)
[2020-11-22] MEDS: ONDANSETRON HCL/PF 4 MG/2 ML VIAL IV PRN ×2 (01:08→08:55)
--- NOTE | 2020-11-22 01:08 | NUR ---
RN NOTES PT. IS FEELING NAUSEOUS- ZOFRAN 4 MG IV GIVEN ORDERED
[2020-11-22] MEDS: HYDROMORPHONE 1 MG/1 ML DISP.SYRIN IV PRN ×4 (01:14→19:51)
--- NOTE | 2020-11-22 01:14 | NUR ---
RN NOTES COMPLAINED OF GENERALIZED PAIN- DILAUDID 1MG IV GIVEN ORDERED, V/S STABLE
[2020-11-22] MEDS: MEROPENEM 1 G in IV NS 0.9% 100 ML IV SCH ×2 (03:59→15:39)
[2020-11-22 04:00] VITALS: BP 138/82
[2020-11-22] MEDS: METOCLOPRAMIDE HCL 10 MG/2 ML VIAL IV SCH ×4 (04:01→21:37)
--- NOTE | 2020-11-22 05:05 | NUR ---
RN NOTES Complained of generalized pain- Dilaudid 1mg IV given as ordered,
--- NOTE | 2020-11-22 06:17 | NUR ---
RN NOTES SLEEPING BUT AROUSABLE, NOT IN DISTRESS, NO PAIN NOTED, MORNING CARE RENDERED, CALL LIGHT WITHIN REACH, [id number], PT. NEEDS ATTENDED
[2020-11-22 06:37] LABS: CALCIUM, SERUM 7.4 mg/dL (8.5-10.1); CREATININE 1.2 mg/dL (0.6-1.3); MAGNESIUM 1.6 mg/dL (1.8-2.4); PHOSPHORUS 2.3 mg/dL (2.5-4.9); POTASSIUM 3.9 mmol/L (3.5-5.1)
[2020-11-22 07:02] LABS: BASOPHILS # (AUTO) 0.1 K/uL (0.0-0.2); BASOPHILS % (AUTO) 0.6 % (0.0-2.0); EOSINOPHILS % (AUTO) 5.2 % (0.0-6.0); HEMATOCRIT 24 % (33-45); LYMPHOCYTES # (AUTO) 2.7 K/uL (0.8-4.8); LYMPHOCYTES % (AUTO) 17.6 % (20.0-44.0); MEAN CORPUSCULAR HGB CONC 33 g/dl (31.0-36.0); MEAN CORPUSCULAR VOLUME 93 fL (82-100); MONOCYTES # (AUTO) 1.7 K/uL (0.1-1.30); MONOCYTES % (AUTO) 11.4 % (2.0-12.0); NEUTROPHILS # (AUTO) 9.9 K/uL (1.8-8.9); NEUTROPHILS % (AUTO) 65.2 % (43.0-81.0); PLATELET COUNT (AUTO) 601 K/uL (150-450); RED BLOOD CELL COUNT(AUTO) 2.61 MIL/uL (4.0-5.2); WHITE BLOOD COUNT (AUTO) 15.2 K/uL (4.3-11.0)
--- NOTE | 2020-11-22 07:42 | NUR ---
END TOUCHING MACHINE OPERATOR OPENING NOTES RECEIVED PATIENT IN BED, AWAKE, A/O X3. PATIENT ON ROOM AIR; BREATHING EVEN AND UNLABORED, NO SOB PRESENT AT THIS TIME. NO COMPLAINS OF PAIN. TELE MONITOR WITH A READING OF SR 92. FLEXISEAL IN PLACE, F/C IN PLACE DRAINING CLEAR YELLOW URINE. SAFETY PRECAUTIONS IN PLACE; BED IN LOW POSITION AND LOCKED, RAILS UP X2, CALL LIGHT WITHIN REACH. WILL CONTINUE TO MONITOR PATIENT.
[2020-11-22] MEDS ORDERED: POTASSIUM PHOSPHATE MM 15 MMOL in IV NS 0.9% 250 ML IV SCH ×2 (08:00→10:00)
[2020-11-22] MEDS ORDERED: TPN BAG #4 IV SCH (08:00)
[2020-11-22] MEDS: MULTIVITAMINS,THERAGRAN 1 UDTAB TABLET PO SCH (08:35)
[2020-11-22] MEDS: DOCUSATE SODIUM 100 MG CAPSULE PO SCH ×2 (08:35→16:05)
[2020-11-22] MEDS: ASCORBIC ACID 500 MG TABLET PO SCH (08:35)
[2020-11-22] MEDS: ZINC SULFATE 220 MG CAPSULE PO SCH (08:35)
[2020-11-22] MEDS: HYDROGEL DRESSING 90 GM TUBE TP SCH (08:36)
[2020-11-22] MEDS: Z GUARD REMEDY 2 OZ OINT TP SCH (08:36)
[2020-11-22] MEDS: DAKINS HALF STRENGTH (0.25%) 480 ML BOTTLE TOP SCH (08:36)
[2020-11-22] MEDS: PANTOPRAZOLE 40 MG VIAL IV SCH ×2 (08:39→21:36)
[2020-11-22] MEDS: Magnesium 1GM/D5W 100ML PREMIX 100 ML IV SCH ×4 (08:40→21:10)
[2020-11-22 09:13] VITALS: BP 137/88
[2020-11-22 09:23] LABS: EOSINOPHILS % (MANUAL) 1 % (0-4); LYMPHOCYTES % (MANUAL) 8 % (16-48); MONOCYTES % (MANUAL) 10 % (0-11.0); MYELOCYTES % 3 % (0-0); NEUTROPHILS % (MANUAL) 78 (42-76)
[2020-11-22] MEDS: ERYTHROMYCIN 500 MG in IV NS 0.9% 100 ML IV SCH ×3 (09:43→17:42)
[2020-11-22 12:02] VITALS: BP 157/90
[2020-11-22] MEDS: FLUCONAZOLE IN NS 100 MG in PREMIX 1 EA IV SCH (14:17)
[2020-11-22] MEDS: FAT EMULSION 20% 500 ML in PREMIX 1 EA IV SCH (15:26)
[2020-11-22 18:20] VITALS: BP 150/86
--- NOTE | 2020-11-22 18:49 | NUR ---
TEST MAN CLOSING NOTES PATIENT REMAINS IN BED, AWAKE, A/O X3. PATIENT ON ROOM AIR; BREATHING EVEN AND UNLABORED, NO SOB PRESENT AT THIS TIME. PAIN TREATED WITH PRN PAIN MEDICATION. TELE MONITOR WITH A READING OF SR 96. FLEXISEAL IN PLACE, F/C IN PLACE DRAINING CLEAR YELLOW URINE WITH A DAY OUTPUT OF 1150 MLS. ALL NEEDS ATTENDED THROUGHOUT THE DAY. SAFETY PRECAUTIONS IN PLACE; BED IN LOW POSITION AND LOCKED, RAILS UP X2, CALL LIGHT WITHIN REACH. WILL ENDORSE TO LIBRARY CLERICAL ASSISTANT NURSE.
[2020-11-22 20:00] VITALS: BP 147/90
--- NOTE | 2020-11-22 20:00 | NUR ---
RN NOTE RECEIVED PT IN BED, ALERT AND ORIENTED. ON TELE MONITORING SHOWS SINUS TACH, WITH HR OF 106, PT COMPLAINS OF 10/10 PAIN ON ABDOMEN AREA. DILAUDID GIVEN ORDERED. NGT IN PLACE CONNECTED TO LOW INTERMITTENT SUCTION. PT ON NPO, TPN AND LIPIDS RUNNING. ON IV D5W AT 30ML.HR. JACKSON CATH IN PLACE, DRAINING CLEAR YELLOW URINE. FLEXISEAL IN PLACE. WILL CONTINUE TO MONITOR. ALL SAFETY MEASURES IN PLACE PER PROTOCOL, CALL LIGHT WITHIN REACH, BED LOCKED IN LOWEST POSITION, SIDE RAILS UP.
--- NOTE | 2020-11-22 21:32 | NUR ---
RN NOTE PT MG IN AM WAS 1.6, REPLACED 2GMS IN AM. PT WITH ANOTHER ORDER OF 2GM DUE TONIGHT, CLARIFIED ORDER WITH PROJECT ACCOUNT MANAGER, ROUTING EQUIPMENT TENDER HOMER, PER ROUTING EQUIPMENT TENDER, DO NOT ADMINISTER AND RECHECK MG DILSHAD MORNING. CHARGE NURSE MADE AWARE.
[2020-11-22] MEDS: SENNOSIDES 8.6 MG TABLET PO SCH (21:37)
[2020-11-23] VITALS (7 sets, daily range): BP systolic 137–155; BP diastolic 72–90
[2020-11-23] MEDS: BLOOD SUGAR DIAGNOSTIC 1 EACH STRIP IN SCH ×4 (00:05→17:18)
[2020-11-23] MEDS: INSULIN REGULAR, HUMAN 100 UNIT/ML 3 ML VIAL SQ PRN ×3 (00:06→12:09)
[2020-11-23] MEDS: HYDROMORPHONE 1 MG/1 ML DISP.SYRIN IV PRN ×4 (02:31→19:28)
[2020-11-23] MEDS ORDERED: TPN BAG #5 IV SCH (04:00)
[2020-11-23] MEDS: METOCLOPRAMIDE HCL 10 MG/2 ML VIAL IV SCH ×4 (04:31→21:19)
[2020-11-23] MEDS: MEROPENEM 1 G in IV NS 0.9% 100 ML IV SCH ×2 (04:34→16:52)
[2020-11-23] MEDS: IV D5W 1,000 ML IV PRN (06:30)
[2020-11-23 06:56] LABS: BASOPHILS # (AUTO) 0.1 K/uL (0.0-0.2); BASOPHILS % (AUTO) 0.7 % (0.0-2.0); HEMATOCRIT 25 % (33-45); HEMOGLOBIN 8.4 g/dL (11.5-14.8); LYMPHOCYTES # (AUTO) 2.4 K/uL (0.8-4.8); LYMPHOCYTES % (AUTO) 17.5 % (20.0-44.0); MEAN CORPUSCULAR HGB CONC 34 g/dl (31.0-36.0); MEAN CORPUSCULAR VOLUME 92 fL (82-100); MONOCYTES # (AUTO) 1.5 K/uL (0.1-1.30); MONOCYTES % (AUTO) 11.1 % (2.0-12.0); NEUTROPHILS # (AUTO) 9.7 K/uL (1.8-8.9); NEUTROPHILS % (AUTO) 69.7 % (43.0-81.0); PLATELET COUNT (AUTO) 241 K/uL (150-450); RED BLOOD CELL COUNT(AUTO) 2.67 MIL/uL (4.0-5.2); WHITE BLOOD COUNT (AUTO) 13.9 K/uL (4.3-11.0)
--- NOTE | 2020-11-23 07:00 | NUR ---
RN NOTE PT REMAINS IN BED. ABLE TO MAKE NEEDS KNOWN. DILAUDID GIVEN FOR PAIN. NO SIGNS OF DISTRESS NOTED. CONTINUE ON TPN AND IV FLUIDS. DUE IV ATB GIVEN ORDERED. NO SIGNS OF INFILTRATION NOTED. NGT CONNECTED TO LIS, WITH 100 ML GREENISH DRAINAGE. WOUND TX DONE ORDERED. JACKSON DRAINING WELL. WILL ENDORSE TO NEXT SHIFT NURSE FOR MERCED.
[2020-11-23 07:13] LABS: CALCIUM, SERUM 7.3 mg/dL (8.5-10.1); CREATININE 1.1 mg/dL (0.6-1.3); MAGNESIUM 1.6 mg/dL (1.8-2.4); POTASSIUM 3.3 mmol/L (3.5-5.1)
--- NOTE | 2020-11-23 07:30 | NUR ---
RN AM NOTE RECEIVED PT IN BED, ALERT AND ORIENTED. SR TO ST ON MONITOR. NO CHEST PAIN OR DISCOMFORT. COMPLAIN OF ABDOMINAL PAIN AND IS ON PAIN MANAGEMENT - DILAUDID 1 MG Q [address] CONNECTED TO LOW INTERMITTENT SUCTION. PT ON NPO, TPN AND LIPIDS RUNNING. ON IV D5W AT 30ML.HR. JACKSON CATH IN PLACE, DRAINING CLEAR YELLOW URINE. FLEXISEAL IN PLACE. WILL CONTINUE TO MONITOR. ALL SAFETY MEASURES IN PLACE PER PROTOCOL, CALL LIGHT WITHIN REACH, BED LOCKED IN LOWEST POSITION, SIDE RAILS UP.WILL CONTINUE TO MONITOR
[2020-11-23] MEDS ORDERED: POTASSIUM PHOSPHATE MM 15 MMOL in IV NS 0.9% 250 ML IV SCH (08:30)
[2020-11-23] MEDS: ZINC SULFATE 220 MG CAPSULE PO SCH (09:00)
[2020-11-23] MEDS: ASCORBIC ACID 500 MG TABLET PO SCH (09:00)
[2020-11-23] MEDS: DOCUSATE SODIUM 100 MG CAPSULE PO SCH ×2 (09:00→16:57)
[2020-11-23] MEDS: MULTIVITAMINS,THERAGRAN 1 UDTAB TABLET PO SCH (09:00)
--- NOTE | 2020-11-23 09:30 | NUR ---
RN NOTES DUE MEDS GIVEN
[2020-11-23] MEDS: PANTOPRAZOLE 40 MG VIAL IV SCH ×2 (09:48→20:22)
[2020-11-23] MEDS: Magnesium 1GM/D5W 100ML PREMIX 100 ML IV SCH ×2 (09:48→11:31)
[2020-11-23] MEDS: HYDROGEL DRESSING 90 GM TUBE TP SCH (09:49)
[2020-11-23] MEDS: Z GUARD REMEDY 2 OZ OINT TP SCH (09:49)
[2020-11-23] MEDS: DAKINS HALF STRENGTH (0.25%) 480 ML BOTTLE TOP SCH (09:56)
[2020-11-23] MEDS: ERYTHROMYCIN 500 MG in IV NS 0.9% 100 ML IV SCH ×3 (09:57→17:52)
[2020-11-23] MEDS: FLUCONAZOLE IN NS 100 MG in PREMIX 1 EA IV SCH (14:24)
--- NOTE | 2020-11-23 15:54 | NUR ---
RN NOTES RIGHT UPPER EXTREMITY ULTRASOUND POSITIVE THROMBOSIS TO RT IJ AND AXILLARY VEIN. RELAYED TO DR. TAYLOR. ORDERED FOR ANOTHER PICC LINE INSERTION. MAY USE CURRENT PICC LINE UNTIL NEW ONE IS PLACED. ORDERED TO START LOVENOX 1.5MG/KG SUBCUTANEOUS DAILY.
[2020-11-23] MEDS ORDERED: ENOXAPARIN SODIUM 30 MG/0.3 ML DISP.SYRIN SQ SCH (16:00)
[2020-11-23] MEDS ORDERED: ENOXAPARIN SODIUM 120 MG/0.8 ML DISP.SYRIN SQ SCH (16:00)
[2020-11-23] MEDS ORDERED: ENOXAPARIN SODIUM 150 MG/ML DISP.SYRIN SQ SCH (16:00)
--- NOTE | 2020-11-23 19:16 | NUR ---
RN CLOSING NOTE PT REMAINS IN BED. ABLE TO MAKE NEEDS KNOWN. NO SIGNS OF DISTRESS NOTED. CONTINUE ON TPN AND IV FLUIDS. DUE IV ATB GIVEN ORDERED. NGT CONNECTED TO LIS, WITH 75 ML GREENISH DRAINAGE. WOUND TX DONE ORDERED. JACKSON DRAINING WELL 2600 ML OUTPUT. ALL NEEDS MET, PATIENT CONTINUES TO REFUSE TO TURN AND REPOSITION. ENDORSED TO NEXT SHIFT FOR MERCED. PATIENT FOR PICC LINE INSERTION, PER CHARGE NURSE SOON, PICC LINE NURSE WILL BE HERE AT 0700. CONSENT SIGNED.
--- NOTE | 2020-11-23 19:28 | NUR ---
RN PAIN PT C/O ACHING PAIN IN MEDIAL ABDOMEN, RATED 9/10 ON 0-10 PAIN SCALE. VSS. PER PT REQUEST, ADMINISTERED DILAUDID 1 MG IV Q4H PRN FOR PAIN. WILL CONTINUE TO MONITOR.
--- NOTE | 2020-11-23 19:30 | NUR ---
LEASING REPRESENTATIVE OPENING NOTE RECEIVED PT AWAKE IN BED. A/O X3. PT STABLE ON ROOM AIR. NO SOB OR S/S OF RESPIRATORY DISTRESS NOTED. PT ON EXTERNAL DIETARY AID READING SR 92. PT HAS NO C/O PAIN OR DISCOMFORT AT THIS TIME. IV ACCESS IN RIMMA MIDLINE AND KEVEN PICC LINE, INTACT AND PATENT. PT NOTED WITH NGT IN THE RIGHT NARES, INTACT, CONNECTED TO LOW INTERMITTENT SUCTION. FLEXISEAL NOTED IN PLACE AND PATENT. JACKSON CATH IN PLACE DRAINING CLEAR YELLOW URINE. SAFETY PRECAUTIONS MAINTAINED. BED IN LOWEST LOCKED POSITION, HOB ELEVATED, SIDE RAILS UP X2. CALL LIGHT AND TABLE WITHIN REACH. WILL CONTINUE WITH PLAN OF CARE.
[2020-11-23] MEDS ORDERED: TPN BAG #6 IV SCH (21:00)
[2020-11-23] MEDS: SENNOSIDES 8.6 MG TABLET PO SCH (21:19)
--- NOTE | 2020-11-23 22:30 | NUR ---
ALAN MCGHEE AT BEDSIDE FOR PICC LINE INSERTION IN [facility].
[2020-11-24] VITALS: BP 137/90
[2020-11-24] MEDS: HYDROMORPHONE 1 MG/1 ML DISP.SYRIN IV PRN ×5 (00:43→21:32)
--- NOTE | 2020-11-24 00:43 | NUR ---
RN PAIN PT C/O ACHING PAIN IN MEDIAL ABDOMEN, RATED 10/10 ON 0-10 PAIN SCALE. VSS. PER PT REQUEST, ADMINISTERED DILAUDID 1 MG IV Q4H PRN FOR PAIN. WILL CONTINUE TO MONITOR.
[2020-11-24] MEDS: BLOOD SUGAR DIAGNOSTIC 1 EACH STRIP IN SCH ×4 (00:53→17:45)
[2020-11-24] MEDS: MEROPENEM 1 G in IV NS 0.9% 100 ML IV SCH ×2 (03:33→15:59)
[2020-11-24] MEDS: METOCLOPRAMIDE HCL 10 MG/2 ML VIAL IV SCH ×4 (03:38→21:26)
[2020-11-24 04:00] VITALS: BP 146/93
[2020-11-24 04:37] VITALS: BP 146/93
--- NOTE | 2020-11-24 06:40 | NUR ---
SPA ATTENDANT CLOSING NOTE (115) PT IS IN BED WITH EYES CLOSED, AROUSABLE TO STIMULATION. A/O X3. PT STABLE ON ROOM AIR. NO SOB OR S/S OF RESPIRATORY DISTRESS NOTED. PT ON EXTERNAL HUMAN RESOURCES ANALYST READING SR 95. IV ACCESS IS INTACT, PATENT, AND FLUSHING WELL. PT NOTED WITH NGT IN THE RIGHT NARES, INTACT, CONNECTED TO LOW INTERMITTENT SUCTION WITH 50 ML OUTPUT. FLEXISEAL NOTED IN PLACE AND PATENT WITH 40 ML OUTPUT. JACKSON CATH IN PLACE DRAINING CLEAR YELLOW URINE WITH 1500 ML OUTPUT. ALL NEEDS HAVE BEEN MET. PAIN MANAGEMENT AND WOUND CARE ADMINISTERED PER ORDER. PT REPOSITIONED Q2H AND PRN. SAFETY PRECAUTIONS MAINTAINED AT ALL TIMES. BED IN LOWEST LOCKED POSITION, HOB ELEVATED, SIDE RAILS UP X2. CALL LIGHT AND TABLE WITHIN REACH. WILL ENDORSE TO ONCOMING NURSE FOR MERCED.
[2020-11-24 07:06] LABS: CALCIUM, SERUM 7.4 mg/dL (8.5-10.1); MAGNESIUM 1.7 mg/dL (1.8-2.4); PHOSPHORUS 1.8 mg/dL (2.5-4.9); POTASSIUM 3.2 mmol/L (3.5-5.1)
[2020-11-24 07:19] LABS: IRON, SERUM 21 ug/dl (50-175)
[2020-11-24 07:23] LABS: TOTAL IRON BINDING CAPACITY < 36 ug/dl (250-450)
[2020-11-24 07:49] LABS: BASOPHILS % (AUTO) 0.4 % (0.0-2.0); EOSINOPHILS % (AUTO) 1.1 % (0.0-6.0); HEMATOCRIT 24 % (33-45); HEMOGLOBIN 7.7 g/dL (11.5-14.8); LYMPHOCYTES # (AUTO) 2.5 K/uL (0.8-4.8); MEAN CORPUSCULAR HGB CONC 32 g/dl (31.0-36.0); MEAN CORPUSCULAR VOLUME 92 fL (82-100); MONOCYTES # (AUTO) 1.4 K/uL (0.1-1.30); MONOCYTES % (AUTO) 10.6 % (2.0-12.0); NEUTROPHILS # (AUTO) 9.1 K/uL (1.8-8.9); NEUTROPHILS % (AUTO) 68.9 % (43.0-81.0); PLATELET COUNT (AUTO) 208 K/uL (150-450); RED BLOOD CELL COUNT(AUTO) 2.59 MIL/uL (4.0-5.2); WHITE BLOOD COUNT (AUTO) 13.2 K/uL (4.3-11.0)
[2020-11-24 08:00] VITALS: BP 120/79
[2020-11-24] MEDS: PANTOPRAZOLE 40 MG VIAL IV SCH ×2 (08:00→20:44)
--- NOTE | 2020-11-24 08:00 | NUR ---
CAREER SERVICES MANAGER NOTE PATIENT IN BED ,RESTING COMFORTABLY,ON RA NO ,SOB NOTED AT THIS TIME NOTED, N G TUBE IS REMOVED ,REPORTED TO SPACE PLANNER RN TO REINSERT, ON TELE MONITOR ST 108 , WITH FLEXSEAL RECTAL TUBE IN PLACE WITH DARK LIQUID STIIL NOTED , LT UPPER ARM PICC LINE IN PLACE CONT TPN ORDERED, AND IVF ORDERED, BED IN LOWEST AND LOCKED POSITION. WILL CONT TO MONITOR
[2020-11-24] MEDS: ERYTHROMYCIN 500 MG in IV NS 0.9% 100 ML IV SCH ×3 (08:01→17:45)
--- NOTE | 2020-11-24 08:15 | NUR ---
BLOCK INSPECTOR NOTE PLACED BY RH GROOMING ASSISTANT RN N G TUBE, AWAIT FOR CHEST X RAY FOR CONFIRMATION PLACEMENT
[2020-11-24] MEDS: MULTIVITAMINS,THERAGRAN 1 UDTAB TABLET PO SCH (09:00)
[2020-11-24] MEDS: DOCUSATE SODIUM 100 MG CAPSULE PO SCH ×2 (09:00→16:18)
[2020-11-24] MEDS ORDERED: POTASSIUM PHOSPHATE MM 15 MMOL in IV NS 0.9% 250 ML IV SCH (09:00)
[2020-11-24] MEDS: ZINC SULFATE 220 MG CAPSULE PO SCH (09:00)
[2020-11-24] MEDS: ASCORBIC ACID 500 MG TABLET PO SCH (09:00)
--- NOTE | 2020-11-24 09:15 | NUR ---
WARD ASSISTANT NOTE HG 7.[address] CLAUDIA GOMES TO GIVE LOVENOX
[2020-11-24] MEDS: DAKINS HALF STRENGTH (0.25%) 480 ML BOTTLE TOP SCH (09:17)
[2020-11-24] MEDS: HYDROGEL DRESSING 90 GM TUBE TP SCH (09:17)
[2020-11-24] MEDS: Z GUARD REMEDY 2 OZ OINT TP SCH (09:18)
[2020-11-24] MEDS: ENOXAPARIN SODIUM 100 MG/ML DISP.SYRIN SQ SCH ×2 (09:20→20:46)
[2020-11-24] MEDS: Magnesium 1GM/D5W 100ML PREMIX 100 ML IV SCH ×2 (09:22→10:24)
[2020-11-24 09:30] LABS: FERRITIN 1437 ng/mL (8-388); THYROID STIMULATING HORMONE 3.354 uIU/mL (0.358-3.74)
--- NOTE | 2020-11-24 09:50 | NUR ---
TREASURY ASSOCIATE NOTE OK TO CONNECT TO N G TUBE TO LOWER INTERMITTED SUCTION PER CHEST X RAY RESULT
[2020-11-24 10:03] LABS: BAND % (MANUAL) 1 % (0.0-5.0); LYMPHOCYTES % (MANUAL) 10 % (16-48); MONOCYTES % (MANUAL) 10 % (0-11.0); NEUTROPHILS % (MANUAL) 79 (42-76)
[2020-11-24] MEDS ORDERED: POTASSIUM CL. PREMIX PERIPHER. 50 ML IV SCH (10:30)
[2020-11-24] MEDS: INSULIN REGULAR, HUMAN 100 UNIT/ML 3 ML VIAL SQ PRN (11:56)
[2020-11-24 12:00] VITALS: BP 110/87
[2020-11-24] MEDS: FAT EMULSION 20% 500 ML in PREMIX 1 EA IV SCH (12:29)
[2020-11-24] MEDS: POTASSIUM CL. PREMIX PERIPHER. 50 ML IV SCH ×4 (12:51→15:51)
[2020-11-24] MEDS ORDERED: TPN BAG #7 IV SCH (14:00)
[2020-11-24] MEDS ORDERED: SOD FERRIC GLUC 125 MG in IV NS 0.9% 100 ML IV SCH (14:00)
[2020-11-24] MEDS ORDERED: TPN BAG #8 IV SCH (15:00)
--- NOTE | 2020-11-24 15:35 | NUR ---
teletray operator note patient refusing n gtube to suction ,stated that it make her vomiting, called to dr hirsch inform that last night only 50 ml of light greenish drainage and today no drainage noted , ordered if patient wish to remove ok to remove ,order carried out
--- NOTE | 2020-11-24 15:37 | NUR ---
television announcer note c\o pain Dilaudid 1 mg ivp given, bp 113/78 saturation 96%, tx dine as ordered
[2020-11-24 16:00] VITALS: BP 138/87
[2020-11-24] MEDS ORDERED: ENOXAPARIN SODIUM 100 MG/ML DISP.SYRIN SQ SCH (16:00)
--- NOTE | 2020-11-24 16:00 | NUR ---
ELEMENTARY CLASSROOM TEACHER NOTE N G TUBE TO SUCTION REMOVED PER PATIENT REQUEST ,NO DRAINAGE NOTED, DR TAYLOR NOTIFIED
--- NOTE | 2020-11-24 18:25 | NUR ---
SAP TECHNICAL DEVELOPER NOTE PATIENT IN BED RESTING COMFORTABLY AT THI TIME, WITH JACKSON CATH TO GRAVITY WITH YELLOW COLOR URINE, WITH TPN AND LIPIDS ORDERED INFUSING ,JACKSON CATH FLUSHED WITH 40 ML ORDERED , BED IN LOWEST AND LOCKED POSITION WILL MONITOR CLOSELY
[2020-11-24] MEDS: SENNOSIDES 8.6 MG TABLET PO SCH (21:33)
[2020-11-25] VITALS: BP 142/79
[2020-11-25] MEDS: BLOOD SUGAR DIAGNOSTIC 1 EACH STRIP IN SCH ×4 (00:26→17:09)
[2020-11-25] MEDS: INSULIN REGULAR, HUMAN 100 UNIT/ML 3 ML VIAL SQ PRN ×2 (00:26→05:55)
[2020-11-25] MEDS: ONDANSETRON HCL/PF 4 MG/2 ML VIAL IV PRN (03:53)
[2020-11-25] MEDS: MEROPENEM 1 G in IV NS 0.9% 100 ML IV SCH ×2 (03:53→17:16)
[2020-11-25] MEDS: METOCLOPRAMIDE HCL 10 MG/2 ML VIAL IV SCH ×4 (03:53→21:12)
[2020-11-25] MEDS: HYDROMORPHONE 1 MG/1 ML DISP.SYRIN IV PRN ×4 (03:54→19:58)
[2020-11-25 04:00] VITALS: BP 139/82
[2020-11-25] MEDS ORDERED: TPN BAG #8 IV SCH (06:00)
--- NOTE | 2020-11-25 06:10 | NUR ---
METAL CUT OFF SAW TENDER NOTE, PATIENT IN BED, NO SIGNIFICANT CHANGE IN CONDITION DURING THE NIGHT, NO INSULIN COVERAGE AT 0000 AND 0600 ACCORDING TO SLIDING SCALE, CONTINUE ON TPN, CALLED PHARMACY FOR NEW BAG TO ADMINISTER, AWAITING FOR TPN, BED IN LOWEST AND LOCKED POSITION, WILL ENDORSE CONTINUITY OF CARE TO ONCOMING NURSE.
[2020-11-25 07:27] LABS: BASOPHILS # (AUTO) 0.1 K/uL (0.0-0.2); BASOPHILS % (AUTO) 0.5 % (0.0-2.0); EOSINOPHILS % (AUTO) 1.6 % (0.0-6.0); HEMATOCRIT 23 % (33-45); HEMOGLOBIN 7.7 g/dL (11.5-14.8); LYMPHOCYTES # (AUTO) 2.6 K/uL (0.8-4.8); MEAN CORPUSCULAR HGB CONC 34 g/dl (31.0-36.0); MEAN CORPUSCULAR VOLUME 93 fL (82-100); MONOCYTES # (AUTO) 1.2 K/uL (0.1-1.30); MONOCYTES % (AUTO) 10.3 % (2.0-12.0); NEUTROPHILS # (AUTO) 7.6 K/uL (1.8-8.9); NEUTROPHILS % (AUTO) 65.6 % (43.0-81.0); PLATELET COUNT (AUTO) 212 K/uL (150-450); RED BLOOD CELL COUNT(AUTO) 2.45 MIL/uL (4.0-5.2); WHITE BLOOD COUNT (AUTO) 11.7 K/uL (4.3-11.0)
--- NOTE | 2020-11-25 07:30 | NUR ---
RN AM NOTE RECEIVED PT IN BED, ALERT AND ORIENTED. SR HR 93 ON MONITOR. NO CHEST PAIN OR DISCOMFORT. COMPLAIN OF ABDOMINAL PAIN AND IS ON PAIN MANAGEMENT - DILAUDID 1 MG Q 4 HOURS. PT ON NPO, TPN AND LIPIDS RUNNING. ON IV D5W AT 30ML.HR. JACKSON CATH IN PLACE, DRAINING CLEAR YELLOW URINE. FLEXISEAL IN PLACE. WILL CONTINUE TO MONITOR. ALL SAFETY MEASURES IN PLACE PER PROTOCOL, CALL LIGHT WITHIN REACH, BED LOCKED IN LOWEST POSITION, SIDE RAILS UP.WILL CONTINUE TO MONITOR
[2020-11-25 07:35] LABS: CALCIUM, SERUM 7.3 mg/dL (8.5-10.1); MAGNESIUM 1.9 mg/dL (1.8-2.4); PHOSPHORUS 1.8 mg/dL (2.5-4.9); POTASSIUM 3.3 mmol/L (3.5-5.1)
[2020-11-25 08:00] VITALS: BP 146/94
[2020-11-25] MEDS: ERYTHROMYCIN 500 MG in IV NS 0.9% 100 ML IV SCH ×3 (08:44→17:16)
[2020-11-25] MEDS: MULTIVITAMINS,THERAGRAN 1 UDTAB TABLET PO SCH (09:00)
[2020-11-25] MEDS: DOCUSATE SODIUM 100 MG CAPSULE PO SCH ×2 (09:00→17:00)
[2020-11-25] MEDS: ASCORBIC ACID 500 MG TABLET PO SCH (09:00)
[2020-11-25] MEDS: ZINC SULFATE 220 MG CAPSULE PO SCH (09:00)
--- NOTE | 2020-11-25 09:30 | NUR ---
RN NOTES DUE MEDS GIVEN
[2020-11-25 10:22] LABS: BAND % (MANUAL) 6 % (0.0-5.0); LYMPHOCYTES % (MANUAL) 21 % (16-48); METAMYELOCYTES % 1 % (0-0); MONOCYTES % (MANUAL) 6 % (0-11.0); MYELOCYTES % 1 % (0-0); NEUTROPHILS % (MANUAL) 65 (42-76)
[2020-11-25] MEDS: PANTOPRAZOLE 40 MG VIAL IV SCH ×2 (10:29→20:06)
[2020-11-25] MEDS: ENOXAPARIN SODIUM 100 MG/ML DISP.SYRIN SQ SCH ×2 (10:30→20:07)
[2020-11-25] MEDS: HYDROGEL DRESSING 90 GM TUBE TP SCH (10:31)
[2020-11-25] MEDS: Z GUARD REMEDY 2 OZ OINT TP SCH (10:32)
[2020-11-25] MEDS: DAKINS HALF STRENGTH (0.25%) 480 ML BOTTLE TOP SCH (10:33)
[2020-11-25 12:00] VITALS: BP 146/87
--- NOTE | 2020-11-25 12:10 | NUR ---
RN NOTES BIANKA SPEECH THERAPIST AT BEDSIDE. PATIENT CAN NOT TOLERATE EVEN THIN LIQUIDS.
[2020-11-25] MEDS: POTASSIUM CL. PREMIX PERIPHER. 50 ML IV SCH ×3 (12:47→14:41)
[2020-11-25] MEDS ORDERED: Sodium Phosphate 30 MMOL in IV NS 0.9% 250 ML IV SCH (13:00)
[2020-11-25 16:00] VITALS: BP 143/94
--- NOTE | 2020-11-25 19:30 | NUR ---
RN NOTE RECEIVED PATIENT IN BED. A/OX 4. TOLERATING ROOM AIR. RESPIRATIONS ARE EVEN AND UNLABORED. NO S/S SOB NOTED. C/O PAIN IN ABDOMEN. EXTERNAL TELE MONITOR READS SINUS TACHYCARDIA HR 104. IN NO APPARENT DISTRESS. IV ACCESS IN RIMMA PICC LINE RUNNING TPN @60ML/HR. JACKSON CATHETER IS PRESENT, DRAINING TO GRAVITY, FLEXICAL IS PRESENT, STOOL IS LIQUID BROWN/GREEN. BED IS LOW AND LOCKED, HOB ELEVTAED IN SEMI FOWLERS, SIDE RAILS UP X2, ZENOBIA LIGHT WITHIN REACH. WILL CONTINUE TO MONITOR THROUGHOUT SHIFT.
--- NOTE | 2020-11-25 19:34 | NUR ---
RN CLOSING NOTE PT REMAINS IN BED. ABLE TO MAKE NEEDS KNOWN. NO SIGNS OF DISTRESS NOTED. CONTINUE ON TPN AND IV FLUIDS. DUE IV ATB GIVEN ORDERED. WOUND TX DONE ORDERED. RIMMA PICC LINE IN PLACE. CDI DRESSING WITH D5W INFUSING AT 30 ML/HR. SITE CLEAR. JACKSON DRAINING WELL 1100 ML OUTPUT. ALL NEEDS MET, PATIENT CONTINUES TO REFUSE TO TURN AND REPOSITION. ALL NEEDS MET FOR NOW. SAFETY MEASURES IN PLACE. ENDORSED TO NEXT SHIFT FOR MERCED.
[2020-11-25 20:00] VITALS: BP 159/90
[2020-11-25] MEDS: SENNOSIDES 8.6 MG TABLET PO SCH (21:08)
[2020-11-25] MEDS ORDERED: TPN BAG #9 IV SCH (22:00)
[2020-11-26] VITALS: BP 136/94
[2020-11-26] MEDS: BLOOD SUGAR DIAGNOSTIC 1 EACH STRIP IN SCH ×5 (00:08→23:07)
[2020-11-26] MEDS: INSULIN REGULAR, HUMAN 100 UNIT/ML 3 ML VIAL SQ PRN ×4 (00:09→23:09)
[2020-11-26 04:00] VITALS: BP 132/88
[2020-11-26] MEDS: METOCLOPRAMIDE HCL 10 MG/2 ML VIAL IV SCH ×4 (04:03→21:14)
[2020-11-26] MEDS: MEROPENEM 1 G in IV NS 0.9% 100 ML IV SCH ×2 (04:03→16:24)
[2020-11-26] MEDS: HYDROMORPHONE 1 MG/1 ML DISP.SYRIN IV PRN ×4 (04:04→21:10)
[2020-11-26 07:06] LABS: IMMUNOGLOBULIN A, SERUM 257 mg/dL (87-352); IMMUNOGLOBULIN G, SERUM 1027 mg/dL (586-1602); IMMUNOGLOBULIN M, SERUM 22 mg/dL (26-217)
[2020-11-26 07:44] LABS: CALCIUM, SERUM 7.2 mg/dL (8.5-10.1); CREATININE 0.9 mg/dL (0.6-1.3); MAGNESIUM 1.5 mg/dL (1.8-2.4); PHOSPHORUS 2.7 mg/dL (2.5-4.9); POTASSIUM 3.2 mmol/L (3.5-5.1)
[2020-11-26] MEDS: ERYTHROMYCIN 500 MG in IV NS 0.9% 100 ML IV SCH ×3 (07:57→17:43)
[2020-11-26] MEDS: ONDANSETRON HCL/PF 4 MG/2 ML VIAL IV PRN (07:58)
[2020-11-26 08:00] VITALS: BP 125/76
[2020-11-26] MEDS: PANTOPRAZOLE 40 MG VIAL IV SCH ×2 (08:00→21:10)
--- NOTE | 2020-11-26 08:05 | NUR ---
FLOOR AND WALL APPLIER LIQUID NOTE PATIENT IN BED ALL NEEDS ATTENDED, C\O NAUSEA AND VOMITING,, ON RA SATURATION 98% , O ZOFRAN 4 MG IVP GIVEN ORDERED , T 100.0 COOLING MEASURE PROVIDED, ON TELE MONITOR ST HR 110 , WITH JACKSON CATH TO GRAVITY WITH YELLOW COLOR URINE, ON NPO STATUS AT THIS TIME, RIMMA PICC LINE IN PLCE ON TPN ORDERED, BED IN LOWEST AND LOCKED POSITION, WITH FLEXISEAL RECTAL TUBE WITH LIQUID GREENISH COLOR STOOL NOTED IN BAG , WILL MONITOR
[2020-11-26] MEDS: DOCUSATE SODIUM 100 MG CAPSULE PO SCH ×2 (08:09→16:19)
[2020-11-26] MEDS: ASCORBIC ACID 500 MG TABLET PO SCH (08:09)
[2020-11-26] MEDS: MULTIVITAMINS,THERAGRAN 1 UDTAB TABLET PO SCH (08:09)
[2020-11-26] MEDS: ZINC SULFATE 220 MG CAPSULE PO SCH (08:10)
[2020-11-26] MEDS: ENOXAPARIN SODIUM 100 MG/ML DISP.SYRIN SQ SCH ×2 (08:11→21:11)
[2020-11-26] MEDS: DAKINS HALF STRENGTH (0.25%) 480 ML BOTTLE TOP SCH (08:12)
[2020-11-26] MEDS: Z GUARD REMEDY 2 OZ OINT TP SCH (08:13)
[2020-11-26] MEDS: HYDROGEL DRESSING 90 GM TUBE TP SCH (08:14)
--- NOTE | 2020-11-26 08:30 | NUR ---
CLAIM CLERK NOTE ST AT BEDSIDE DOING SWALLOW EVAL PATIENT REFUSED, FEELS VOMITING
--- NOTE | 2020-11-26 09:21 | NUR ---
JOURNEYMAN GLAZIER NOTE PER DR TAYLOR OK TO START CLEAR LIQUID DIET WILL F\U
--- NOTE | 2020-11-26 09:56 | NUR ---
PLUMBER AND TINNER NOTE PER DR RAYMUNDO OK TO DC JACKSON CATH FLUSH ,AWARE THAT NO MORE HEMATURIA
[2020-11-26] MEDS: POTASSIUM CL. PREMIX PERIPHER. 50 ML IV SCH ×4 (11:42→15:15)
[2020-11-26 12:00] VITALS: BP 134/75
--- NOTE | 2020-11-26 12:30 | NUR ---
television cameraman note feel vomiting after eat lunch
--- NOTE | 2020-11-26 13:00 | NUR ---
television tube inspector note dr hirsch notified that patient feels vomiting alter eat clear liquid diet have, stated still ok to have it will f\u
[2020-11-26] MEDS: FAT EMULSION 20% 500 ML in PREMIX 1 EA IV SCH (13:06)
[2020-11-26] MEDS ORDERED: TPN BAG #10 IV SCH (13:25)
[2020-11-26] MEDS ORDERED: ENOX100D SQ (13:56)
[2020-11-26] MEDS ORDERED: MERO1VIA23 IV (13:56)
[2020-11-26] MEDS ORDERED: TPN ADD IV (13:56)
[2020-11-26 16:00] VITALS: BP 117/80
--- NOTE | 2020-11-26 16:00 | NUR ---
telecommunications specialist note per dr hirsch discharge to snf spoke with manager case, no bed alible yet ,picture for discharge taken , tx done as ordered
[2020-11-26] MEDS: Magnesium 1GM/D5W 100ML PREMIX 100 ML IV SCH ×2 (16:24→17:16)
--- NOTE | 2020-11-26 19:02 | NUR ---
public safety telecommunicator note for covid test rapid done as ordered, cont on tpn ad ordered and lipids via lt upper arm picc line , with rectal tube in place and Mancuso cath to gravity will cont to monitor, trying to eat dinner
[2020-11-26 20:00] VITALS: BP 130/83
[2020-11-26] MEDS: SENNOSIDES 8.6 MG TABLET PO SCH (21:10)
[2020-11-27] VITALS: BP 117/85
[2020-11-27] MEDS: METOCLOPRAMIDE HCL 10 MG/2 ML VIAL IV SCH ×4 (03:35→21:12)
[2020-11-27] MEDS: MEROPENEM 1 G in IV NS 0.9% 100 ML IV SCH ×2 (03:37→16:52)
[2020-11-27] MEDS: HYDROMORPHONE 1 MG/1 ML DISP.SYRIN IV PRN ×4 (03:49→21:13)
[2020-11-27 04:00] VITALS: BP 127/77
[2020-11-27] MEDS ORDERED: TPN BAG #11 IV SCH (04:50)
[2020-11-27] MEDS: BLOOD SUGAR DIAGNOSTIC 1 EACH STRIP IN SCH ×4 (05:54→23:43)
[2020-11-27] MEDS: INSULIN REGULAR, HUMAN 100 UNIT/ML 3 ML VIAL SQ PRN ×4 (05:55→23:44)
--- NOTE | 2020-11-27 06:00 | NUR ---
RN NOTES, BLOOD SUGAR 122MG/DG AT THIS TIME, NO INSULIN ADMINISTER ACCORDING TO SLIDING SCALE.
--- NOTE | 2020-11-27 07:20 | NUR ---
RN NOTES, NO SIGNIFICANT CHANGE IN CONDITION, CONTINUE ON TPN, ON CLEAR LIQUID DIET, ADVANCE DIET TOLERATE, POSSIBLE DISCHARGE TODAY, ENDORSED TO MARPREET FOR CONTINUATION OF CARE.
[2020-11-27 07:22] LABS: BASOPHILS # (AUTO) 0.1 K/uL (0.0-0.2); BASOPHILS % (AUTO) 0.6 % (0.0-2.0); EOSINOPHILS % (AUTO) 1.6 % (0.0-6.0); HEMATOCRIT 23 % (33-45); HEMOGLOBIN 8.1 g/dL (11.5-14.8); LYMPHOCYTES # (AUTO) 2.5 K/uL (0.8-4.8); LYMPHOCYTES % (AUTO) 24.1 % (20.0-44.0); MEAN CORPUSCULAR HGB CONC 35 g/dl (31.0-36.0); MEAN CORPUSCULAR VOLUME 93 fL (82-100); MONOCYTES # (AUTO) 1.1 K/uL (0.1-1.30); MONOCYTES % (AUTO) 10.2 % (2.0-12.0); NEUTROPHILS # (AUTO) 6.6 K/uL (1.8-8.9); NEUTROPHILS % (AUTO) 63.5 % (43.0-81.0); PLATELET COUNT (AUTO) 184 K/uL (150-450); WHITE BLOOD COUNT (AUTO) 10.4 K/uL (4.3-11.0)
[2020-11-27 07:52] LABS: BILIRUBIN,DIRECT 0.1 mg/dL (0.0-0.2); BILIRUBIN,TOTAL 0.3 mg/dL (0.2-1.0); CALCIUM, SERUM 7.1 mg/dL (8.5-10.1); CREATININE 0.8 mg/dL (0.6-1.3); MAGNESIUM 1.7 mg/dL (1.8-2.4); PHOSPHORUS 1.6 mg/dL (2.5-4.9); TOTAL PROTEIN, SERUM 4.8 g/dL (6.4-8.2)
[2020-11-27 08:00] VITALS: BP 131/80
[2020-11-27 08:19] LABS: ALBUMIN 0.9 g/dL (3.4-5.0)
[2020-11-27 09:00] LABS: BAND % (MANUAL) 4 % (0.0-5.0); LYMPHOCYTES % (MANUAL) 15 % (16-48); METAMYELOCYTES % 1 % (0-0); MONOCYTES % (MANUAL) 4 % (0-11.0); MYELOCYTES % 1 % (0-0); NEUTROPHILS % (MANUAL) 75 (42-76)
[2020-11-27] MEDS: ASCORBIC ACID 500 MG TABLET PO SCH (09:00)
[2020-11-27] MEDS: MULTIVITAMINS,THERAGRAN 1 UDTAB TABLET PO SCH (09:00)
[2020-11-27] MEDS: ZINC SULFATE 220 MG CAPSULE PO SCH (09:00)
[2020-11-27] MEDS: DOCUSATE SODIUM 100 MG CAPSULE PO SCH ×2 (09:00→16:16)
[2020-11-27] MEDS: PANTOPRAZOLE 40 MG VIAL IV SCH ×2 (09:05→20:53)
[2020-11-27] MEDS: ERYTHROMYCIN 500 MG in IV NS 0.9% 100 ML IV SCH ×3 (09:06→18:13)
[2020-11-27] MEDS: ENOXAPARIN SODIUM 100 MG/ML DISP.SYRIN SQ SCH ×2 (09:11→20:57)
[2020-11-27] MEDS: HYDROGEL DRESSING 90 GM TUBE TP SCH (09:28)
[2020-11-27] MEDS: Z GUARD REMEDY 2 OZ OINT TP SCH (09:28)
[2020-11-27] MEDS: DAKINS HALF STRENGTH (0.25%) 480 ML BOTTLE TOP SCH (09:28)
[2020-11-27] MEDS: Magnesium 1GM/D5W 100ML PREMIX 100 ML IV SCH ×2 (10:23→11:59)
[2020-11-27] MEDS: POTASSIUM PHOSPHATE MM 15 MMOL in IV NS 0.9% 250 ML IV SCH ×2 (12:23→16:11)
[2020-11-27 14:07] LABS: *SPE A/G RATIO 0.5 (0.7-1.7); *SPE ALBUMIN 1.3 g/dL (2.9-4.4); *SPE ALPHA-1-GLOBULIN 0.2 g/dL (0.0-0.4); *SPE ALPHA-2-GLOBULIN 0.8 g/dL (0.4-1.0); *SPE BETA GLOBULIN 0.7 g/dL (0.7-1.3); *SPE GLOBULIN, TOTAL 2.7 g/dL (2.2-3.9); *SPE M-SPIKE 0.6 g/dL (Not Observed); *SPEGAMMA GLOBULIN 1.1 g/dL (0.4-1.8)
[2020-11-27 16:00] VITALS: BP 126/79
--- NOTE | 2020-11-27 16:18 | NUR ---
case liner dat arranged discharge for tmrw 9am,need to arrange transportation,and pt need to finish iv potassium phospahate ordered which will be done by 9pm.
[2020-11-27] MEDS: ONDANSETRON HCL/PF 4 MG/2 ML VIAL IV PRN (16:52)
--- NOTE | 2020-11-27 19:40 | NUR ---
RN CLOSING NOTE Patient is alert and oriented. Breathing even and unlabored. On room air with 02 saturation of 98%. Mancuso cath intact and hanging to gravity with urine output of 1400 cc during shift. Wound care provided. Patient on tpn at 65 cc/hour. HOB kept elevated. Call light with in reach.Endorsed to next shift for MERCED. Patient's lipids discontinued.Patient had one episode of vomiting with output of 200 cc of liquid clear. informed Dr Lora and with no new orders.
--- NOTE | 2020-11-27 19:46 | NUR ---
RN NOTE PATIENT IN BED ALERT AND ORIENTED X4. HEAD OF BED ELEVATED. ON ROOM AIR, RESPIRATIONS EVEN AND UNLABORED. DENIES ANY PAIN AT THIS TIME. WITH JACKSON CATHETER AND RECTAL TUBE, PATENT AND INTACT. LEFT UPPER ARM PICC LINE NOTED RUNNING TPN @ 65CC/HR. BED LOCKED AND IN LOWEST POSITION. CALL LIGHT WITHIN REACH. ALL NEEDS ANTICIPATED.
[2020-11-27 20:00] VITALS: BP 142/95
[2020-11-27] MEDS ORDERED: TPN BAG #12 IV SCH (20:15)
[2020-11-27] MEDS: POTASSIUM CL. PREMIX PERIPHER. 50 ML IV SCH ×2 (20:53→21:41)
[2020-11-27] MEDS: SENNOSIDES 8.6 MG TABLET PO SCH (21:12)
[2020-11-28] MEDS: MEROPENEM 1 G in IV NS 0.9% 100 ML IV SCH (03:12)
[2020-11-28] MEDS: METOCLOPRAMIDE HCL 10 MG/2 ML VIAL IV SCH (03:13)
[2020-11-28] MEDS: HYDROMORPHONE 1 MG/1 ML DISP.SYRIN IV PRN ×2 (03:13→09:06)
[2020-11-28 04:00] VITALS: BP 124/86
[2020-11-28] MEDS: BLOOD SUGAR DIAGNOSTIC 1 EACH STRIP IN SCH (06:31)
[2020-11-28] MEDS: INSULIN REGULAR, HUMAN 100 UNIT/ML 3 ML VIAL SQ PRN (06:31)
[2020-11-28 07:09] LABS: BASOPHILS % (AUTO) 0.6 % (0.0-2.0); EOSINOPHILS % (AUTO) 1.7 % (0.0-6.0); HEMATOCRIT 22 % (33-45); HEMOGLOBIN 7.2 g/dL (11.5-14.8); LYMPHOCYTES # (AUTO) 2.2 K/uL (0.8-4.8); LYMPHOCYTES % (AUTO) 24.9 % (20.0-44.0); MEAN CORPUSCULAR HGB CONC 33 g/dl (31.0-36.0); MEAN CORPUSCULAR VOLUME 92 fL (82-100); MONOCYTES # (AUTO) 0.9 K/uL (0.1-1.30); MONOCYTES % (AUTO) 9.9 % (2.0-12.0); NEUTROPHILS # (AUTO) 5.6 K/uL (1.8-8.9); NEUTROPHILS % (AUTO) 62.9 % (43.0-81.0); PLATELET COUNT (AUTO) 166 K/uL (150-450); RED BLOOD CELL COUNT(AUTO) 2.38 MIL/uL (4.0-5.2); WHITE BLOOD COUNT (AUTO) 8.9 K/uL (4.3-11.0)
--- NOTE | 2020-11-28 07:24 | NUR ---
RN NOTE PATIENT ALERT AND ORIENTED X4. HEAD OF BED ELEVATED. ON ROOM AIR, RESPIRATIONS EVEN AND UNLABORED. DENIES ANY PAIN AT THIS TIME. WITH JACKSON CATHETER AND RECTAL TUBE, PATENT AND INTACT. LEFT UPPER ARM PICC LINE NOTED RUNNING TPN @ 65CC/HR. ALL WOUND PICTURES TAKEN. NO SIGNIFICANT CHANGES DURING THIS SHIFT. BED LOCKED AND IN LOWEST POSITION. CALL LIGHT WITHIN REACH. ENDORSED TO AM SHIFT.
[2020-11-28 07:50] LABS: CALCIUM, SERUM 7.3 mg/dL (8.5-10.1); CREATININE 0.8 mg/dL (0.6-1.3); PHOSPHORUS 2.6 mg/dL (2.5-4.9); POTASSIUM 3.4 mmol/L (3.5-5.1)
[2020-11-28] MEDS: DOCUSATE SODIUM 100 MG CAPSULE PO SCH (08:27)
[2020-11-28] MEDS: ASCORBIC ACID 500 MG TABLET PO SCH (08:27)
[2020-11-28] MEDS: ENOXAPARIN SODIUM 100 MG/ML DISP.SYRIN SQ SCH (08:29)
--- NOTE | 2020-11-28 09:15 | NUR ---
UNABLE TO DO XRAY BONE SURVEY, PT BEING DISCHARGED
--- NOTE | 2020-11-28 09:47 | NUR ---
RN NOTES AM PT TRANSFERRED AUTHORIZED AND APPROVED BY TO CONTINUE CARE FOR PT AT [facility], MAIL FORWARDING SYSTEM MARKUP CLERK RECEIVED SIGNATURES AND AUTHORIZATION TO ACCEPT PT THIS MORNING , NO SOB NOTED, NO DISTRESS GIVEN PAIN MEDICATION TO HELP EASE ANY DISCOMFORT, EFFECTIVE, ON ROOM ARE AT 96%, F/C INTACT 100CC , WOUND CARE WAS PROVIDED BY RESPIRATORY THERAPY TECHNICIAN SITES ARE INTACT WITH GUAZE AND BANDAGES IN PLACE AND NOTED ALL PHOTOS TAKEN UPON ADMIT AND D/C FILED AND IN CHART, HOB ELEVATED, ONE EPISODE OF EMESIS DURING AM CARE, MD AWARE AND NO NEW ORDERS AT THIS TIME, TRANSFERED FROM BED TO [facility] TRANSFER TO EMT FROM [facility] TO AMBULANCE 3 SWING GRINDER WITH PATIENT DURING TRANSFER TO FACILITY. RN [employer] SAL[employer] MANAGER GIVEN REPORT AND ADVISED TO CALL BACK WITH ANY QUESTIONS, ALL NEEDS MET AND SAFE TRANSFER OUT AT THIS TIME. PICC LINE LEFT INTACT PATENT FLUSH EASY , TPN TO BE CONTINUED UNTIL MD D/C, NO SIGNIFICANT CHANGES WITH PT DURING OR BEFORE TRANSFER DURING AM SHIFT VS TAKEN BEFORE TRANSFER OUT NOTED: TEMP 99.0 ORAL, PULSE 106 RR - 18, 0XYGEN 98%, 140/80
[2020-11-28] MEDS ORDERED: MERO1VIA23 IV (10:29)
[2020-11-28] MEDS ORDERED: TPN BAG #13 IV SCH (11:40)
== END 2020-11-28 10:42 | DRG 710 ==
LOC: MED 11-04 20:51 → TELE-TD 11-14 23:18 → ICU 11-15 04:40 → TELE1 11-18 18:48 → MEDSG1 11-27 08:24
PROVIDERS: ADMIT Internal Medicine; ATTEND Internal Medicine
PROC: 0KBF0ZZ Excision of Right Trunk Muscle, Open Approach (ICD-10-PCS; principal; 2020-11-08)
PROC: 30233N1 Transfusion of Nonautologous Red Blood Cells into Peripheral Vein, Percutaneous Approach (ICD-10-PCS; 2020-11-14)
PROC: 0KBF0ZZ Excision of Right Trunk Muscle, Open Approach (ICD-10-PCS; 2020-11-14)
PROC: 02HV33Z Insertion of Infusion Device into Superior Vena Cava, Percutaneous Approach (ICD-10-PCS; 2020-11-16)
PROC: B548ZZA Ultrasonography of Superior Vena Cava, Guidance (ICD-10-PCS; 2020-11-16)
PROC: 02HV33Z Insertion of Infusion Device into Superior Vena Cava, Percutaneous Approach (ICD-10-PCS; 2020-11-23)
DX: A41.9 Sepsis, unspecified organism (principal); N17.0 Acute kidney failure with tubular necrosis; J69.0 Pneumonitis due to inhalation of food and vomit; E43 Unspecified severe protein-calorie malnutrition; R65.21 Severe sepsis with septic shock; R57.1 Hypovolemic shock; I95.3 Hypotension of hemodialysis; J90 Pleural effusion, not elsewhere classified; Z93.0 Tracheostomy status; L89.104 Pressure ulcer of unspecified part of back, stage 4; D68.59 Other primary thrombophilia; E11.22 Type 2 diabetes mellitus with diabetic chronic kidney disease; E66.01 Morbid (severe) obesity due to excess calories; L89.159 Pressure ulcer of sacral region, unspecified stage; B37.49 Other urogenital candidiasis; K57.90 Diverticulosis of intestine, part unspecified, without perforation or abscess without bleeding; D47.2 Monoclonal gammopathy; Z90.49 Acquired absence of other specified parts of digestive tract; Z87.39 Personal history of other diseases of the musculoskeletal system and connective tissue; Z98.890 Other specified postprocedural states; D64.9 Anemia, unspecified; Z68.39 Body mass index [BMI] 39.0-39.9, adult; Z74.09 Other reduced mobility; Z86.16 Personal history of COVID-19; Z79.01 Long term (current) use of anticoagulants; Z86.718 Personal history of other venous thrombosis and embolism; Z74.01 Bed confinement status; F17.200 Nicotine dependence, unspecified, uncomplicated; Z79.4 Long term (current) use of insulin; Z79.899 Other long term (current) drug therapy; J98.11 Atelectasis; E83.42 Hypomagnesemia; E83.39 Other disorders of phosphorus metabolism; E86.0 Dehydration; E87.0 Hyperosmolality and hypernatremia; E87.6 Hypokalemia; Z87.442 Personal history of urinary calculi; N20.0 Calculus of kidney; N26.1 Atrophy of kidney (terminal); S31.109D Unspecified open wound of abdominal wall, unspecified quadrant without penetration into peritoneal cavity, subsequent encounter; S11.90XD Unspecified open wound of unspecified part of neck, subsequent encounter; S41.102D Unspecified open wound of left upper arm, subsequent encounter; X58.XXXD Exposure to other specified factors, subsequent encounter; E11.43 Type 2 diabetes mellitus with diabetic autonomic (poly)neuropathy; K31.84 Gastroparesis; I13.11 Hypertensive heart and chronic kidney disease without heart failure, with stage 5 chronic kidney disease, or end stage renal disease; N18.6 End stage renal disease; Z99.2 Dependence on renal dialysis; R13.10 Dysphagia, unspecified; I82.C11 Acute embolism and thrombosis of right internal jugular vein; I82.A11 Acute embolism and thrombosis of right axillary vein; T82.868A Thrombosis due to vascular prosthetic devices, implants and grafts, initial encounter; Y84.8 Other medical procedures as the cause of abnormal reaction of the patient, or of later complication, without mention of misadventure at the time of the procedure; Y92.89 Other specified places as the place of occurrence of the external cause
CPT/HCPCS: 36415; 36569; 71045-TC; 74018; 74181-TC; 74246-TC; 74250-TC; 76856-TC; 80048-TC; 80053-TC; 80076-TC; 80202-TC; 81001; 82232; 82272-TC; 82728-TC; 82784; 82962-TC; 83540-TC; 83605-TC; 83690-TC; 83735-TC; 84100-TC; 84134-TC; 84155; 84165; 84443-TC; 84478-TC; 84703-TC; 85025-TC; 85027-TC; 86334; 86850-TC; 87040-TC; 87070-TC; 87081-TC; 87086-TC; 87186-TC; 92521; 92526; 92611-TC; 93971-TC; A4216; A4217; A6248; A6253; A6403; A9563; C9113; G0378; J1170; J1200; J1364; J1450; J1650; J1815; J2185; J2248; J2405; J2543; J2765; J2916; J3370; J3475; J3480; J3490; J7030; J7040; J7042; J7050; J7060; J7070; J7120; P9016; P9047; Q9963

== ENCOUNTER 2020-12-05 10:39 | Inpatient (IN) | payer OTHER ==
[~2020-12-05] VITALS: Ht 160 cm; Wt 91.6 kg
[~2020-12-05 10:39] MED LIST changes: -ALLA266C2 TP; -AMIN30LI2 PO; -ASCO-352 PO; +ENOX100D SQ; -HYDR4TAB57 PO; -LIDOCAINE HCL IM; -MEDI HONEY TD; +MERO1VIA23 IV; +TPN ADD IV
[2020-12-05 11:33] LABS: BASOPHILS # (AUTO) 0.1 K/uL (0.0-0.2); BASOPHILS % (AUTO) 1.1 % (0.0-2.0); EOSINOPHILS % (AUTO) 6.6 % (0.0-6.0); HEMATOCRIT 27 % (33-45); LYMPHOCYTES % (AUTO) 26.3 % (20.0-44.0); MEAN CORPUSCULAR HGB CONC 33 g/dl (31.0-36.0); MEAN CORPUSCULAR VOLUME 91 fL (82-100); MONOCYTES % (AUTO) 13.3 % (2.0-12.0); NEUTROPHILS # (AUTO) 4.1 K/uL (1.8-8.9); NEUTROPHILS % (AUTO) 52.7 % (43.0-81.0); PLATELET COUNT (AUTO) 300 K/uL (150-450); RED BLOOD CELL COUNT(AUTO) 2.98 MIL/uL (4.0-5.2); WHITE BLOOD COUNT (AUTO) 7.8 K/uL (4.3-11.0)
[2020-12-05 11:46] LABS: CALCIUM, SERUM 8.1 mg/dL (8.5-10.1); CARBON DIOXIDE 16 mmol/L (21-32); CHLORIDE 110 mmol/L (98-107); CREATININE 0.8 mg/dL (0.6-1.3); GLUCOSE 115 mg/dL (74-106); POTASSIUM 3.4 mmol/L (3.5-5.1); SODIUM SERUM 138 mmol/L (136-145); UREA NITROGEN, BLOOD 26 mg/dL (7-18)
[2020-12-05 11:52] LABS: ALANINE AMINOTRANSFERASE 32 U/L (12-78); ALKALINE PHOSPHATASE 664 U/L (46-116); ASPARTATE AMINOTRANSFERASE 50 U/L (15-37); BILIRUBIN,DIRECT 0.1 mg/dL (0.0-0.2); BILIRUBIN,TOTAL 0.2 mg/dL (0.2-1.0)
[2020-12-05] MEDS ORDERED: ENOX40DI SQ (12:02)
[2020-12-05] MEDS ORDERED: FERR325T28 PO (12:02)
[2020-12-05] MEDS ORDERED: TPN (12:02)
--- NOTE | 2020-12-05 12:13 | NUR ---
ASSUMED CARE. BIB PA FROM CARE FACILITY FOR LOW H/H (7.6/23.9) AND MULTIPLE WOUNDS IN ABD & BACK. PT ASLEEP, WILL OPEN EYES WITH VERBAL STIMULI. PT WON'T ANSWER BACK. RR EVEN & UNLABORED. NAD NOTED AT THIS TIME. WILL CONT TO MONITOR.
[2020-12-05] MEDS ORDERED: IV NS 0.9% 500 ML BAG IV ONE (12:30)
[2020-12-05] MEDS ORDERED: PIPERACILLIN /TAZOBACTAM 3.375 G in IV D5W 50 ML IV ONE (12:30)
[2020-12-05] MEDS ORDERED: VANCOMYCIN 1 GM in IV D5W 250 ML IV ONE (12:30)
--- NOTE | 2020-12-05 12:36 | NUR ---
PAGED [facility].
--- NOTE | 2020-12-05 12:54 | NUR ---
MEDICATED PER ERMD ORDER, PT SHELBY WELL.
[2020-12-05] MEDS ORDERED: MAGNESIUM HYDROXIDE 30 ML UDC PO PRN ×2 (13:00→15:15)
[2020-12-05] MEDS ORDERED: Z GUARD REMEDY 2 OZ OINT TP PRN ×2 (13:00→15:15)
[2020-12-05] MEDS ORDERED: MORPHINE SULFATE INJ 2 MG/ML DISP.SYRIN IV PRN (13:00)
[2020-12-05] MEDS ORDERED: MAG HYDROX/AL HYDROX/SIMETH 30 ML UDC PO PRN ×2 (13:00→15:15)
[2020-12-05] MEDS ORDERED: PANTOPRAZOLE 40 MG VIAL IV SCH (13:00)
[2020-12-05] MEDS ORDERED: ACETAMINOPHEN 325 MG TABLET PO PRN ×2 (13:00→15:15)
--- NOTE | 2020-12-05 14:49 | NUR ---
NURSING SUP GAVE TELE BED 106.
[2020-12-05] MEDS ORDERED: ONDANSETRON HCL/PF 4 MG/2 ML VIAL ONE (14:59)
[2020-12-05] MEDS: ONDANSETRON HCL/PF 4 MG/2 ML VIAL IVP PRN (15:01)
--- NOTE | 2020-12-05 15:02 | NUR ---
MEDICATED FOR N/V, PT SHELBY WELL.
--- NOTE | 2020-12-05 15:13 | NUR ---
REPORT GIVEN TO JULIO BARBOSA FOR MERCED
--- NOTE | 2020-12-05 15:40 | NUR ---
TELE TD RN NOTE ADMITTED THIS PATIENT FROM ER, DX ANEMIA, NON HEALING WOUND. ALERT AND ORIENTED X 4, M[place]K SPEAKING, LITTLE SCOTTISH, ON ROOM AIR, RESPIRATION UNLABORED, SATTING 98 %. ST HR 116 ON MONITOR. DENIES CHEST PAIN OR DISCOMFORT. COMPLAIN OF ABDOMINAL PAIN , 8/10 SCALE, WILL ADMINISTER PAIN MEDICATION ORDERED. PT ON NPO, WITH RIMMA PICC LINE, FLUSHES WELL, CDI DRESSING, JACKSON CATH IN PLACE, DRAINING CLEAR YELLOW URINE. FLEXISEAL IN PLACE. UNIT ORIENTATION AND USE OF CALL LIGHT DONE. WILL CONTINUE TO MONITOR. ALL SAFETY MEASURES IN PLACE PER PROTOCOL, BED LOCKED IN LOWEST POSITION, SIDE RAILS UP.WILL CONTINUE TO MONITOR Addendum: 12/06/20 at 1033 by HUDSON RUBALCAVA RN ADDENDUM SEE NURSING NOTES FOR SKIN ISSUES. PHOTOS TAKEN AND PLACED INSIDE CHART.
--- NOTE | 2020-12-05 15:45 | NUR ---
RN NOTES PICTURES OF SKIN ISSUES TAKEN AND PLACED INSIDE THE CHART.
[2020-12-05 16:00] VITALS: BP 90/60
[2020-12-05] MEDS: MORPHINE SULFATE INJ 2 MG/ML DISP.SYRIN IV PRN (17:44)
[2020-12-05] MEDS: ALBUMIN 25% 25 GM in PREMIX 1 EA IV SCH ×2 (18:00→18:01)
--- NOTE | 2020-12-05 19:32 | NUR ---
RN CLOSING NOTE PT IN BED, RESTING, ABLE TO MAKE NEEDS KNOWN. NO SIGNS OF DISTRESS NOTED. ALL NEEDS MET, PM CARE AND WOUND CARE DONE EARLIER. PATIENT TO REFUSE TO TURN AND REPOSITION. PLACED ON CLEAR LIQUID DIET. HOB ELEVATED. ALL NEEDS MET FOR NOW. SAFETY MEASURES IN PLACE. ENDORSED TO NEXT SHIFT FOR MERCED.
[2020-12-05 20:00] VITALS: BP 90/57
--- NOTE | 2020-12-05 20:00 | NUR ---
JAMES RN NOTES RECEIVED PT IN BED, RESTING, ABLE TO MAKE NEEDS KNOWN. NO SIGNS OF DISTRESS NOTED. V/S STABLE AFEBRILE , A PATIENT TO REFUSE TO TURN AND REPOSITION. ON CLEAR LIQUID DIET. HOB ELEVATED. ALL NEEDS MET FOR NOW. SAFETY MEASURES IN PLACE. WILL CONTINUE TO MONITOR PTS.
[2020-12-05 21:38] LABS: HEMOGLOBIN 6.4 g/dL (11.5-14.8)
--- NOTE | 2020-12-05 21:55 | NUR ---
chris rn notes Received critical result hgb 6.4 hct 19 relayed to Wool Supplier Nikolas with order to give 1 unit of prbc .order noted and carried out.
[2020-12-06] VITALS (10 sets, daily range): BP systolic 90–126; BP diastolic 56–84
--- NOTE | 2020-12-06 01:23 | NUR ---
Pts started on 1 unit prbc as ordered ,v/s stable afebrile , no adverse side effect noted will continue to monitor
--- NOTE | 2020-12-06 04:54 | NUR ---
chris rn notes 1 unit of prbc completed at 4am no adverse side effect noted.
[2020-12-06] MEDS: ALBUMIN 25% 25 GM in PREMIX 1 EA IV SCH (05:44)
[2020-12-06] MEDS: MORPHINE SULFATE INJ 2 MG/ML DISP.SYRIN IV PRN ×2 (05:50→16:48)
[2020-12-06] MEDS: ONDANSETRON HCL/PF 4 MG/2 ML VIAL IVP PRN (05:51)
--- NOTE | 2020-12-06 07:12 | NUR ---
RN NOTE PATIENT OBSERVED IN BED AWAKE, ALERT AND ORIENTED X3, BREATHING EVEN AND UNLABORED, ON ROOM AIR O2 SAT OF 97%, ON TELE MONITOR SR OF 92, FOR WOUND CONSULT FOR ABDOMINAL WOUND AND RIGHT BACK WOUND, RIMMA PICC PATENT FLUSHING WELL, JACKSON CATHETER DRAINING WELL NO HEMATURIA NOTED. CALL LIGHT WITHIN REACH, BED WHEELS LOCK, BED ALARM ON, WILL CONTINUE TO MONITOR PATIENT.
[2020-12-06 07:17] LABS: BASOPHILS # (AUTO) 0.1 K/uL (0.0-0.2); BASOPHILS % (AUTO) 0.7 % (0.0-2.0); EOSINOPHILS % (AUTO) 6.2 % (0.0-6.0); HEMATOCRIT 23 % (33-45); HEMOGLOBIN 7.7 g/dL (11.5-14.8); LYMPHOCYTES # (AUTO) 1.7 K/uL (0.8-4.8); MEAN CORPUSCULAR HGB CONC 33 g/dl (31.0-36.0); MEAN CORPUSCULAR VOLUME 92 fL (82-100); MONOCYTES # (AUTO) 0.8 K/uL (0.1-1.30); MONOCYTES % (AUTO) 10.5 % (2.0-12.0); NEUTROPHILS # (AUTO) 4.3 K/uL (1.8-8.9); NEUTROPHILS % (AUTO) 58.6 % (43.0-81.0); PLATELET COUNT (AUTO) 297 K/uL (150-450); RED BLOOD CELL COUNT(AUTO) 2.54 MIL/uL (4.0-5.2); WHITE BLOOD COUNT (AUTO) 7.3 K/uL (4.3-11.0)
--- NOTE | 2020-12-06 07:30 | NUR ---
chris rn notes Pts in bed awake , remains on r/a sating 96% no sob no distress noted am wound care done , will endorse to rn day shift for continuity of care.
[2020-12-06 08:52] LABS: BILIRUBIN,TOTAL 0.4 mg/dL (0.2-1.0); CALCIUM, SERUM 8.3 mg/dL (8.5-10.1); CREATININE 0.9 mg/dL (0.6-1.3); POTASSIUM 3.9 mmol/L (3.5-5.1); TOTAL PROTEIN, SERUM 5.2 g/dL (6.4-8.2)
[2020-12-06] MEDS: PANTOPRAZOLE 40 MG VIAL IV SCH (09:08)
[2020-12-06 09:46] LABS: BAND % (MANUAL) 10 % (0.0-5.0); EOSINOPHILS % (MANUAL) 2 % (0-4); LYMPHOCYTES % (MANUAL) 19 % (16-48); MONOCYTES % (MANUAL) 11 % (0-11.0); MYELOCYTES % 2 % (0-0); NEUTROPHILS % (MANUAL) 56 (42-76)
--- NOTE | 2020-12-06 10:18 | NUR ---
WOUND CARE CONSULT: REVIEWED CHART, NURSING DOCUMENTATION AND PHOTOS WHICH INDICATE MULTIPLE WOUNDS, PRESENT ON ADMISSION. DR BENJI GLORIA CALLED FOR SURGICAL CONSULT REQUEST. RECOMMENDATIONS MADE FOR SKIN PROTECTION AND WOUND CARE. DISCUSSED WITH NURSING STAFF. PT IS ON ARVADA ISOFLEX LOW AIRLOSS BED. MD IN AGREEMENT WITH PLAN OF CARE.
[2020-12-06] MEDS ORDERED: MAGNESIUM HYDROXIDE 30 ML UDC PO PRN (11:00)
[2020-12-06] MEDS ORDERED: ONDANSETRON 4 MG TAB.RAPDIS PO PRN (11:00)
[2020-12-06] MEDS ORDERED: NA PHOS,M-B/NA PHOS,DI-BA 1 EA ENEMA RC PRN (11:00)
[2020-12-06] MEDS ORDERED: HYDROCODONE/APAP 10/325MG TABLET PO PRN (11:00)
[2020-12-06] MEDS ORDERED: DEXTROSE 50%-WATER 50 ML DISP.SYRIN IV PRN (11:00)
[2020-12-06] MEDS: MEROPENEM 1 G in IV NS 0.9% 100 ML IV SCH ×2 (12:08→23:55)
[2020-12-06] MEDS: DAKINS QUARTER STRENGTH (0.125%) 480 ML BOTTLE TOP SCH (12:08)
[2020-12-06] MEDS: BLOOD SUGAR DIAGNOSTIC 1 EACH STRIP VI SCH ×3 (12:17→22:04)
[2020-12-06] MEDS: INSULIN REGULAR, HUMAN 100 UNIT/ML 3 ML VIAL SQ PRN ×2 (12:18→16:46)
[2020-12-06] MEDS: ACIDOPHILUS/BULGARICUS 1 EACH TAB.CHEW PO SCH ×2 (12:18→16:42)
[2020-12-06 12:33] LABS: HEMOGLOBIN 7.5 g/dL (11.5-14.8)
[2020-12-06] MEDS: METFORMIN 500 MG TABLET PO SCH (16:42)
[2020-12-06] MEDS: DOCUSATE SODIUM 100 MG CAPSULE PO SCH (16:42)
--- NOTE | 2020-12-06 18:58 | NUR ---
RN NOTE PATIENT OBSERVED IN BED AWAKE, ALERT AND ORIENTED X3, BREATHING EVEN AND UNLABORED, ON ROOM AIR O2 SAT OF 98%, ON TELE MONITOR SR OF 72, WOUND TREATMENT DONE ORDERED, GAVE PAIN MEDICATION PRIOR TO WOUND TREATMENT, RIMMA PICC PATENT FLUSHING WELL, JACKSON CATHETER DRAINING WELL NO HEMATURIA NOTED. CALL LIGHT WITHIN REACH, BED WHEELS LOCK, BED ALARM ON, WILL CONTINUE TO MONITOR PATIENT. WILL ENDORSE TO NOC SHIFT
--- NOTE | 2020-12-06 19:30 | NUR ---
RN OPENING NOTES: RECEIVED COMORAN SPEAKING PT A/OX3-4 IN BED RESTING COMFORTABLY. PATIENT IN NO S/SX OF ACUTE DISTRESS AT THIS TIME. NO SOB NOTED. PATIENT'S BREATHING IS EVEN AND UNLABORED. PATIENT IS ON ROOM AIR; TOLERATING WELL WITH 02 SA OF 100% AT THE TIME OF RECEIVED. PATIENT ON TELE MONITORING READING SINUS RHYTHM HR IS @80s AT THE TIME OF RECEIVED. PATIENT ON CLEAR LIQUID DIET; TOLERATES WELL. NOTED IV SITE ON L UA PICC LINE ; PATENT, INTACT AND FLUSHING WELL; NO S/S OF INFECTION OR INFILTRATION. JACKSON CATH IN PLACE, MINIMAL URINE OUTPUT NOTED.WITH FLEXISEAL SECURED AND INTACT DRAINING SMALL AMOUNT OF SOFT BROWN OUTPUT. SAFETY MEASURES HAVE BEEN PROVIDED AND IMPLEMENTED. PATIENT BED ALARM IS ON. HEAD OF BED ELEVATED. BED IS LOCKED, IN LOWEST POSITION AND SIDE RAILS UP. CALL LIGHT WITHIN REACH OF THE PATIENT. APPLICABLE ISOLATION PRECAUTIONS IN PLACE. WILL CONTINUE TO MONITOR AND REASSESS FOR ANY CHANGES AND WILL CARRY OUT ANY ONGOING AND ACTIVE MD ORDER.
[2020-12-06 20:57] LABS: HEMOGLOBIN 8.3 g/dL (11.5-14.8)
[2020-12-06] MEDS ORDERED: MEROPENEM 1 G VIAL IV SCH (21:00)
[2020-12-06] MEDS: MORPHINE SULFATE IR 15 MG TABLET PO SCH (21:52)
[2020-12-06] MEDS: SENNOSIDES 8.6 MG TABLET PO SCH (21:53)
[2020-12-06] MEDS: ENOXAPARIN SODIUM 40 MG/0.4 ML DISP.SYRIN SQ SCH (21:53)
[2020-12-06] MEDS: *INSULIN REGULAR(HUMULIN R)HUM 100 UNIT/ML VIAL SQ PRN (22:04)
--- NOTE | 2020-12-06 23:00 | NUR ---
RN NOTES NO CHANGE IN PATIENT CONDITION AT THIS TIME PATIENT VITALS STABLE, NO SIGNS OF ACUTE RESPIRATORY DISTRESS. CARPENTER PACKING MADE AWARE. WILL CONTINUE TO MONITOR AND REASSESS FOR ANY CHANGES THROUGHOUT THE SHIFT.
[2020-12-07] VITALS: BP 103/71
[2020-12-07 04:00] VITALS: BP 116/74
--- NOTE | 2020-12-07 04:00 | NUR ---
RN NOTES NO NOTED CHANGES IN PATIENT CONDITION AT THIS TIME; PATIENT VITALS STABLE, NO SIGNS OF ACUTE RESPIRATORY DISTRESS. AM PATIENT CARE RENDERED. AIRPLANE TESTER MADE AWARE. WILL CONTINUE TO MONITOR AND REASSESS FOR ANY CHANGES THROUGHOUT THE SHIFT.
[2020-12-07] MEDS: MORPHINE SULFATE INJ 2 MG/ML DISP.SYRIN IV PRN ×2 (04:27→15:22)
[2020-12-07] MEDS: ONDANSETRON HCL/PF 4 MG/2 ML VIAL IVP PRN (04:28)
--- NOTE | 2020-12-07 05:16 | NUR ---
RN NOTES INFORMED BRITTA MENDEZ REGARDING BLOOD C RESULT: GRAM + COCCI IN 2 BOTTLES. INFORMED BRITTA MENDEZ THAT PT CURRENTLY ON ABX, NO NEW ORDERS GIVEN. INTERIOR DESIGN INSTRUCTOR MADE AWARE.
[2020-12-07 06:19] LABS: BASOPHILS # (AUTO) 0.1 K/uL (0.0-0.2); BASOPHILS % (AUTO) 0.9 % (0.0-2.0); EOSINOPHILS % (AUTO) 6.9 % (0.0-6.0); HEMATOCRIT 25 % (33-45); HEMOGLOBIN 8.3 g/dL (11.5-14.8); LYMPHOCYTES # (AUTO) 1.4 K/uL (0.8-4.8); LYMPHOCYTES % (AUTO) 22.1 % (20.0-44.0); MEAN CORPUSCULAR HGB CONC 33 g/dl (31.0-36.0); MEAN CORPUSCULAR VOLUME 92 fL (82-100); MONOCYTES # (AUTO) 0.9 K/uL (0.1-1.30); MONOCYTES % (AUTO) 14.8 % (2.0-12.0); NEUTROPHILS # (AUTO) 3.5 K/uL (1.8-8.9); NEUTROPHILS % (AUTO) 55.3 % (43.0-81.0); PLATELET COUNT (AUTO) 344 K/uL (150-450); RED BLOOD CELL COUNT(AUTO) 2.76 MIL/uL (4.0-5.2); WHITE BLOOD COUNT (AUTO) 6.4 K/uL (4.3-11.0)
[2020-12-07 06:35] LABS: ALBUMIN 1.7 g/dL (3.4-5.0); BILIRUBIN,TOTAL 0.3 mg/dL (0.2-1.0); CALCIUM, SERUM 8.4 mg/dL (8.5-10.1); MAGNESIUM 1.7 mg/dL (1.8-2.4); PHOSPHORUS 3.1 mg/dL (2.5-4.9); POTASSIUM 3.3 mmol/L (3.5-5.1); TOTAL PROTEIN, SERUM 5.1 g/dL (6.4-8.2)
--- NOTE | 2020-12-07 06:58 | NUR ---
RN CLOSING NOTE: PATIENT REMAINS IN ROOM IN NO SIGNS OF RESPIRATORY DISTRESS, PATIENT STILL ON ROOM AIR ;TOLERATING WELL SATURATING @ >95% SP02. SAFETY MEASURES IMPLEMENTED, BED IN LOWEST POSITION, LOCKED, SIDE RAILS UP, CALL LIGHT WITHIN REACH. ALL NEEDS AND ORDERS ADDRESSED DURING THE SHIFT. IV ACCESS MAINTAINED INTACT, SECURED AND FLUSHING WELL. ALL DUE MEDS GIVEN ORDERED & SCHEDULED ; PATIENT TOLERATED WELL. PATIENT KEPT CLEAN AND COMFORTABLE WITHIN THE SHIFT. PATIENT ENDORSED TO INCOMING SHIFT RN WITH STABLE VITAL SIGN AND FOR CONTINUITY OF CARE.
--- NOTE | 2020-12-07 07:28 | NUR ---
RN NOTE PATIENT OBSERVED IN BED AWAKE, ALERT AND ORIENTED X3, BREATHING EVEN AND UNLABORED, ON ROOM AIR O2 SAT OF 97%, ON TELE MONITOR SR OF 97, RIMMA PICC PATENT FLUSHING WELL, JACKSON CATHETER DRAINING WELL NO HEMATURIA NOTED . AFEBRILE AT THIS TIME. CALL LIGHT WITHIN REACH, BED WHEELS LOCK, BED ALARM ON, WILL CONTINUE TO MONITOR PATIENT.
[2020-12-07] MEDS: BLOOD SUGAR DIAGNOSTIC 1 EACH STRIP VI SCH ×4 (07:52→21:49)
[2020-12-07] MEDS: INSULIN REGULAR, HUMAN 100 UNIT/ML 3 ML VIAL SQ PRN ×3 (07:53→16:30)
[2020-12-07 08:00] VITALS: BP 106/71
[2020-12-07] MEDS ORDERED: POTASSIUM CHLORIDE 20 MEQ TAB.PRT.SR PO ONE (09:00)
[2020-12-07] MEDS: ACIDOPHILUS/BULGARICUS 1 EACH TAB.CHEW PO SCH ×3 (09:18→16:11)
[2020-12-07] MEDS: FERROUS SULFATE (325 MG) 325 MG/TAB TABLET PO SCH (09:18)
[2020-12-07] MEDS: PANTOPRAZOLE 40 MG VIAL IV SCH (09:18)
[2020-12-07] MEDS: DOCUSATE SODIUM 100 MG CAPSULE PO SCH ×2 (09:19→16:11)
[2020-12-07] MEDS: METFORMIN 500 MG TABLET PO SCH ×2 (09:19→16:11)
[2020-12-07] MEDS: MORPHINE SULFATE IR 15 MG TABLET PO SCH ×2 (09:19→21:31)
[2020-12-07] MEDS: MULTIVITAMINS,THERAGRAN 1 UDTAB TABLET PO SCH (09:19)
[2020-12-07] MEDS: ZINC SULFATE 220 MG CAPSULE PO SCH (09:19)
[2020-12-07] MEDS ORDERED: Magnesium 1GM/D5W 100ML PREMIX 100 ML IV SCH (09:30)
--- NOTE | 2020-12-07 09:30 | NUR ---
RN NOTE DR. MARROQUIN NOTIFIED PATIENT POTASSIUM OF 3.3, 20 MEQ KDUR PO GIVEN ORDERED.
[2020-12-07] MEDS: DAKINS QUARTER STRENGTH (0.125%) 480 ML BOTTLE TOP SCH (09:36)
[2020-12-07] MEDS: NEOMY SULF/BACITRAC ZN/POLY 15 GM TUBE TP SCH (09:38)
--- NOTE | 2020-12-07 11:16 | NUR ---
RN NOTE SEEN BY SHAE ROBERT, AWARE OF PATIENT CURRENT CONDITION. ORDERS NOTED AND CARRIED OUT.
[2020-12-07] MEDS: IV LR 1000 ML 1,000 ML IV SCH (11:36)
[2020-12-07] MEDS: MEROPENEM 1 G in IV NS 0.9% 100 ML IV SCH (12:23)
[2020-12-07 13:18] VITALS: BP 113/72
[2020-12-07 14:59] LABS: HEMOGLOBIN 8.5 g/dL (11.5-14.8)
[2020-12-07] MEDS: VANCOMYCIN 1 GM in IV D5W 250 ML IV SCH (15:25)
[2020-12-07 16:00] VITALS: BP 113/72
--- NOTE | 2020-12-07 18:43 | NUR ---
RN NOTE PATIENT OBSERVED IN BED AWAKE, ALERT AND ORIENTED X4, BREATHING EVEN AND UNLABORED, ON ROOM AIR O2 SAT OF 97%, CLEAR LIQUID DIET TOLERATING WELL, ON TELE MONITOR SINUS TACHYCARDIA OF 101, RIMMA PICC PATENT FLUSHING WELL IVFLUID HYDRATION LR @ 75 CC/HR, JACKSON CATHETER DRAINING WELL NO HEMATURIA NOTED, RECTAL TUBE INTACT . AFEBRILE AT THIS TIME. CALL LIGHT WITHIN REACH, BED WHEELS LOCK, BED ALARM ON, WILL CONTINUE TO MONITOR PATIENT.
--- NOTE | 2020-12-07 19:30 | NUR ---
RN OPENING NOTES: RECEIVED PT A/OX3-4 IN BED RESTING COMFORTABLY. PATIENT IN NO S/SX OF ACUTE DISTRESS AT THIS TIME. NO SOB NOTED. PATIENT'S BREATHING IS EVEN AND UNLABORED. PATIENT IS ON ROOM AIR; TOLERATING WELL WITH 02 SA OF 100% AT THE TIME OF RECEIVED. PATIENT ON TELE MONITORING READING SINUS RHYTHM HR IS @90s AT THE TIME OF RECEIVED. PATIENT ON CLEAR LIQUID DIET; TOLERATES WELL. NOTED IV SITE ON L UA PICC LINE ; PATENT, INTACT AND FLUSHING WELL; NO S/S OF INFECTION OR INFILTRATION. JACKSON CATH IN PLACE, MINIMAL URINE OUTPUT NOTED.WITH FLEXISEAL SECURED AND INTACT DRAINING SMALL AMOUNT OF SOFT BROWN OUTPUT. SAFETY MEASURES HAVE BEEN PROVIDED AND IMPLEMENTED. PATIENT BED ALARM IS ON. HEAD OF BED ELEVATED. BED IS LOCKED, IN LOWEST POSITION AND SIDE RAILS UP. CALL LIGHT WITHIN REACH OF THE PATIENT. APPLICABLE ISOLATION PRECAUTIONS IN PLACE. WILL CONTINUE TO MONITOR AND REASSESS FOR ANY CHANGES AND WILL CARRY OUT ANY ONGOING AND ACTIVE MD ORDER.
[2020-12-07 20:00] VITALS: BP 129/89
[2020-12-07 20:29] LABS: HEMOGLOBIN 8.3 g/dL (11.5-14.8)
[2020-12-07] MEDS: SENNOSIDES 8.6 MG TABLET PO SCH (21:31)
[2020-12-07] MEDS: ENOXAPARIN SODIUM 40 MG/0.4 ML DISP.SYRIN SQ SCH (21:32)
[2020-12-07] MEDS: *INSULIN REGULAR(HUMULIN R)HUM 100 UNIT/ML VIAL SQ PRN (21:50)
--- NOTE | 2020-12-07 23:00 | NUR ---
RN NOTES NO CHANGE IN PATIENT CONDITION AT THIS TIME PATIENT VITALS STABLE, NO SIGNS OF ACUTE RESPIRATORY DISTRESS. FINANCE DIRECTOR MADE AWARE. WILL CONTINUE TO MONITOR AND REASSESS FOR ANY CHANGES THROUGHOUT THE SHIFT.
[2020-12-08] VITALS: BP 109/73
[2020-12-08] MEDS: IV LR 1000 ML 1,000 ML IV SCH
[2020-12-08] MEDS: MEROPENEM 1 G in IV NS 0.9% 100 ML IV SCH ×2 (00:03→12:07)
[2020-12-08] MEDS: VANCOMYCIN 1 GM in IV D5W 250 ML IV SCH ×2 (03:00→15:00)
[2020-12-08] MEDS: MORPHINE SULFATE INJ 2 MG/ML DISP.SYRIN IV PRN (03:05)
[2020-12-08 04:00] VITALS: BP 115/69
--- NOTE | 2020-12-08 04:00 | NUR ---
RN NOTES NO NOTED CHANGES IN PATIENT CONDITION AT THIS TIME; PATIENT VITALS STABLE, NO SIGNS OF ACUTE RESPIRATORY DISTRESS. AM PATIENT CARE RENDERED. GASOLINE ATTENDANT MADE AWARE. WILL CONTINUE TO MONITOR AND REASSESS FOR ANY CHANGES THROUGHOUT THE SHIFT.
--- NOTE | 2020-12-08 04:00 | NUR ---
RN NOTES NO NOTED CHANGES IN PATIENT CONDITION AT THIS TIME; PATIENT VITALS STABLE, NO SIGNS OF ACUTE RESPIRATORY DISTRESS. AM PATIENT CARE RENDERED. PURCHASING ASSISTANT MADE AWARE. WILL CONTINUE TO MONITOR AND REASSESS FOR ANY CHANGES THROUGHOUT THE SHIFT.
[2020-12-08 04:59] LABS: HEMOGLOBIN 7.9 g/dL (11.5-14.8)
[2020-12-08 05:15] LABS: CALCIUM, SERUM 7.8 mg/dL (8.5-10.1); POTASSIUM 3.5 mmol/L (3.5-5.1)
[2020-12-08 08:00] VITALS: BP 117/79
--- NOTE | 2020-12-08 08:00 | NUR ---
RECEIVED PT A/OX3-4 IN BED RESTING COMFORTABLY. PATIENT IN NO S/SX OF ACUTE DISTRESS AT THIS TIME. NO SOB NOTED. PATIENT'S BREATHING IS EVEN AND UNLABORED. PATIENT IS ON ROOM AIR; TOLERATING WELL WITH 02 SA OF 100% AT THE TIME OF RECEIVED. PATIENT ON TELE MONITORING READING SINUS TACH HR IS 106 AT THE TIME OF RECEIVED. PATIENT ON CLEAR LIQUID DIET; TOLERATES WELL. NOTED IV SITE ON L UA PICC LINE ; PATENT, INTACT AND FLUSHING WELL; NO S/S OF INFECTION OR INFILTRATION. JACKSON CATH IN PLACE, MINIMAL URINE OUTPUT NOTED.WITH FLEXISEAL SECURED AND INTACT DRAINING SMALL AMOUNT OF SOFT BROWN OUTPUT. SAFETY MEASURES HAVE BEEN PROVIDED AND IMPLEMENTED. PATIENT BED ALARM IS ON. HEAD OF BED ELEVATED. BED IS LOCKED, IN LOWEST POSITION AND SIDE RAILS UP. CALL LIGHT WITHIN REACH OF THE PATIENT. CALL LIGHT WITH IN REACH MADE PATIENT COMFORTABLE
[2020-12-08] MEDS: BLOOD SUGAR DIAGNOSTIC 1 EACH STRIP VI SCH ×4 (09:00→21:33)
[2020-12-08] MEDS: DOCUSATE SODIUM 100 MG CAPSULE PO SCH ×2 (09:04→17:00)
[2020-12-08] MEDS: FERROUS SULFATE (325 MG) 325 MG/TAB TABLET PO SCH (09:04)
[2020-12-08] MEDS: ZINC SULFATE 220 MG CAPSULE PO SCH (09:05)
[2020-12-08] MEDS: METFORMIN 500 MG TABLET PO SCH ×2 (09:05→17:00)
[2020-12-08] MEDS: PANTOPRAZOLE 40 MG/PACK PACK PO SCH (09:06)
[2020-12-08] MEDS: ACIDOPHILUS/BULGARICUS 1 EACH TAB.CHEW PO SCH ×3 (09:06→17:00)
[2020-12-08] MEDS: MORPHINE SULFATE IR 15 MG TABLET PO SCH ×2 (09:07→20:50)
[2020-12-08] MEDS: MULTIVITAMINS,THERAGRAN 1 UDTAB TABLET PO SCH (09:08)
[2020-12-08] MEDS: DAKINS QUARTER STRENGTH (0.125%) 480 ML BOTTLE TOP SCH (09:10)
[2020-12-08] MEDS: NEOMY SULF/BACITRAC ZN/POLY 15 GM TUBE TP SCH (09:11)
[2020-12-08 09:48] LABS: PHOSPHORUS 2.3 mg/dL (2.5-4.9)
[2020-12-08] MEDS: IV 1/2NS 1000 ML 1,000 ML IV PRN ×2 (10:55→22:33)
--- NOTE | 2020-12-08 11:26 | NUR ---
lactic acid 5.[address] Dr [address] Johnson was notified and ivf increased to at 150ml/ hr
[2020-12-08 12:00] VITALS: BP 118/78
--- NOTE | 2020-12-08 12:38 | NUR ---
consent signed for CAT OF abdomen and pelvis with and with out contrast patient signed with chadian translater and was notified to tel # [phone] consent signed with chadian translater x ray was notified re; consent will pick it up when ready
[2020-12-08] MEDS: ENSURE CLEAR 237 ML LIQUID (MIX BERRY) PO SCH ×2 (13:30→17:00)
--- NOTE | 2020-12-08 14:15 | NUR ---
no acute distress noted at this time
--- NOTE | 2020-12-08 14:40 | NUR ---
vancomycin trough level was 28 will hold vancomycin todays dose per protocol pharmacy notified
[2020-12-08] MEDS ORDERED: IOHEXOL-300 100 ML VIAL IV ONE (14:44)
[2020-12-08] MEDS ORDERED: IV NS 0.9% 250 ML IV ONE (14:45)
[2020-12-08] MEDS: ONDANSETRON HCL/PF 4 MG/2 ML VIAL IVP PRN (14:59)
--- NOTE | 2020-12-08 15:02 | NUR ---
c/o nausea medicated with zofran 4mg ivp as ordered
--- NOTE | 2020-12-08 15:06 | NUR ---
TO CT SCAN PER BED FOR CT OF ABDOMEN AND PELVIS
--- NOTE | 2020-12-08 15:30 | NUR ---
patient came back from C SCAN MADE PATIENT COMFORTABLE
[2020-12-08 16:00] VITALS: BP_SYST 101; BP_SYST 112; BP_DIAS 69
--- NOTE | 2020-12-08 16:00 | NUR ---
vitals taken and recorded will continue to assess and evaluate
--- NOTE | 2020-12-08 18:00 | NUR ---
condition unchanged from previous assessment will continue to assess and evaluate iv infusing well with no signs of redness or swelling noted
--- NOTE | 2020-12-08 19:20 | NUR ---
RN NOTE RECEIVED PATIENT IN BED ALERT ORIENTED X4 ON ROOM AIR O2:99% IV SITE IS ON LEFT UPPER ARM PICC LINE INTACT PATENT IS ON IV HYDRATION 1/2 NS 150CC/HR,ON CLEAR LIQUID,JACKSON CATHETER IN PLACE URINE DRAINING YELLOW AND CLEAR BY GRAVITY,FLEX SEAL IN PLACE NO STOOL NOTED,SAFETY MEASURE IMPLEMENT BED IN LOW POSITION AND LOCKED,CALL LIGHT WITHIN REACH,BED IN LOW POSITION AND LOCKED CONTINUE TO MONITOR.
[2020-12-08 20:00] VITALS: BP 115/70
[2020-12-08 20:08] LABS: BASOPHILS # (AUTO) 0.1 K/uL (0.0-0.2); BASOPHILS % (AUTO) 0.8 % (0.0-2.0); EOSINOPHILS % (AUTO) 5.8 % (0.0-6.0); HEMATOCRIT 25 % (33-45); HEMOGLOBIN 8.2 g/dL (11.5-14.8); LYMPHOCYTES % (AUTO) 26.4 % (20.0-44.0); MEAN CORPUSCULAR HGB CONC 33 g/dl (31.0-36.0); MEAN CORPUSCULAR VOLUME 91 fL (82-100); PLATELET COUNT (AUTO) 345 K/uL (150-450); RED BLOOD CELL COUNT(AUTO) 2.72 MIL/uL (4.0-5.2); WHITE BLOOD COUNT (AUTO) 7.5 K/uL (4.3-11.0)
[2020-12-08 20:29] LABS: BAND % (MANUAL) 8 % (0.0-5.0); EOSINOPHILS % (MANUAL) 3 % (0-4); LYMPHOCYTES % (MANUAL) 22 % (16-48); MONOCYTES % (MANUAL) 11 % (0-11.0); NEUTROPHILS % (MANUAL) 56 (42-76)
[2020-12-08] MEDS: ENOXAPARIN SODIUM 40 MG/0.4 ML DISP.SYRIN SQ SCH (20:43)
[2020-12-08] MEDS: SENNOSIDES 8.6 MG TABLET PO SCH (21:00)
[2020-12-08] MEDS: *INSULIN REGULAR(HUMULIN R)HUM 100 UNIT/ML VIAL SQ PRN (21:33)
[2020-12-09] VITALS: BP 124/86
[2020-12-09] MEDS: MEROPENEM 1 G in IV NS 0.9% 100 ML IV SCH ×2 (00:03→11:34)
[2020-12-09] MEDS: ONDANSETRON HCL/PF 4 MG/2 ML VIAL IVP PRN (00:28)
[2020-12-09] MEDS: VANCOMYCIN 1 GM in IV D5W 250 ML IV SCH ×2 (03:00→20:42)
--- NOTE | 2020-12-09 03:00 | NUR ---
RN NOTE HELD VANCOMYCIN 1 GRAM DUE TO VANCO TROUGH IS 28 ABOVE 20 CONTINUE TO MONITOR.
[2020-12-09] MEDS: MORPHINE SULFATE INJ 2 MG/ML DISP.SYRIN IV PRN ×2 (03:12→15:11)
[2020-12-09 04:00] VITALS: BP 121/89
[2020-12-09] MEDS: IV 1/2NS 1000 ML 1,000 ML IV PRN (05:56)
[2020-12-09 06:27] LABS: BASOPHILS % (AUTO) 0.3 % (0.0-2.0); EOSINOPHILS % (AUTO) 6.9 % (0.0-6.0); HEMATOCRIT 24 % (33-45); HEMOGLOBIN 8.1 g/dL (11.5-14.8); LYMPHOCYTES # (AUTO) 1.8 K/uL (0.8-4.8); LYMPHOCYTES % (AUTO) 25.2 % (20.0-44.0); MEAN CORPUSCULAR HGB CONC 33 g/dl (31.0-36.0); MEAN CORPUSCULAR VOLUME 92 fL (82-100); MONOCYTES # (AUTO) 0.9 K/uL (0.1-1.30); NEUTROPHILS # (AUTO) 3.9 K/uL (1.8-8.9); NEUTROPHILS % (AUTO) 54.6 % (43.0-81.0); PLATELET COUNT (AUTO) 339 K/uL (150-450); RED BLOOD CELL COUNT(AUTO) 2.65 MIL/uL (4.0-5.2); WHITE BLOOD COUNT (AUTO) 7.2 K/uL (4.3-11.0)
--- NOTE | 2020-12-09 06:49 | NUR ---
RN NOTE PATIENT REMAINS ALERT ORIENTED VERBALLY RESPONSIVE ON ROOM AIR NO SOB IV SITE IS ON LEFT UPPER ARM PICC LINE INTACT [id number] ALL DUE MEDS GIVEN MR ORDERED KEPT CLEAN AND DRY ALL THE TIME,ALL NEEDS MET ENDORSE NEXT COMING SHIFT FOR CONTINUATIONOF CARE.
[2020-12-09 07:00] LABS: CALCIUM, SERUM 7.7 mg/dL (8.5-10.1); CREATININE 0.8 mg/dL (0.6-1.3); MAGNESIUM 1.6 mg/dL (1.8-2.4); PHOSPHORUS 3.4 mg/dL (2.5-4.9); POTASSIUM 3.6 mmol/L (3.5-5.1)
--- NOTE | 2020-12-09 07:30 | NUR ---
TD RN NOTE RECEIVED PT IN BED, ALERT AND ORIENTED X 4, MAORI SPEAKING, LITTLE FRENCH, ON ROOM AIR, RESPIRATION UNLABORED, SATTING 98 %. SR HR 90s ON MONITOR. DENIES CHEST PAIN OR DISCOMFORT. COMPLAIN OF ABDOMINAL PAIN , 6/10 SCALE, WILL ADMINISTER PAIN MEDICATION ORDERED. PT ON CLEAR LIQUID DIET. WITH RIMMA PICC LINE, FLUSHES WELL, CDI DRESSING, JACKSON CATH IN PLACE, DRAINING CLEAR YELLOW URINE. FLEXISEAL IN PLACE. POC DISCUSSED. SEE NURSING NOTES FOR SKIN ISSUES. ALL SAFETY MEASURES IN PLACE PER PROTOCOL, BED LOCKED IN LOWEST POSITION, SIDE RAILS UP.WILL CONTINUE TO MONITOR. FOR DEBRIDEMENT WOUND ON THE BACK.
[2020-12-09 08:00] VITALS: BP 148/87
[2020-12-09] MEDS: BLOOD SUGAR DIAGNOSTIC 1 EACH STRIP VI SCH ×4 (08:16→21:23)
[2020-12-09 08:25] LABS: BAND % (MANUAL) 3 % (0.0-5.0); EOSINOPHILS % (MANUAL) 9 % (0-4); LYMPHOCYTES % (MANUAL) 15 % (16-48); MONOCYTES % (MANUAL) 6 % (0-11.0); MYELOCYTES % 3 % (0-0); NEUTROPHILS % (MANUAL) 57 (42-76); REACTIVE LYMPHOCYTES 7 % (0-0)
[2020-12-09] MEDS: Magnesium 1GM/D5W 100ML PREMIX 100 ML IV SCH ×2 (08:54→10:08)
[2020-12-09] MEDS: DOCUSATE SODIUM 100 MG CAPSULE PO SCH ×2 (08:54→16:54)
[2020-12-09] MEDS: PANTOPRAZOLE 40 MG/PACK PACK PO SCH (08:54)
[2020-12-09] MEDS: FERROUS SULFATE (325 MG) 325 MG/TAB TABLET PO SCH (08:54)
[2020-12-09] MEDS: METFORMIN 500 MG TABLET PO SCH ×3 (08:54→17:00)
[2020-12-09] MEDS: MULTIVITAMINS,THERAGRAN 1 UDTAB TABLET PO SCH (08:54)
[2020-12-09] MEDS: ZINC SULFATE 220 MG CAPSULE PO SCH (08:54)
[2020-12-09] MEDS: ACIDOPHILUS/BULGARICUS 1 EACH TAB.CHEW PO SCH ×3 (08:54→16:55)
[2020-12-09] MEDS: ENSURE CLEAR 237 ML LIQUID (MIX BERRY) PO SCH ×3 (08:59→16:55)
[2020-12-09] MEDS: MORPHINE SULFATE IR 15 MG TABLET PO SCH ×2 (09:01→20:45)
[2020-12-09] MEDS: DAKINS QUARTER STRENGTH (0.125%) 480 ML BOTTLE TOP SCH (09:02)
[2020-12-09] MEDS: NEOMY SULF/BACITRAC ZN/POLY 15 GM TUBE TP SCH (09:03)
[2020-12-09 09:23] LABS: BILIRUBIN,DIRECT 0.1 mg/dL (0.0-0.2); BILIRUBIN,TOTAL 0.3 mg/dL (0.2-1.0); TOTAL PROTEIN, SERUM 4.5 g/dL (6.4-8.2)
--- NOTE | 2020-12-09 09:30 | NUR ---
RN NOTES DUE MEDS GIVEN
[2020-12-09 09:50] LABS: ALBUMIN 1.3 g/dL (3.4-5.0)
[2020-12-09 12:00] VITALS: BP 108/73
[2020-12-09 16:00] VITALS: BP 91/54
--- NOTE | 2020-12-09 18:20 | NUR ---
RN CLOSING NOTE PT IN BED, RESTING, ABLE TO MAKE NEEDS KNOWN. NO SIGNS OF DISTRESS NOTED. ALL NEEDS MET, PM CARE AND WOUND CARE DONE EARLIER. PATIENT TO REFUSE TO TURN AND REPOSITION. CLEAR LIQUID DIET. HOB ELEVATED. ALL NEEDS MET FOR NOW. SAFETY MEASURES IN PLACE. ENDORSED TO NEXT SHIFT FOR MERCED. JACKSON CATH URINE OUTPUT 800 ML. PATIENT PER [employer] CREDENTIALS SPECIALIST FOR DR. GLORIA, RESCHEDULE WOUND DEBRIDEMENT TO TOMORROW. BLOOD SUGAR CHECKS DONE. 0829 AT 69 MG/DL, 1144 AT 10 MG/DL, 1706 AT 57 MG/DL, D50W GIVEN, RECHECKED AT 95 MG/DL.
--- NOTE | 2020-12-09 19:30 | NUR ---
RN NOTE RECEIVED PATIENT IN BED RESTING ALERT ORIENTEDX3-4 VERBALLY RESPONSIVE ON ROOM AIR O2:96%,ON CLEAR LIQUID DIET,IV SITE IS ON LEFT UPPER ARM PICC LINE INTACT PATENT,JACKSON CATHETER IN PLACE URINE DRAINING YELLOW AND CLEAR,SAFETY MEASURE IMPLEMENT,CALL LIGHT WITHIN REACH,CONTINUE TO MONITOR.
[2020-12-09 20:00] VITALS: BP 116/72
[2020-12-09] MEDS: ENOXAPARIN SODIUM 40 MG/0.4 ML DISP.SYRIN SQ SCH (20:46)
--- NOTE | 2020-12-09 21:00 | NUR ---
RN NOTE HELD LOVENOX FOR WOUND DEBRIDEMENT TOMORROW CONTINUE TO MONITOR.
[2020-12-09] MEDS: SENNOSIDES 8.6 MG TABLET PO SCH (21:06)
[2020-12-09] MEDS: *INSULIN REGULAR(HUMULIN R)HUM 100 UNIT/ML VIAL SQ PRN (21:24)
[2020-12-10] VITALS: BP 97/62
[2020-12-10] MEDS ORDERED: PIPERACILLIN /TAZOBACTAM 3.375 G VIAL IV ONE ×2 (00:15→05:11)
[2020-12-10] MEDS: ZOSYN IVPB 3.375 G in IV D5W 50ml IV SCH ×2 (00:16→05:12)
[2020-12-10] MEDS: MORPHINE SULFATE INJ 2 MG/ML DISP.SYRIN IV PRN ×3 (03:31→15:57)
[2020-12-10 04:00] VITALS: BP 95/57
--- NOTE | 2020-12-10 06:59 | NUR ---
RN NOTE PATIENT REMAINS ON ALERT ORIENTED VERBALLY RESPONSIVE ON ROOM AIR NO SOB NOT ACUTE DISTRESS NOTED,ALL DUE MEDS GIVEN MD ORDERED KEPT CLEAN AND DRY ALL THE TIME,KEPT COMFORTABLE ALL NEEDS MET ENDORSE NEXT COMING SHIFT FOR CONTINUATION OF CARE.
[2020-12-10 07:20] LABS: CALCIUM, SERUM 7.8 mg/dL (8.5-10.1); CREATININE 0.8 mg/dL (0.6-1.3); POTASSIUM 3.4 mmol/L (3.5-5.1)
[2020-12-10] MEDS: BLOOD SUGAR DIAGNOSTIC 1 EACH STRIP VI SCH ×4 (07:30→21:33)
--- NOTE | 2020-12-10 07:30 | NUR ---
RN OPENINGN NOTE PT IN BED SEMIFOWLER'S, A/Ox3, C/O PAIN GENERIC/ABD 12/31 AND NAUSEA, WILL ADMIN MEDS PRN. PT BREATHING RA, NO SIGNS OF RESP DISTRESS OR SOB. PT HAS LARGE ABD WOUND AND WOUND ON BACK, SKIN TEARS THROUGHOUT BODY. PT FLEXISEAL INTACT, JACKSON CATH DRAINING CLEAR ARAMIS URINE VIA GRAVITY. PT RIMMA PICC LINE INTACT, FLUSHED. ALL PT SAFETY PRECAUTIONS IN PLACE, WILL CONT TO MNITOR
[2020-12-10 08:00] VITALS: BP 95/64
[2020-12-10] MEDS: FERROUS SULFATE (325 MG) 325 MG/TAB TABLET PO SCH ×2 (09:00→09:23)
[2020-12-10] MEDS: ZINC SULFATE 220 MG CAPSULE PO SCH ×2 (09:00→09:22)
[2020-12-10] MEDS: MULTIVITAMINS,THERAGRAN 1 UDTAB TABLET PO SCH ×2 (09:00→09:22)
[2020-12-10] MEDS: ACIDOPHILUS/BULGARICUS 1 EACH TAB.CHEW PO SCH ×5 (09:00→17:00)
[2020-12-10] MEDS: MORPHINE SULFATE IR 15 MG TABLET PO SCH ×4 (09:00→21:00)
[2020-12-10] MEDS: PANTOPRAZOLE 40 MG/PACK PACK PO SCH ×2 (09:00→09:23)
[2020-12-10] MEDS: DOCUSATE SODIUM 100 MG CAPSULE PO SCH ×3 (09:00→17:00)
[2020-12-10] MEDS: DAKINS QUARTER STRENGTH (0.125%) 480 ML BOTTLE TOP SCH (09:23)
[2020-12-10] MEDS: ENSURE CLEAR 237 ML LIQUID (MIX BERRY) PO SCH ×4 (09:24→18:07)
[2020-12-10] MEDS: NEOMY SULF/BACITRAC ZN/POLY 15 GM TUBE TP SCH (09:24)
[2020-12-10] MEDS: ONDANSETRON HCL/PF 4 MG/2 ML VIAL IVP PRN ×3 (09:36→20:19)
[2020-12-10] MEDS: POTASSIUM CHLORIDE 20 MEQ TAB.PRT.SR PO ONE ×2 (10:00→12:59)
[2020-12-10] MEDS: Sodium Bicarbonate 150 MEQ in IV D5W 1,000 ML IV SCH (10:15)
[2020-12-10 12:00] VITALS: BP 95/61
[2020-12-10] MEDS: PIPERACILLIN /TAZOBACTAM 3.375 G in IV D5W 100 ML IV SCH ×2 (13:00→20:19)
--- NOTE | 2020-12-10 13:13 | NUR ---
RN NOTE PT UNABLE TO TAKE ANY PO MEDS. EMESIS EPISODE AT 0900, ZOFRAN GIVEN. PT STILL NAUSEOUS. DR TAYLOR NOTIFIED
[2020-12-10] MEDS ORDERED: SILVER NITRATE APPLICATOR 1 EA BOX TP STA (16:15)
[2020-12-10 17:19] VITALS: BP 102/68
[2020-12-10] MEDS ORDERED: POTASSIUM CHLORIDE 10 MEQ/50 ML PREMIXED IVPB FOR PERIPHERAL LINE IV ONE (19:00)
--- NOTE | 2020-12-10 19:00 | NUR ---
RN CLOSING NOTES PT HANDLED RT BACK AND ABD DEBRIDEMENT FAIR. PT HAD 2 EMESIS EPISODES AND NAUSEA THROUGHOUT ENTIRE SHIFT, UNABLE TO TAKE PO MEDS. NO OTHER CHANGES TO PT DURING SHIFT, PT STABLE, MERCED ENDORSED TO RN
[2020-12-10] MEDS: POTASSIUM CL. PREMIX PERIPHER. 50 ML IV SCH ×2 (19:43→20:36)
[2020-12-10 20:00] VITALS: BP 94/55
[2020-12-10] MEDS: ENOXAPARIN SODIUM 40 MG/0.4 ML DISP.SYRIN SQ SCH (20:08)
--- NOTE | 2020-12-10 20:45 | NUR ---
REPORTED TO FRONT DESK ASSISTANT BRITTA WHEAT THAT PT IS VERY NAUSEATED AND VOMITTING AND UNABLE TO SWALLOW MEDICATION FOR NOW, AND SHE HAS DUE MORPHINE TABLET, SHE ORDER MORPHINE 2MG IVPUSH X1 NOW AND NOT TO GIVE THE PO MORPHINE THIS EVENING NOTED AND CARRIED OUT
[2020-12-10] MEDS ORDERED: MORPHINE SULFATE INJ 2 MG/ML DISP.SYRIN IV ONE (21:00)
[2020-12-10] MEDS: VANCOMYCIN 1 GM in IV D5W 250 ML IV SCH (21:20)
[2020-12-10] MEDS: SENNOSIDES 8.6 MG TABLET PO SCH (21:21)
[2020-12-11] VITALS: BP 95/65
[2020-12-11] MEDS: MORPHINE SULFATE INJ 2 MG/ML DISP.SYRIN IV PRN ×3 (02:49→13:02)
[2020-12-11 04:00] VITALS: BP 106/63
[2020-12-11] MEDS: PIPERACILLIN /TAZOBACTAM 3.375 G in IV D5W 100 ML IV SCH ×3 (04:12→21:25)
[2020-12-11] MEDS: Sodium Bicarbonate 150 MEQ in IV D5W 1,000 ML IV SCH (06:09)
[2020-12-11 06:27] LABS: BASOPHILS # (AUTO) 0.1 K/uL (0.0-0.2); BASOPHILS % (AUTO) 0.6 % (0.0-2.0); EOSINOPHILS % (AUTO) 7.4 % (0.0-6.0); HEMATOCRIT 25 % (33-45); HEMOGLOBIN 8.2 g/dL (11.5-14.8); LYMPHOCYTES # (AUTO) 2.2 K/uL (0.8-4.8); LYMPHOCYTES % (AUTO) 24.9 % (20.0-44.0); MEAN CORPUSCULAR HGB CONC 33 g/dl (31.0-36.0); MEAN CORPUSCULAR VOLUME 90 fL (82-100); MONOCYTES # (AUTO) 0.9 K/uL (0.1-1.30); MONOCYTES % (AUTO) 10.2 % (2.0-12.0); NEUTROPHILS % (AUTO) 56.9 % (43.0-81.0); PLATELET COUNT (AUTO) 339 K/uL (150-450); RED BLOOD CELL COUNT(AUTO) 2.76 MIL/uL (4.0-5.2); WHITE BLOOD COUNT (AUTO) 8.8 K/uL (4.3-11.0)
--- NOTE | 2020-12-11 06:33 | NUR ---
PT ON BED ASLEEP EASY TO WAKEUP STILL ON ROOM AIR SNO SIGN OF ANY RESPIRATORY DISTRESS, STILL ON GENERALIZED PAIN, PRN MEDS GIVEN, TELE MONITOR READS SINUS RHYTHM 90'S WOUND TREATMENT DONE ORDER, BED ON LOWEST POSITION AND LOCKED SIDE RAILS UP X2 CALL LIGHT WITHIN REACH WILL ENDORSED TO AM SHIFT NURSE
--- NOTE | 2020-12-11 07:07 | NUR ---
RN NOTE RECEIVED PT IN BED , A/Ox3, RESTING , NO DISTRESS NOTED, ON RA, O2 SAT WNL LARGE ABD WOUND AND WOUND ON BACK, SKIN TEARS THROUGHOUT BODY. PT FLEXISEAL INTACT, JACKSON CATH DRAINING CLEAR ARAMIS URINE VIA GRAVITY. PT RIMMA PICC LINE INTACT, FLUSHED. ALL PT SAFETY PRECAUTIONS IN PLACE, WILL CONT TO MONITOR
[2020-12-11 07:32] LABS: CALCIUM, SERUM 7.6 mg/dL (8.5-10.1); CREATININE 0.8 mg/dL (0.6-1.3); MAGNESIUM 1.8 mg/dL (1.8-2.4); PHOSPHORUS 3.4 mg/dL (2.5-4.9); POTASSIUM 3.2 mmol/L (3.5-5.1)
[2020-12-11 08:00] VITALS: BP 109/74
[2020-12-11] MEDS: ENSURE CLEAR 237 ML LIQUID (MIX BERRY) PO SCH ×3 (08:00→16:04)
[2020-12-11] MEDS: DOCUSATE SODIUM 100 MG CAPSULE PO SCH ×2 (08:35→16:04)
[2020-12-11] MEDS: ACIDOPHILUS/BULGARICUS 1 EACH TAB.CHEW PO SCH ×3 (08:38→16:04)
[2020-12-11] MEDS: MULTIVITAMINS,THERAGRAN 1 UDTAB TABLET PO SCH (08:38)
[2020-12-11] MEDS: PANTOPRAZOLE 40 MG/PACK PACK PO SCH (08:38)
[2020-12-11] MEDS: ZINC SULFATE 220 MG CAPSULE PO SCH (08:38)
[2020-12-11] MEDS: DAKINS QUARTER STRENGTH (0.125%) 480 ML BOTTLE TOP SCH (08:39)
[2020-12-11] MEDS: NEOMY SULF/BACITRAC ZN/POLY 15 GM TUBE TP SCH (08:40)
[2020-12-11] MEDS: POTASSIUM CL. PREMIX PERIPHER. 50 ML IV SCH ×5 (08:40→12:56)
[2020-12-11] MEDS: BLOOD SUGAR DIAGNOSTIC 1 EACH STRIP VI SCH ×4 (08:41→21:30)
[2020-12-11] MEDS: FERROUS SULFATE (325 MG) 325 MG/TAB TABLET PO SCH (08:43)
[2020-12-11] MEDS: MORPHINE SULFATE IR 15 MG TABLET PO SCH ×2 (08:43→21:28)
[2020-12-11] MEDS: ONDANSETRON HCL/PF 4 MG/2 ML VIAL IVP PRN ×3 (08:49→22:32)
--- NOTE | 2020-12-11 08:49 | NUR ---
RN NOTES PT VOMITED x1, MEDICATED WITH ZOFRAN IV PER MD ORDER .
[2020-12-11 12:00] VITALS: BP 106/71
--- NOTE | 2020-12-11 14:01 | NUR ---
RN NOTES PT C/O NAUSEA , MEDICATED WITH ZOFRAN IV PER MD ORDER .
[2020-12-11 16:00] VITALS: BP 106/72
--- NOTE | 2020-12-11 18:37 | NUR ---
RN NOTES PT C/O NAUSEA AT TIMES, REFUSED PO MEDS , VSS STABLE, DRESSING TO ABDOMEN AND BACK ,INTACT, SR UP x3, CALL LIGHT WITHIN EASY REACH, BED LOCKED AND IN LOWEST POSITION , WILL ENDOSE TO HEALTHCARE LIAISON NURSE FOR CONTINUITY OF CARE .
[2020-12-11] MEDS: VANCOMYCIN 1 GM in IV D5W 250 ML IV SCH (21:00)
[2020-12-11] MEDS: SENNOSIDES 8.6 MG TABLET PO SCH (21:28)
[2020-12-11] MEDS: *INSULIN REGULAR(HUMULIN R)HUM 100 UNIT/ML VIAL SQ PRN (21:30)
[2020-12-11] MEDS: ENOXAPARIN SODIUM 40 MG/0.4 ML DISP.SYRIN SQ SCH (21:36)
--- NOTE | 2020-12-11 21:39 | NUR ---
VANCOMYCIN HELD; VANCOMYCIN THROUGH . [facility] NOTIFIED C/O GABBY
--- NOTE | 2020-12-11 22:30 | NUR ---
PT TRANSPORTED VIA GURNEY TO UNIT AT THIS TIME. REPORT RECEIVED FROM MARYLU RN @ [facility]. PT ADMITTED TO TELE. AOX4 ABLE TO MAKE NEEDS KNOWN. ON RA, NO SOB NOTED. PT ON EXTERNAL HONEY BLENDER READING. PT DENIES PAIN OR DISCOMFORT AT THIS TIME. MULTIPLE PT REFUSED TO BE ASSESSED. ALL BELONGINGS ACCOUNTED FOR AND SIGNED BY PATIENT. IV ACCESS NOTED ON RIMMA PICC LINE INTACT, PATENT, AND FLUSHING WELL. SAFETY PRECAUTIONS IN PLACE AND MAINTAINED AT ALL TIMES. BED IN LOWEST LOCKED POSITION, HOB ELEVATED, SIDE RAILS UP X2. CALL LIGHT AND TABLE WITHIN REACH, BED ALARM ON. WILL CONTINUE TO MONITOR.
--- NOTE | 2020-12-11 22:32 | NUR ---
PT C/O NAUSEA, ZOFRAN 4MG/2ML IVP IV Q6 HR PRN ADMINISTERED PER PT REQUEST
[2020-12-11 23:57] VITALS: BP 116/74
[2020-12-12] VITALS: BP 101/69
[2020-12-12] MEDS: Sodium Bicarbonate 150 MEQ in IV D5W 1,000 ML IV SCH (02:16)
[2020-12-12 04:00] VITALS: BP 118/73
[2020-12-12] MEDS: PIPERACILLIN /TAZOBACTAM 3.375 G in IV D5W 100 ML IV SCH ×2 (04:44→11:46)
[2020-12-12] MEDS: MORPHINE SULFATE INJ 2 MG/ML DISP.SYRIN IV PRN ×3 (05:39→16:48)
[2020-12-12] MEDS: ONDANSETRON HCL/PF 4 MG/2 ML VIAL IVP PRN ×3 (05:39→16:48)
--- NOTE | 2020-12-12 05:39 | NUR ---
PT C/O NAUSEA, ZOFRAN 4MG/2ML IVP IV Q6 HR PRN ADMINISTERED PER PT REQUEST
--- NOTE | 2020-12-12 05:39 | NUR ---
PT C/O PAIN 01/31, VS WNL MORPHINE 2MG/1ML IV Q 4HR PRN ADMINISTERED PER PT REQUEST
--- NOTE | 2020-12-12 06:00 | NUR ---
RN CLOSING NOTE PT IS IN BED AND AWAKE. NO SOB, NO PAIN. WILL ENDORSE TO ONCOMING NURSE FOR MERCED..
[2020-12-12 06:23] LABS: BASOPHILS % (AUTO) 0.5 % (0.0-2.0); EOSINOPHILS % (AUTO) 8.7 % (0.0-6.0); HEMATOCRIT 26 % (33-45); HEMOGLOBIN 8.6 g/dL (11.5-14.8); LYMPHOCYTES # (AUTO) 2.2 K/uL (0.8-4.8); MEAN CORPUSCULAR HGB CONC 34 g/dl (31.0-36.0); MEAN CORPUSCULAR VOLUME 90 fL (82-100); MONOCYTES # (AUTO) 0.8 K/uL (0.1-1.30); MONOCYTES % (AUTO) 9.3 % (2.0-12.0); NEUTROPHILS # (AUTO) 5.1 K/uL (1.8-8.9); NEUTROPHILS % (AUTO) 56.5 % (43.0-81.0); PLATELET COUNT (AUTO) 359 K/uL (150-450); RED BLOOD CELL COUNT(AUTO) 2.85 MIL/uL (4.0-5.2)
[2020-12-12 06:37] LABS: CALCIUM, SERUM 7.7 mg/dL (8.5-10.1); MAGNESIUM 1.7 mg/dL (1.8-2.4); PHOSPHORUS 3.1 mg/dL (2.5-4.9); POTASSIUM 3.8 mmol/L (3.5-5.1)
[2020-12-12 08:00] VITALS: BP 137/80
[2020-12-12] MEDS: BLOOD SUGAR DIAGNOSTIC 1 EACH STRIP VI SCH ×3 (08:01→17:03)
[2020-12-12] MEDS: ENSURE CLEAR 237 ML LIQUID (MIX BERRY) PO SCH ×3 (08:30→16:03)
[2020-12-12] MEDS: MORPHINE SULFATE IR 15 MG TABLET PO SCH ×2 (09:00→09:18)
[2020-12-12] MEDS: DAKINS QUARTER STRENGTH (0.125%) 480 ML BOTTLE TOP SCH (09:15)
[2020-12-12] MEDS: NEOMY SULF/BACITRAC ZN/POLY 15 GM TUBE TP SCH (09:15)
[2020-12-12] MEDS: Magnesium 1GM/D5W 100ML PREMIX 100 ML IV SCH ×2 (09:15→10:46)
[2020-12-12] MEDS: PANTOPRAZOLE 40 MG/PACK PACK PO SCH (09:17)
[2020-12-12] MEDS: FERROUS SULFATE (325 MG) 325 MG/TAB TABLET PO SCH (09:17)
[2020-12-12] MEDS: ACIDOPHILUS/BULGARICUS 1 EACH TAB.CHEW PO SCH ×3 (09:17→16:07)
[2020-12-12] MEDS: DOCUSATE SODIUM 100 MG CAPSULE PO SCH ×2 (09:17→16:03)
[2020-12-12] MEDS: ZINC SULFATE 220 MG CAPSULE PO SCH (09:20)
[2020-12-12] MEDS: MULTIVITAMINS,THERAGRAN 1 UDTAB TABLET PO SCH (09:20)
[2020-12-12] MEDS ORDERED: VANC1VIA34 XX (09:39)
[2020-12-12] MEDS ORDERED: PIPE3.379 IV (09:39)
--- NOTE | 2020-12-12 09:40 | NUR ---
RN NOTES PATIENT COMPLAINT OF NAUSEA AND WAS NOT ABLE TO TAKE THE MORPHINE IR TABLET; REQUESTED IV MORPHINE AND ZOFRAN INSTEAD.
--- NOTE | 2020-12-12 11:30 | NUR ---
RN NOTES SPOKE W/ REINA, HUMAN RESOURCES EXECUTIVE ASSISTANT; WILL TRY TO ARRANGE TRANSPORTATION FOR 1800 TODAY.
[2020-12-12] MEDS: INSULIN REGULAR, HUMAN 100 UNIT/ML 3 ML VIAL SQ PRN ×2 (11:58→17:03)
--- NOTE | 2020-12-12 14:49 | NUR ---
RN NOTES VANCO TROUGH TODAY IS 19; OK TO GIVE SCHEDULED VANCO IV AT 1600.
[2020-12-12 16:00] VITALS: BP 121/76
[2020-12-12] MEDS ORDERED: VANCOMYCIN 0.75 GM in IV D5W 250 ML IV SCH ×2 (16:00→18:00)
--- NOTE | 2020-12-12 17:40 | NUR ---
RN NOTES PATIENT REPORT GIVEN TO JULIO BLANCA AT [facility]. DISCHARGE INSTRUCTIONS PROVIDED FOR MERCED.
--- NOTE | 2020-12-12 18:49 | NUR ---
RN NOTES DISCHARGE FORM AND BELONGINGS LIST FORM UNABLE TO BE SIGNED BY PATIENT. FORMS SIGNED BY ME AND WITNESSED BY ANOTHER RN MALINA. PICC LINE INTACT AND PATENT. IV VANCOMYCIN GIVEN. PATIENT FOR PICKUP [facility] AT 1930. SAFETY MEASURES MAINTAINED. WILL ENDORSE TO PARAMEDIC INSTRUCTOR RN FOR MERCED FOR DISCHARGE.
[2020-12-12 20:00] VITALS: BP 108/71
--- NOTE | 2020-12-12 20:30 | NUR ---
PHYSICIAN/OPHTHALMOLOGIST NOTES CALLED [facility] RE PT'S ACCOUNTS ADMINISTRATOR. PER DISPATCH, AMBULANCE IS ALREADY IN THE VICINITY. WILL CONTINUE TO MONITOR.
--- NOTE | 2020-12-12 21:00 | NUR ---
HAND SALTER NOTES AMBULANCE CAME TO BILINGUAL SECRETARY PT. PT NOT IN ANY DISTRESS. NO SOB NOTED. DENIES ANY PAIN OR DISCOMFORT AT THIS TIME. WITH PICC LINE PATENT & INTACT. F/C AND RECTAL TUBE D/CD. PT TOLERATED WELL. DRESSINGS ALL OVER THE BODY C/D/I. VSS. AFEBRILE. BELONGINGS SENT WITH PT WELL PRESCRIPTIONS. REPORT GIVEN TO EMT FOR CONTINUITY OF CARE.
== END 2020-12-12 21:15 | DRG 710 ==
LOC: ER 10:40 → TELE1 15:21 → TELE-TD 15:35 → TELE1 12-11 09:08 → TELE 12-11 22:03 → MED 12-12 09:31 → TELE 12-12 10:25
PROVIDERS: ADMIT Internal Medicine; ATTEND Internal Medicine
PROC: 30233N1 Transfusion of Nonautologous Red Blood Cells into Peripheral Vein, Percutaneous Approach (ICD-10-PCS; principal; 2020-12-06)
PROC: 0KBF0ZZ Excision of Right Trunk Muscle, Open Approach (ICD-10-PCS; 2020-12-10)
PROC: 0KBK0ZZ Excision of Right Abdomen Muscle, Open Approach (ICD-10-PCS; 2020-12-10)
DX: A41.9 Sepsis, unspecified organism (principal); L89.104 Pressure ulcer of unspecified part of back, stage 4; L89.159 Pressure ulcer of sacral region, unspecified stage; E44.0 Moderate protein-calorie malnutrition; E87.2 Acidosis; Z93.0 Tracheostomy status; D68.59 Other primary thrombophilia; D47.2 Monoclonal gammopathy; E11.22 Type 2 diabetes mellitus with diabetic chronic kidney disease; E11.43 Type 2 diabetes mellitus with diabetic autonomic (poly)neuropathy; K31.84 Gastroparesis; E66.01 Morbid (severe) obesity due to excess calories; S31.109A Unspecified open wound of abdominal wall, unspecified quadrant without penetration into peritoneal cavity, initial encounter; D64.9 Anemia, unspecified; X58.XXXA Exposure to other specified factors, initial encounter; Y93.9 Activity, unspecified; Y92.129 Unspecified place in nursing home as the place of occurrence of the external cause; Z86.16 Personal history of COVID-19; E83.42 Hypomagnesemia; E87.6 Hypokalemia; F17.210 Nicotine dependence, cigarettes, uncomplicated; K52.9 Noninfective gastroenteritis and colitis, unspecified; Z68.35 Body mass index [BMI] 35.0-35.9, adult; I12.9 Hypertensive chronic kidney disease with stage 1 through stage 4 chronic kidney disease, or unspecified chronic kidney disease; N18.9 Chronic kidney disease, unspecified; Z90.49 Acquired absence of other specified parts of digestive tract; Z87.442 Personal history of urinary calculi; Z87.01 Personal history of pneumonia (recurrent); Z86.718 Personal history of other venous thrombosis and embolism; Z79.4 Long term (current) use of insulin; R13.10 Dysphagia, unspecified; Z87.440 Personal history of urinary (tract) infections; Z20.822 Contact with and (suspected) exposure to COVID-19; N20.0 Calculus of kidney
CPT/HCPCS: 36415; 71045-TC; 74178; 80048-TC; 80053-TC; 80076-TC; 80202-TC; 82248-TC; 82962-TC; 83605-TC; 83735-TC; 84100-TC; 84484-TC; 84702-TC; 85025-TC; 85027-TC; 85730-TC; 86850-TC; 87040-TC; 87081-TC; 87186-TC; 97110-TC; 97112-TC; 97530-TC; A4216; A4217; A6253; A6403; C9113; G0378; J1650; J1815; J2185; J2270; J2405; J2543; J3370; J3475; J3480; J3490; J7030; J7040; J7050; J7060; J7070; J7120; P9016; P9047; Q9967; U0003

== ENCOUNTER 2020-12-26 22:34 | Inpatient (IN) | payer OTHER ==
[~2020-12-26] VITALS: Ht 160 cm; Wt 87.3 kg
[~2020-12-26 22:34] MED LIST changes: -BISA10SU11 RC; -ENOX100D SQ; +ENOX40DI SQ; +FERR325T28 PO; -MERO1VIA23 IV; +NEOM1OIN15 TP; -NEOM1OIN19 TP; +PIPE3.379 IV; +TPN; -TPN ADD IV; +VANC1VIA34 XX
--- NOTE | 2020-12-26 22:55 | NUR ---
DR. FANG AT BEDSIDE
[2020-12-26] MEDS ORDERED: VANCOMYCIN 1 GM VIAL ONE (22:58)
[2020-12-26] MEDS ORDERED: PIPERACILLIN /TAZOBACTAM 3.375 G VIAL IV ONE (22:58)
--- NOTE | 2020-12-26 22:58 | NUR ---
BLOOD COLLECTED SENT TO LAB.
[2020-12-26] MEDS ORDERED: ACETAMINOPHEN 325 MG TABLET PO ONE (23:00)
[2020-12-26] MEDS ORDERED: PIPERACILLIN /TAZOBACTAM 3.375 G in IV D5W 50 ML IV ONE (23:00)
[2020-12-26] MEDS ORDERED: IV NS 0.9% 1,000 ML BAG IV ONE (23:00)
[2020-12-26] MEDS ORDERED: VANCOMYCIN 1 GM in IV D5W 250 ML IV ONE (23:00)
--- NOTE | 2020-12-26 23:00 | NUR ---
URINE COLLECTED AND SENT TO LAB.
[2020-12-26 23:02] LABS: BASOPHILS # (AUTO) 0.1 K/uL (0.0-0.2); BASOPHILS % (AUTO) 0.7 % (0.0-2.0); EOSINOPHILS % (AUTO) 5.2 % (0.0-6.0); HEMATOCRIT 22 % (33-45); LYMPHOCYTES # (AUTO) 2.8 K/uL (0.8-4.8); LYMPHOCYTES % (AUTO) 29.7 % (20.0-44.0); MEAN CORPUSCULAR HGB CONC 32 g/dl (31.0-36.0); MEAN CORPUSCULAR VOLUME 93 fL (82-100); MONOCYTES # (AUTO) 0.6 K/uL (0.1-1.30); MONOCYTES % (AUTO) 6.5 % (2.0-12.0); NEUTROPHILS # (AUTO) 5.4 K/uL (1.8-8.9); NEUTROPHILS % (AUTO) 57.9 % (43.0-81.0); PLATELET COUNT (AUTO) 349 K/uL (150-450); RED BLOOD CELL COUNT(AUTO) 2.32 MIL/uL (4.0-5.2); WHITE BLOOD COUNT (AUTO) 9.4 K/uL (4.3-11.0)
--- NOTE | 2020-12-26 23:02 | NUR ---
XRAY AT BEDSIDE
--- NOTE | 2020-12-26 23:04 | NUR ---
HGB 7.0
[2020-12-26 23:13] LABS: CALCIUM, SERUM 8.4 mg/dL (8.5-10.1); CARBON DIOXIDE 26 mmol/L (21-32); CHLORIDE 110 mmol/L (98-107); CREATININE 1.2 mg/dL (0.6-1.3); GLUCOSE 171 mg/dL (74-106); POTASSIUM 4.9 mmol/L (3.5-5.1); SODIUM SERUM 144 mmol/L (136-145); UREA NITROGEN, BLOOD 48 mg/dL (7-18)
[2020-12-26 23:26] LABS: ALANINE AMINOTRANSFERASE 170 U/L (12-78); ALKALINE PHOSPHATASE 554 U/L (46-116); ASPARTATE AMINOTRANSFERASE 151 U/L (15-37); BILIRUBIN,DIRECT 0.2 mg/dL (0.0-0.2); BILIRUBIN,TOTAL 0.3 mg/dL (0.2-1.0); TOTAL PROTEIN, SERUM 5.3 g/dL (6.4-8.2)
[2020-12-26 23:29] LABS: ALBUMIN 1.3 g/dL (3.4-5.0)
[2020-12-26] MEDS ORDERED: ACETAMINOPHEN 325 MG TABLET ONE (23:39)
[2020-12-26 23:40] LABS: COLOR,URINE YELLOW (YELLOW)
[2020-12-26 23:41] LABS: PH,URINE 6.5 (5.0-8.0)
[2020-12-26 23:48] LABS: BILIRUBIN,URINE NEGATIVE (NEGATIVE); LEUKOCYTE ESTERASE ,URINE LARGE (NEGATIVE); NITRITE, URINE NEGATIVE (NEGATIVE); PROTEIN,URINE 2+ mg/dl (NEGATIVE); UGLUCOSE NEGATIVE (NEGATIVE); UROBILINOGEN,URINE 0.2 EU/dL (0.2)
[2020-12-26 23:51] LABS: BACTERIA,URINE Many /HPF (None Seen); RBC,URINE 21-50 /HPF (0-2); SQUAMOUS EPITHELIAL CELL,UR Few /HPF (None Seen); WBC,URINE TOO NUMEROUS TO COUN /HPF (0-3); YEAST,URINE Many /HPF (None Seen)
--- NOTE | 2020-12-26 23:56 | NUR ---
COVID SWAB COLLECTED AND SENT TO LAB
--- NOTE | 2020-12-27 00:41 | NUR ---
PATIENT SIGNED CONSENT FOR BLODD TRANSFUSION
[2020-12-27] MEDS ORDERED: KETOROLAC TROMETHAMINE 15 MG/ML VIAL ONE (01:26)
[2020-12-27] MEDS ORDERED: KETOROLAC TROMETHAMINE INJ 30 MG/ML VIAL IV ONE (01:30)
--- NOTE | 2020-12-27 01:37 | NUR ---
TRANSFUSION STARTED PATIENT TEMP NOTES AT 102.1 MADE AWARE NOT A REACTION BP 93/54 HR 119 RR 20
--- NOTE | 2020-12-27 01:53 | NUR ---
PATIENT TEMP NOTES AT 100.4
--- NOTE | 2020-12-27 03:53 | NUR ---
TRANSFUSION COMPELTED, PATIENT NOTED WITH NO REACTION, VSS.
--- NOTE | 2020-12-27 04:10 | NUR ---
RN NOTES RECEIVED ER ADMISSION REPORT FROM JULIO GRUBER. ALL PERTINENT ADMISSION INFO REGARDING PT NOTED. WILL WAIT FOR PT TO BE TRANSFERRED TO UNIT AND ADDRESS NEEDS ACCORDINGLY. INSULATION CUPOLA OPERATOR MADE AWARE.
--- NOTE | 2020-12-27 04:16 | NUR ---
REPORT GIVEN TO JULIO RIZZO
--- NOTE | 2020-12-27 04:35 | NUR ---
RN NOTES RECEIVED PT FROM ER VIA BLAIR ACCOMPANIED BY 2 ER STAFF AND TRANSFERRED TO BED VIA 2 PERSON ASSIST. PT IS A/OX4; CITIZ[place]. ON 4L OF O2 VIA NC WITH RESPIRATIONS EVEN AND UNLABORED. COMPREHENSIVE PHYSICAL ASSESSMENT AND PATIENT CARE DONE. CALL LIGHT WITHIN REACH, SAFETY MEASURES AND ISOLATION PRECAUTION IN PLACE, WILL CONTINUE MONITOR AND ASSESS THROUGHOUT THE SHIFT. WILL CARRY OUT MD ORDERS ACCORDINGLY. INTERN MADE AWARE.
[2020-12-27 04:40] VITALS: BP 84/54
--- NOTE | 2020-12-27 04:40 | NUR ---
PATIENT TRANSFERRED UNDER ACLS
[2020-12-27] MEDS: IV LR 1000 ML 1,000 ML IV PRN ×2 (05:00→16:35)
[2020-12-27] MEDS ORDERED: MEROPENEM 1 G in IV NS 0.9% 100 ML IV ONE (05:00)
[2020-12-27] MEDS ORDERED: MEROPENEM 1 G in IV NS 0.9% 100 ML IV SCH (05:00)
[2020-12-27] MEDS ORDERED: Z GUARD REMEDY 2 OZ OINT TP PRN (05:00)
[2020-12-27] MEDS ORDERED: MEROPENEM 1 G VIAL IV ONE (05:22)
--- NOTE | 2020-12-27 05:35 | NUR ---
0535 LITZY LUNA MADE AWARE OF PATIENT'S PERSISTENT LOW BP IN THE 70S AND 80S WITH ORDER TO GIVE NS 1 LITER BOLUS NOW. ORDER NOTED AND CARRIED OUT.
[2020-12-27] MEDS ORDERED: IV NS 0.9% 1,000 ML IV ONE ×2 (06:00→19:30)
[2020-12-27 06:38] LABS: BASOPHILS # (AUTO) 0.1 K/uL (0.0-0.2); BASOPHILS % (AUTO) 0.8 % (0.0-2.0); EOSINOPHILS % (AUTO) 3.2 % (0.0-6.0); HEMATOCRIT 26 % (33-45); HEMOGLOBIN 8.6 g/dL (11.5-14.8); LYMPHOCYTES # (AUTO) 1.8 K/uL (0.8-4.8); LYMPHOCYTES % (AUTO) 17.1 % (20.0-44.0); MEAN CORPUSCULAR HGB CONC 33 g/dl (31.0-36.0); MEAN CORPUSCULAR VOLUME 94 fL (82-100); MONOCYTES # (AUTO) 0.6 K/uL (0.1-1.30); MONOCYTES % (AUTO) 5.5 % (2.0-12.0); NEUTROPHILS # (AUTO) 7.9 K/uL (1.8-8.9); NEUTROPHILS % (AUTO) 73.4 % (43.0-81.0); PLATELET COUNT (AUTO) 301 K/uL (150-450); RED BLOOD CELL COUNT(AUTO) 2.76 MIL/uL (4.0-5.2); WHITE BLOOD COUNT (AUTO) 10.7 K/uL (4.3-11.0)
--- NOTE | 2020-12-27 07:00 | NUR ---
RN NOTES 3 PORTS OF THE LEFT ARM PICC LINE OCCLUDED , UNABLE TO FLUSH , ORDER RECEIVED FOR NEW PICC LINE INSERTION.
--- NOTE | 2020-12-27 07:04 | NUR ---
RN CLOSING NOTE: PATIENT REMAINS IN ROOM IN NO SIGNS OF RESPIRATORY DISTRESS, PATIENT STILL ON 4L OF 02 VIA NC ;TOLERATING WELL SATURATING @ >95% SP02. SAFETY MEASURES IMPLEMENTED, BED IN LOWEST POSITION, LOCKED, SIDE RAILS UP, CALL LIGHT WITHIN REACH. ALL NEEDS AND ORDERS ADDRESSED DURING THE SHIFT. IV ACCESS MAINTAINED INTACT, SECURED AND FLUSHING WELL. ALL DUE MEDS GIVEN ORDERED & SCHEDULED ; PATIENT TOLERATED WELL. PATIENT KEPT CLEAN AND COMFORTABLE WITHIN THE SHIFT. PATIENT ENDORSED TO INCOMING SHIFT RN WITH STABLE VITAL SIGN AND FOR CONTINUITY OF CARE.
--- NOTE | 2020-12-27 07:07 | NUR ---
RN NOTE: RECEIVED PT ON BED, A/Ox4, ON 4L OF 02 VIA NC, O2 SAT WNL, ON TELE SR HR IN 80'S, LR AT 100CC/HR RUNNING , R HAND AND R FA IV SITES CLEAN, DRY AND INTACT, SR UP x3, SAFETY MEASURES IMPLEMENTED, BED IN LOWEST POSITION, LOCKED, SIDE RAILS UP, CALL LIGHT WITHIN REACH. CONTINUE TO MONITOR.
[2020-12-27 08:00] VITALS: BP 102/56
[2020-12-27] MEDS: DOCUSATE SODIUM 100 MG CAPSULE PO SCH ×2 (08:27→16:13)
[2020-12-27] MEDS: FERROUS SULFATE (325 MG) 325 MG/TAB TABLET PO SCH (08:27)
[2020-12-27] MEDS: MULTIVITAMINS,THERAGRAN 1 UDTAB TABLET PO SCH (08:28)
[2020-12-27] MEDS: MORPHINE SULFATE IR 15 MG TABLET PO SCH ×2 (08:28→20:26)
[2020-12-27] MEDS: ENOXAPARIN SODIUM 40 MG/0.4 ML DISP.SYRIN SQ SCH (08:29)
[2020-12-27 09:34] LABS: CALCIUM, SERUM 8.4 mg/dL (8.5-10.1); POTASSIUM 5.1 mmol/L (3.5-5.1)
[2020-12-27 09:35] LABS: CREATININE 1.5 mg/dL (0.6-1.3)
[2020-12-27 09:36] LABS: BILIRUBIN,TOTAL 0.8 mg/dL (0.2-1.0)
[2020-12-27 09:37] LABS: ALBUMIN 1.3 g/dL (3.4-5.0)
[2020-12-27 10:00] LABS: TOTAL PROTEIN, SERUM 5.3 g/dL (6.4-8.2)
[2020-12-27 10:01] LABS: PHOSPHORUS 0.5 mg/dL (2.5-4.9)
[2020-12-27 12:00] VITALS: BP 105/61
[2020-12-27] MEDS ORDERED: Sodium Phosphate 30 MMOL in IV NS 0.9% 250 ML IV SCH (12:00)
--- NOTE | 2020-12-27 12:00 | NUR ---
RN NOTES ENCOURAGED PO INTAKE , CONTINUE TO MONITOR .
[2020-12-27] MEDS: MEROPENEM 1 G in IV NS 0.9% 100 ML IV SCH ×2 (12:01→20:13)
[2020-12-27 16:00] VITALS: BP 128/71
[2020-12-27] MEDS: VANCOMYCIN 1 GM in IV D5W 250ml IV SCH (17:04)
[2020-12-27] MEDS: ENSURE ENLIVE 237 ML LIQUID (VANILLA) PO SCH (17:25)
--- NOTE | 2020-12-27 18:44 | NUR ---
RN NOTES NO SIGNIFICANT CHANGES NOTED ON THIS SHIFT, NEW LEFT ARM PICC LINE INSEARTED BY PICC LINE NURSE , WILL ENDORSE TO SLAB WORKER NURSE FOR CONTINUITY OF CARE .
--- NOTE | 2020-12-27 19:48 | NUR ---
RN OPENING NOTE PATIENT IN BED. A/OX4. NO S/S OF APPARENT DISTRESS, TOLERATING 4LPM OF OXYGEN VIA NC. NO C/O PAIN. IV NS RUNNING AT THIS TIME. PATIENT NOTED TO HAVE MULTIPLE IV ACCESS ON THE R. ARM (3 LINES). PASSING FLATUS. SAFETY IN PLACE. WILL CONTINUE TO MONITOR.
[2020-12-27 20:00] VITALS: BP 129/76
[2020-12-27] MEDS: FLUCONAZOLE (100 MG) 100 MG TABLET PO SCH (20:11)
--- NOTE | 2020-12-27 20:28 | NUR ---
MS RN NOTE PATIENT ASKED FOR THE SCHEDULED 2100 PAIN MEDICATION (PO MORPHINE) AT THIS TIME. C/O 10/10 PAIN BEFORE WE CHANGE HER. PATIENT NOTED TO HAVE DIARRHEA. WILL CONTINUE TO MONITOR.
--- NOTE | 2020-12-27 22:35 | NUR ---
NON-ADMIN REASON PATIENT ALREADY GIVEN BOLUS OF 1000 ML NS ENDORSED TO ME BY AM SHIFT RN. BP 129/76 AT 1999. WILL CONTINUE TO MONITOR PATIENT. NS IS ALSO RUNNING AT THIS TIME AT 100ML/HR.
[2020-12-28] VITALS: BP 126/77
[2020-12-28] MEDS: IV LR 1000 ML 1,000 ML IV PRN (03:11)
[2020-12-28] MEDS: ACETAMINOPHEN 325 MG TABLET PO PRN (03:11)
--- NOTE | 2020-12-28 03:11 | NUR ---
POWER ORIGINATOR NOTES TYLENOL GIVEN AT THIS TIME. PER PATIENT SHE WANTS PAIN MEDICATION BEFORE CHANGE.
[2020-12-28 04:00] VITALS: BP 131/88
[2020-12-28] MEDS: MEROPENEM 1 G in IV NS 0.9% 100 ML IV SCH ×3 (04:39→20:56)
--- NOTE | 2020-12-28 06:36 | NUR ---
WELFARE ELIGIBILITY WORKER CLOSING NOTE PATIENT IN BED WITH EYES CLOSED, EASY TO AROUSE. A/OX4. NO S/S OF APPARENT DISTRESS TOLERATING 4LPM OF OXYGEN VIA NC. PAIN MANAGED WITH MEDICATIONS. NO FEVER ON MY SHIFT. BLOOD PRESSURE HAS BEEN WNL THE WHOLE SHIFT. IV LR RUNNING @100ML/HR AT THIS TIME AND MERREM 1G RUNNING @ 33.333 ML/HR. ENERGY EFFICIENCY FINANCE MANAGER READING SR. JACKSON CATHETER DRAINING CLEAR, ARAMIS YELLOW URINE WITH 1600 URINE OUTPUT. ALL NEEDS ATTENDED. ALL SCHED MEDS ADMINISTERED. WILL ENDORSE CARE TO MORNING SHIFT RN.
[2020-12-28 06:58] LABS: BASOPHILS % (AUTO) 0.4 % (0.0-2.0); EOSINOPHILS % (AUTO) 6.1 % (0.0-6.0); HEMATOCRIT 24 % (33-45); HEMOGLOBIN 7.8 g/dL (11.5-14.8); LYMPHOCYTES # (AUTO) 1.4 K/uL (0.8-4.8); LYMPHOCYTES % (AUTO) 15.3 % (20.0-44.0); MEAN CORPUSCULAR HGB CONC 33 g/dl (31.0-36.0); MEAN CORPUSCULAR VOLUME 94 fL (82-100); MONOCYTES # (AUTO) 0.5 K/uL (0.1-1.30); MONOCYTES % (AUTO) 5.5 % (2.0-12.0); NEUTROPHILS # (AUTO) 6.9 K/uL (1.8-8.9); NEUTROPHILS % (AUTO) 72.7 % (43.0-81.0); PLATELET COUNT (AUTO) 291 K/uL (150-450); RED BLOOD CELL COUNT(AUTO) 2.54 MIL/uL (4.0-5.2); WHITE BLOOD COUNT (AUTO) 9.4 K/uL (4.3-11.0)
--- NOTE | 2020-12-28 07:20 | NUR ---
RN NOTE RECEIVED PATIENT IN BED, ALERT AND ORIENTED X4, WITH 02 @2LPM OS SAT OF 97%, BREATHING EVEN AND UNLABORED,ON TELE MONITOR SR OF 90, NO PAIN COMPLAINS, NEEDS MET AND ANTICIPATED, WOUND TREATMENT ONGOING, RIGHT ARM PICC LINE, WITH 1/2 NS 100CC/HR PATENT INFUSING WELL, JACKSON CATHETER DRAINING WELL VIA GRAVITY NO HEMATURIA NOTED, WILL CONTINUE TO MONITOR, SAFETY MEASURES OBSERVED, BED WHEELS LOCK, CALL LIGHT WITHIN REACH.
[2020-12-28 08:00] VITALS: BP 131/88
--- NOTE | 2020-12-28 08:00 | NUR ---
RN NOTE SEEN BY DR. DIAZ, CHANGE IV HYDRATION FROM LR 100CC/HR TO 1/2 NS 100CC/HR, ORDERS NOTED AND CARRIED OUT
[2020-12-28] MEDS: FLUCONAZOLE (100 MG) 100 MG TABLET PO SCH (08:15)
[2020-12-28] MEDS: MULTIVITAMINS,THERAGRAN 1 UDTAB TABLET PO SCH (08:15)
[2020-12-28] MEDS: ENOXAPARIN SODIUM 40 MG/0.4 ML DISP.SYRIN SQ SCH (08:15)
[2020-12-28] MEDS: DOCUSATE SODIUM 100 MG CAPSULE PO SCH ×2 (08:15→17:36)
[2020-12-28] MEDS: MORPHINE SULFATE IR 15 MG TABLET PO SCH ×2 (08:16→21:04)
[2020-12-28] MEDS: FERROUS SULFATE (325 MG) 325 MG/TAB TABLET PO SCH (08:16)
[2020-12-28] MEDS: ENSURE ENLIVE 237 ML LIQUID (VANILLA) PO SCH ×3 (08:17→17:34)
[2020-12-28] MEDS: IV 1/2NS 1000 ML 1,000 ML IV PRN ×2 (08:25→18:42)
[2020-12-28 09:32] LABS: CALCIUM, SERUM 7.7 mg/dL (8.5-10.1); CREATININE 1.1 mg/dL (0.6-1.3); PHOSPHORUS 1.5 mg/dL (2.5-4.9); POTASSIUM 3.8 mmol/L (3.5-5.1)
--- NOTE | 2020-12-28 11:20 | NUR ---
RN NOTE PATIENT SEEN BY BEEF SPLITTER Audrey ROSAS UPDATED BEEF SPLITTER REGARDIGN CURRENT CONDITION. ALBUMIN OF 1.3, WILL CONTINUE TO MONITOR.
[2020-12-28 12:00] VITALS: BP 139/89
[2020-12-28] MEDS: VANCOMYCIN 1 GM in IV D5W 250ml IV SCH ×2 (12:00→17:35)
--- NOTE | 2020-12-28 12:31 | NUR ---
RN NOTE NOTIFIED DAMAGE ADJUSTER Audrey ROSAS LABORATORY CALLED BLOOD CULTURE PRELIMINARY POSITIVE FOR YEAST GROWTH. NOTIFIED.
--- NOTE | 2020-12-28 12:51 | NUR ---
RN NOTE HOLD VANCOMYCIN, VANCOMYCIN TROUGH OF 21, PHARMACIST MADE AWARE PER ODER.
[2020-12-28] MEDS: MICAFUNGIN SODIUM 100 MG in IV NS 0.9% 100 ML IV SCH (14:41)
[2020-12-28] MEDS ORDERED: K PHOS NEUTRAL 250 MG TABLET PO ONE (15:30)
[2020-12-28 16:00] VITALS: BP 129/89
--- NOTE | 2020-12-28 18:00 | NUR ---
RN NOTE MICAFUNGIN IV DOSE GIVEN
--- NOTE | 2020-12-28 19:02 | NUR ---
RN NOTE RECEIVED PATIENT IN BED, ALERT AND ORIENTED X4, WITH 02 @2LPM OS SAT OF 97%, BREATHING EVEN AND UNLABORED, WOUND TREATMENT DONE ORDERED. NO PAIN COMPLAINS, NEEDS MET AND ANTICIPATED, WOUND TREATMENT ONGOING, RIGHT ARM PICC LINE, WITH 1/2 NS 100CC/HR PATENT INFUSING WELL, JACKSON CATHETER DRAINING WELL VIA GRAVITY NO HEMATURIA NOTED, WILL CONTINUE TO MONITOR, SAFETY MEASURES OBSERVED, BED WHEELS LOCK, CALL LIGHT WITHIN REACH. WILL ENDORSE TO NOC SHIFT
--- NOTE | 2020-12-28 19:11 | NUR ---
CONTINUITY OF CARE Patient in bed, awake. On supplemental Oxygen 2L via NC, denies sob. Ongoing IVF. Mancuso cath to gravity drainage. Abdomen wound dressing in place. Turned and repositioned. Skin/Fall precaution maintained.
[2020-12-28 20:00] VITALS: BP 180/97
--- NOTE | 2020-12-28 20:43 | NUR ---
ELEVATED BP SBP 180/97 patient denies headache, no c/o N/V. Notified MD with order place.
[2020-12-28] MEDS ORDERED: hydrALAZINE HCL 50 MG TABLET PO PRN (21:00)
--- NOTE | 2020-12-28 21:10 | NUR ---
ELEVATED SBP SBP 180 given Hydralazine, will reassess.
[2020-12-29 04:00] VITALS: BP 144/87
[2020-12-29] MEDS: MEROPENEM 1 G in IV NS 0.9% 100 ML IV SCH ×3 (04:33→21:10)
--- NOTE | 2020-12-29 06:26 | NUR ---
END OF SHIFT REPORT Patient is A/O x3, Eritrean speaking only. Ongoing IVF. On Abx Merrem, Vancomycin, and Mycamine. Afebrile. Elevated SBP improved with Hydralazine. Abdominal wound dressing done, On pain management MS IR, pain is controlled. Turned and repositioned. Wound consult pending. Will endorse to oncoming RN.
[2020-12-29] MEDS: IV 1/2NS 1000 ML 1,000 ML IV PRN (06:57)
[2020-12-29] MEDS: DOCUSATE SODIUM 100 MG CAPSULE PO SCH ×2 (08:37→16:08)
[2020-12-29] MEDS: MORPHINE SULFATE IR 15 MG TABLET PO SCH ×2 (08:37→21:10)
[2020-12-29] MEDS: MULTIVITAMINS,THERAGRAN 1 UDTAB TABLET PO SCH (08:37)
[2020-12-29] MEDS: ENOXAPARIN SODIUM 40 MG/0.4 ML DISP.SYRIN SQ SCH (08:37)
[2020-12-29] MEDS: FERROUS SULFATE (325 MG) 325 MG/TAB TABLET PO SCH (08:38)
[2020-12-29] MEDS: ENSURE ENLIVE 237 ML LIQUID (VANILLA) PO SCH ×3 (08:38→16:08)
[2020-12-29 09:59] LABS: BASOPHILS % (AUTO) 0.4 % (0.0-2.0); EOSINOPHILS % (AUTO) 3.9 % (0.0-6.0); HEMATOCRIT 26 % (33-45); HEMOGLOBIN 8.4 g/dL (11.5-14.8); LYMPHOCYTES # (AUTO) 2.1 K/uL (0.8-4.8); LYMPHOCYTES % (AUTO) 22.9 % (20.0-44.0); MEAN CORPUSCULAR HGB CONC 33 g/dl (31.0-36.0); MEAN CORPUSCULAR VOLUME 94 fL (82-100); MONOCYTES # (AUTO) 0.5 K/uL (0.1-1.30); MONOCYTES % (AUTO) 4.9 % (2.0-12.0); NEUTROPHILS # (AUTO) 6.3 K/uL (1.8-8.9); NEUTROPHILS % (AUTO) 67.9 % (43.0-81.0); PLATELET COUNT (AUTO) 335 K/uL (150-450); RED BLOOD CELL COUNT(AUTO) 2.74 MIL/uL (4.0-5.2); WHITE BLOOD COUNT (AUTO) 9.3 K/uL (4.3-11.0)
[2020-12-29 10:01] LABS: CALCIUM, SERUM 7.6 mg/dL (8.5-10.1); CREATININE 0.9 mg/dL (0.6-1.3); MAGNESIUM 2.1 mg/dL (1.8-2.4); PHOSPHORUS 1.2 mg/dL (2.5-4.9); POTASSIUM 3.7 mmol/L (3.5-5.1)
[2020-12-29] MEDS ORDERED: IV NS 0.9% 250 ML IV ONE (10:46)
[2020-12-29] MEDS ORDERED: CT SWABBABLE VALVE TRANS SET 1 EA INFUS.SET MC ONE (10:46)
[2020-12-29] MEDS ORDERED: IOHEXOL-300 100 ML VIAL IV ONE (10:46)
[2020-12-29] MEDS ORDERED: Sodium Phosphate 30 MMOL in IV NS 0.9% 250 ML IV SCH (11:00)
[2020-12-29] MEDS: MICAFUNGIN SODIUM 100 MG in IV NS 0.9% 100 ML IV SCH (13:48)
[2020-12-29] MEDS: VANCOMYCIN 1 GM in IV D5W 250ml IV SCH (17:05)
--- NOTE | 2020-12-29 17:05 | NUR ---
VANCO TROUGH 21 - HELD DOSE OF VANCO. PHARMACY AWARE. NEW TROUGH TO DRAW TOMORROW.
--- NOTE | 2020-12-29 18:36 | NUR ---
MS RN CLOSING NOTE PATIENT CURRENTLY LYING IN BED, AWAKE AND WATCHING TV. A/O X3. MACEDONIAN SPEAKING ONLY. ON 2L O2 VIA NASAL CANNULA, TOLERATING WELL. NO SOB NOTED. NO DISTRESS/DISCOMFORT NOTED. NO PAIN NOTED AT THIS TIME. IV ACCESS TO RIGHT UPPER ARM - PICC LINE - RUNNING 1/2NS @ 100ML/HR. PATIENT RETURNED FROM CT WITH CONTRAST SO NO METFORMIN FOR 48 HOURS FROM TODAY. JACKSON CATHETER NOTED - INTACT AND PATENT. SAFETY MEASURES IN PLACE. CALL LIGHT WITHIN REACH. WILL ENDORSE TO TOBACCO WRAPPING MACHINE TENDER NURSE FOR MERCED.
--- NOTE | 2020-12-29 19:35 | NUR ---
RN NOTE PT RECEIVED IN BED. CURRENTLY ON 2L OF O2 VIA NC SHOWING NO SIGNS OF RESP DISTRESS. PT IS A&OX3, LAO SPEAKING. WOUNDS NOTED ON ABDOMEN, BACK AND SACRUM. JACKSON CATH NOTED. PT HAS RIGHT UPPER ARM PICC INFUSING 1/2 NS AT 100 ML/HR. IV LINE FLUSHED, PATENT, AND INTACT WITH NO INFILTRATION. ALL SAFETY MEASURES IMPLEMENTED. BED LOCKED AND IN LOWEST POSITION. BED ALARM ON. CALL LIGHT WITHIN REACH. WILL CONTINUE TO MONITOR THROUGHOUT THE SHIFT.
[2020-12-29 20:00] VITALS: BP 125/88
[2020-12-30 04:00] VITALS: BP 132/85
[2020-12-30] MEDS: IV 1/2NS 1000 ML 1,000 ML IV PRN (05:03)
[2020-12-30] MEDS: MEROPENEM 1 G in IV NS 0.9% 100 ML IV SCH ×2 (05:03→13:20)
[2020-12-30 06:12] LABS: BASOPHILS % (AUTO) 0.4 % (0.0-2.0); EOSINOPHILS % (AUTO) 3.6 % (0.0-6.0); HEMATOCRIT 25 % (33-45); HEMOGLOBIN 8.3 g/dL (11.5-14.8); LYMPHOCYTES # (AUTO) 1.7 K/uL (0.8-4.8); LYMPHOCYTES % (AUTO) 19.7 % (20.0-44.0); MEAN CORPUSCULAR HGB CONC 33 g/dl (31.0-36.0); MEAN CORPUSCULAR VOLUME 93 fL (82-100); MONOCYTES # (AUTO) 0.6 K/uL (0.1-1.30); MONOCYTES % (AUTO) 6.4 % (2.0-12.0); NEUTROPHILS # (AUTO) 6.2 K/uL (1.8-8.9); NEUTROPHILS % (AUTO) 69.9 % (43.0-81.0); PLATELET COUNT (AUTO) 354 K/uL (150-450); RED BLOOD CELL COUNT(AUTO) 2.67 MIL/uL (4.0-5.2); WHITE BLOOD COUNT (AUTO) 8.9 K/uL (4.3-11.0)
[2020-12-30 06:25] LABS: CALCIUM, SERUM 7.2 mg/dL (8.5-10.1); CREATININE 0.8 mg/dL (0.6-1.3); MAGNESIUM 1.8 mg/dL (1.8-2.4); PHOSPHORUS 2.4 mg/dL (2.5-4.9); POTASSIUM 3.5 mmol/L (3.5-5.1)
--- NOTE | 2020-12-30 06:59 | NUR ---
NO CHANGES IN PT CONDITION DURING SHIFT. ALL DUE MEDS GIVEN ORDERED. PT KEPT CLEAN AN COMFORTABLE. ALL SAFETY MEASURES IMPLEMENTED. CALL LIGHT WITHIN REACH. BED ALARM ON. BED LOCKED AND IN LOWEST POSITION. WILL ENDORSE TO MORNING SHIFT RN FOR MERCED. Addendum: 12/30/20 at 0701 by MARIANNA OSEGUERA RN RN NOTE NO CHANGES IN PT CONDITION DURING SHIFT. PT IS ON 2L OF O2 VIA NC SHOWING NO S/S OF RESP DISTRESS. A&OX3. RIGHT UPPER ARM PICC FLUSHED PATENT, AND INTACT WITH NO INFILTRATION. ALL DUE MEDS GIVEN ORDERED. PT KEPT CLEAN AN COMFORTABLE. ALL SAFETY MEASURES IMPLEMENTED. CALL LIGHT WITHIN REACH. BED ALARM ON. BED LOCKED AND IN LOWEST POSITION. WILL ENDORSE TO MORNING SHIFT RN FOR MERCED.
--- NOTE | 2020-12-30 07:58 | NUR ---
MS RN OPENING NOTE PATIENT IS IN BED RESTING, PATIENT IS IN NO ACUTE DISTRESS. PATIENT IS ON 2L OXYGEN ON NC TOLERATING WELL. SAFETY PRECAUTIONS ARE ON, BED IS LOCKED IN THE LOWEST POSITION WITH SIDE RAILS UP, CALL LIGHT WITHIN REACH, WILL CONTINUE TO MONITOR CLOSELY.
[2020-12-30] MEDS: ENSURE ENLIVE 237 ML LIQUID (VANILLA) PO SCH ×3 (09:30→17:04)
[2020-12-30] MEDS: MULTIVITAMINS,THERAGRAN 1 UDTAB TABLET PO SCH (09:30)
[2020-12-30] MEDS: FERROUS SULFATE (325 MG) 325 MG/TAB TABLET PO SCH (09:30)
[2020-12-30] MEDS: DOCUSATE SODIUM 100 MG CAPSULE PO SCH ×2 (09:30→17:04)
[2020-12-30] MEDS: ENOXAPARIN SODIUM 40 MG/0.4 ML DISP.SYRIN SQ SCH (09:32)
[2020-12-30] MEDS: MORPHINE SULFATE IR 15 MG TABLET PO SCH ×2 (09:34→20:36)
[2020-12-30] MEDS: ONDANSETRON HCL/PF 4 MG/2 ML VIAL IVP PRN (09:37)
[2020-12-30] MEDS ORDERED: Sodium Phosphate 30 MMOL in IV NS 0.9% 250 ML IV ONE (10:00)
[2020-12-30] MEDS ORDERED: IV D5W 1,000 ML IV PRN (10:00)
--- NOTE | 2020-12-30 10:16 | NUR ---
WOUND CARE CONSULT: PT PRESENTS WITH MULTIPLE WOUNDS PRESENT ON ADMISSION. SURGICAL CONSULT CALLED TO DR BENJI GLORIA. RECOMMENDATIONS MADE FOR SKIN PROTECTION AND WOUND CARE. DISCUSSED WITH NURSING STAFF. PT IS ON FIRST STEP PETE BARBER MD IN AGREEMENT WITH PLAN OF CARE.
[2020-12-30 12:00] VITALS: BP 122/99
[2020-12-30] MEDS: MICAFUNGIN SODIUM 100 MG in IV NS 0.9% 100 ML IV SCH (15:51)
--- NOTE | 2020-12-30 18:50 | NUR ---
MS RN CLOSING NOTE PATIENT IS IN BED RESTING, PATIENT IS IN NO ACUTE DISTRESS. PATIENT IS ON 2L OXYGEN ON NC TOLERATING WELL. SAFETY PRECAUTIONS ARE ON, BED IS LOCKED IN THE LOWEST POSITION WITH SIDE RAILS UP, CALL LIGHT WITHIN REACH, ENDORSE PATIENT TO LEATHER PRODUCTION ARTISAN NURSE FOR MERCED.
[2020-12-30 20:00] VITALS: BP 127/91
--- NOTE | 2020-12-30 20:00 | NUR ---
MS RN OPENING NOTE RECEIVED PT AWAKE IN BED. A/O X3, MACEDONIAN-SPEAKING. PT ON 2 LPM O2 VIA NC SATURATING AT 97%. NO SOB OR S/S OF RESPIRATORY DISTRESS NOTED. PT HAS NO C/O PAIN OR DISCOMFORT AT THIS TIME. IV ACCESS IN KEVEN PICC, INTACT AND PATENT. JACKSON CATH IN PLACE DRAINING CLEAR YELLOW URINE. SAFETY PRECAUTIONS MAINTAINED. BED IN LOWEST LOCKED POSITION, HOB ELEVATED, SIDE RAILS UP X2. CALL LIGHT AND TABLE WITHIN REACH. WILL CONTINUE WITH PLAN OF CARE.
[2020-12-31 04:00] VITALS: BP 129/87
--- NOTE | 2020-12-31 06:32 | NUR ---
MS RN CLOSING NOTE PT IS AWAKE IN BED. A/O X3, GUINEAN-SPEAKING. PT ON 2 LPM O2 VIA NC SATURATING AT 98%. NO SOB OR S/S OF RESPIRATORY DISTRESS NOTED. PT HAS NO C/O PAIN OR DISCOMFORT AT THIS TIME. IV ACCESS IN KEVEN PICC, INTACT AND PATENT. JACKSON CATH IN PLACE DRAINING CLEAR YELLOW URINE. ALL NEEDS HAVE BEEN MET. PAIN MANAGEMENT ADMINISTERED PER ORDER. PT REPOSITIONED Q2H AND PRN. SAFETY PRECAUTIONS MAINTAINED AT ALL TIMES. BED IN LOWEST LOCKED POSITION, HOB ELEVATED, SIDE RAILS UP X2. CALL LIGHT AND TABLE WITHIN REACH. WILL ENDORSE TO ONCOMING NURSE FOR MERCED.
[2020-12-31 07:02] LABS: BASOPHILS # (AUTO) 0.1 K/uL (0.0-0.2); BASOPHILS % (AUTO) 0.5 % (0.0-2.0); EOSINOPHILS % (AUTO) 3.2 % (0.0-6.0); HEMATOCRIT 26 % (33-45); HEMOGLOBIN 8.7 g/dL (11.5-14.8); LYMPHOCYTES # (AUTO) 2.5 K/uL (0.8-4.8); LYMPHOCYTES % (AUTO) 22.7 % (20.0-44.0); MEAN CORPUSCULAR HGB CONC 33 g/dl (31.0-36.0); MEAN CORPUSCULAR VOLUME 94 fL (82-100); MONOCYTES # (AUTO) 0.5 K/uL (0.1-1.30); MONOCYTES % (AUTO) 4.8 % (2.0-12.0); NEUTROPHILS # (AUTO) 7.5 K/uL (1.8-8.9); NEUTROPHILS % (AUTO) 68.8 % (43.0-81.0); PLATELET COUNT (AUTO) 419 K/uL (150-450)
--- NOTE | 2020-12-31 07:57 | NUR ---
MS/RN OPENING NOTES RECEIVED PATIENT ON BED AWAKE ALERT AND ORIENTED X3. PATIENT IS ON 2L OXYGEN SATURATION 99%. PATIENT IN NO APPARENT RESPIRATORY DISTRESS NOTED. NO COMPLAINED OF PAIN AT THIS TIME. WILL CONTINUE TO MONITOR.
[2020-12-31 08:10] LABS: CALCIUM, SERUM 7.1 mg/dL (8.5-10.1); CREATININE 0.7 mg/dL (0.6-1.3); MAGNESIUM 1.9 mg/dL (1.8-2.4); PHOSPHORUS 2.8 mg/dL (2.5-4.9)
[2020-12-31] MEDS: ONDANSETRON HCL/PF 4 MG/2 ML VIAL IVP PRN (08:31)
[2020-12-31] MEDS: FERROUS SULFATE (325 MG) 325 MG/TAB TABLET PO SCH (08:33)
[2020-12-31] MEDS: MULTIVITAMINS,THERAGRAN 1 UDTAB TABLET PO SCH (08:33)
[2020-12-31] MEDS: DOCUSATE SODIUM 100 MG CAPSULE PO SCH ×2 (08:33→16:39)
[2020-12-31] MEDS: ENSURE ENLIVE 237 ML LIQUID (VANILLA) PO SCH ×3 (08:36→16:39)
[2020-12-31] MEDS: MORPHINE SULFATE IR 15 MG TABLET PO SCH ×2 (08:36→21:09)
[2020-12-31] MEDS: ENOXAPARIN SODIUM 40 MG/0.4 ML DISP.SYRIN SQ SCH (08:42)
[2020-12-31] MEDS: MICAFUNGIN SODIUM 100 MG in IV NS 0.9% 100 ML IV SCH (13:14)
[2020-12-31 14:23] LABS: BAND % (MANUAL) 3 % (0.0-5.0); EOSINOPHILS % (MANUAL) 3 % (0-4); LYMPHOCYTES % (MANUAL) 18 % (16-48); MONOCYTES % (MANUAL) 5 % (0-11.0); MYELOCYTES % 2 % (0-0); NEUTROPHILS % (MANUAL) 67 (42-76); PROMYELOCYTES % 2 % (0-0)
[2020-12-31] MEDS: MORPHINE SULFATE INJ 2 MG/ML DISP.SYRIN IV PRN (15:12)
--- NOTE | 2020-12-31 18:54 | NUR ---
MS/RN CLOSING NOTES PATIENT IS ON BED. ALERT AND ORIENTED X3. PATIENT IS ON 3L OXYGEN SATURATING WELL. PATIENT IN NO APPARENT RESPIRATORY DISTRESS NOTED. NO COMPLAINED OF PAIN NOTED AT THIS TIME. IVAN AND EXAMINED BY MD WITH ORDERS MADE AND CARRIED OUT. ALL DUE MEDICATIONS WAS GIVEN. IV ACCESS AT RIGHT UPPER ARM PICC LINE WITH IV FLUID OF D5W 1L AT 50ML/HOUR ON AND INFUSING WELL. DRESSING WAS DONE. SAFETY PRECAUTIONS WAS IN PLACED. BED IN LOWEST POSITION AND LOCKED. SIDERAILS UP X2 AND LOCKED. CALL LIGHT WITHIN REACH. WILL ENDORSED TO EAR NOSE AND THROAT SPECIALIST FOR MERCED.
--- NOTE | 2020-12-31 19:30 | NUR ---
RN NOTE PT RECEIVED IN BED. PT IS CURRENTLY ON 2L OF O2 VIA NC. SHOWING NO S/S OF RESP DISTRESS. PT IS A&OX3. TURKISH SPEAKING. JACKSON CATH NOTED. WOUNDS NOTED. PT HAS RIGHT UPPER ARM PICC LINE, FLUSHED, PATENT, AND INTACT WITH NO SIGNS OF INFILTRATION. ALL SAFETY MEASURES IMPLEMENTED. CALL LIGHT WITHIN REACH. BED ALARM ON. BED LOCKED AND IN LOWEST POSITION. WILL CONTINUE TO MONITOR THROUGHOUT THE SHIFT.
--- NOTE | 2020-12-31 20:05 | NUR ---
RN NOTE REPORT GIVEN TO JULIO QUINTANA.
[2020-12-31 20:48] VITALS: BP 121/82
--- NOTE | 2020-12-31 20:50 | NUR ---
MS RN NOTE PT TRANSFERRED TO [facility]. PT IS AWAKE IN BED AND IN STABLE CONDITION. A/O X3, POLISH-SPEAKING. PT ON 2 LPM O2 VIA NC SATURATING AT 98%. NO SOB OR S/S OF RESPIRATORY DISTRESS NOTED. PT HAS NO C/O PAIN OR DISCOMFORT AT THIS TIME. IV ACCESS IN KEVEN PICC, INTACT AND PATENT. JACKSON CATH IN PLACE DRAINING CLEAR YELLOW URINE. SAFETY PRECAUTIONS MAINTAINED. BED IN LOWEST LOCKED POSITION, HOB ELEVATED, SIDE RAILS UP X2. CALL LIGHT AND TABLE WITHIN REACH. WILL CONTINUE WITH PLAN OF CARE.
--- NOTE | 2020-12-31 20:50 | NUR ---
RN NOTE PT TRANSFERRED TO 3W FOR MERCED.
--- NOTE | 2021-01-01 06:26 | NUR ---
MS RN CLOSING NOTE PT IS AWAKE IN BED. A/O X3, SLOVENIAN-SPEAKING. PT ON 2 LPM O2 VIA NC SATURATING AT 97%. NO SOB OR S/S OF RESPIRATORY DISTRESS NOTED. PT HAS NO C/O PAIN OR DISCOMFORT AT THIS TIME. IV ACCESS IS INTACT, PATENT, AND FLUSHING WELL. JACKSON CATH IN PLACE DRAINING CLEAR YELLOW URINE. ALL NEEDS HAVE BEEN MET. PAIN MANAGEMENT ADMINISTERED PER ORDER. PT REPOSITIONED Q2H AND PRN. SAFETY PRECAUTIONS MAINTAINED AT ALL TIMES. BED IN LOWEST LOCKED POSITION, HOB ELEVATED, SIDE RAILS UP X2. CALL LIGHT AND TABLE WITHIN REACH. WILL ENDORSE TO ONCOMING NURSE FOR MERCED.
[2021-01-01 06:32] LABS: CALCIUM, SERUM 7.1 mg/dL (8.5-10.1); CREATININE 0.6 mg/dL (0.6-1.3); MAGNESIUM 1.6 mg/dL (1.8-2.4); POTASSIUM 3.8 mmol/L (3.5-5.1)
[2021-01-01 07:48] LABS: BASOPHILS # (AUTO) 0.1 K/uL (0.0-0.2); BASOPHILS % (AUTO) 0.6 % (0.0-2.0); EOSINOPHILS % (AUTO) 3.1 % (0.0-6.0); HEMATOCRIT 25 % (33-45); HEMOGLOBIN 7.8 g/dL (11.5-14.8); LYMPHOCYTES % (AUTO) 27.2 % (20.0-44.0); MEAN CORPUSCULAR HGB CONC 32 g/dl (31.0-36.0); MEAN CORPUSCULAR VOLUME 96 fL (82-100); MONOCYTES # (AUTO) 0.6 K/uL (0.1-1.30); MONOCYTES % (AUTO) 5.4 % (2.0-12.0); NEUTROPHILS # (AUTO) 7.1 K/uL (1.8-8.9); NEUTROPHILS % (AUTO) 63.7 % (43.0-81.0); PLATELET COUNT (AUTO) 386 K/uL (150-450); RED BLOOD CELL COUNT(AUTO) 2.55 MIL/uL (4.0-5.2); WHITE BLOOD COUNT (AUTO) 11.1 K/uL (4.3-11.0)
[2021-01-01 08:00] VITALS: BP 143/94
[2021-01-01 08:31] LABS: PHOSPHORUS 28.7 mg/dL (2.5-4.9)
[2021-01-01 09:58] LABS: BAND % (MANUAL) 1 % (0.0-5.0); EOSINOPHILS % (MANUAL) 1 % (0-4); LYMPHOCYTES % (MANUAL) 28 % (16-48); MONOCYTES % (MANUAL) 5 % (0-11.0); NEUTROPHILS % (MANUAL) 65 (42-76)
[2021-01-01] MEDS: ENSURE ENLIVE 237 ML LIQUID (VANILLA) PO SCH ×3 (10:09→18:06)
[2021-01-01] MEDS: FERROUS SULFATE (325 MG) 325 MG/TAB TABLET PO SCH (10:12)
[2021-01-01] MEDS: MORPHINE SULFATE IR 15 MG TABLET PO SCH (10:12)
[2021-01-01] MEDS: MULTIVITAMINS,THERAGRAN 1 UDTAB TABLET PO SCH (10:13)
[2021-01-01] MEDS: DOCUSATE SODIUM 100 MG CAPSULE PO SCH ×2 (10:14→18:13)
[2021-01-01] MEDS: ENOXAPARIN SODIUM 40 MG/0.4 ML DISP.SYRIN SQ SCH (10:15)
[2021-01-01] MEDS: ONDANSETRON HCL/PF 4 MG/2 ML VIAL IVP PRN ×2 (10:40→18:32)
[2021-01-01] MEDS: Magnesium 1GM/D5W 100ML PREMIX 100 ML IV SCH ×2 (11:15→12:38)
[2021-01-01 11:45] LABS: CALCIUM, SERUM 7.4 mg/dL (8.5-10.1); CREATININE 0.8 mg/dL (0.6-1.3); POTASSIUM 4.3 mmol/L (3.5-5.1)
[2021-01-01] MEDS ORDERED: K PHOS NEUTRAL 250 MG TABLET PO ONE (13:00)
[2021-01-01] MEDS ORDERED: LACT-246 PO (13:42)
[2021-01-01] MEDS ORDERED: VORI200T PO (13:42)
[2021-01-01] MEDS: MICAFUNGIN SODIUM 100 MG in IV NS 0.9% 100 ML IV SCH (14:16)
[2021-01-01] MEDS: MORPHINE SULFATE INJ 2 MG/ML DISP.SYRIN IV PRN (14:44)
[2021-01-01] MEDS ORDERED: DAKINS QUARTER STRENGTH (0.125%) 480 ML BOTTLE TOP SCH (15:30)
[2021-01-01 16:00] VITALS: BP 129/81
--- NOTE | 2021-01-01 16:55 | NUR ---
harry cath removed,dressings done.
--- NOTE | 2021-01-01 18:00 | NUR ---
med x 1 with iv injection,x2 with zofran and x1 with tylenol.small emesis midday.
[2021-01-01] MEDS: ACETAMINOPHEN 325 MG TABLET PO PRN (18:13)
--- NOTE | 2021-01-01 18:56 | NUR ---
refused discharge photos.
--- NOTE | 2021-01-01 21:00 | NUR ---
DISCHARGED Patient has been cleared for dc by MD. Ambulance/transport arrived to [facility] patient. Called [facility] spoke with JULIO Richmond, report given over the phone. Patient has no personal belongings. PICC line KEVEN removed, catheter intact, no bleeding on catheter site. Patient remains stable upon dc. Discharge instruction packet send with the patient. Patient left hosp via ambulance at 2104.
--- NOTE | 2021-01-01 21:04 | NUR ---
CONTINUITY OF CARE Patient is A/O x3. On supplemental oxygen via NC, denies sob. Patient to be dc today per report, awaiting transport. Patient no c/o pain. Turned and repositioned, offload extremities.
== END 2021-01-01 21:00 | DRG 720 ==
LOC: ER 22:36 → TELE1 12-27 04:15 → MEDSG1 12-28 10:46 → MED 12-31 20:34
PROVIDERS: ADMIT Registered Nurse; ATTEND Nurse Practitioner Acute Care
PROC: 02HV33Z Insertion of Infusion Device into Superior Vena Cava, Percutaneous Approach (ICD-10-PCS; principal; 2020-12-27)
PROC: B548ZZA Ultrasonography of Superior Vena Cava, Guidance (ICD-10-PCS; 2020-12-27)
PROC: 30233N1 Transfusion of Nonautologous Red Blood Cells into Peripheral Vein, Percutaneous Approach (ICD-10-PCS; 2020-12-27)
DX: A41.9 Sepsis, unspecified organism (principal); J96.01 Acute respiratory failure with hypoxia; E43 Unspecified severe protein-calorie malnutrition; L89.104 Pressure ulcer of unspecified part of back, stage 4; J15.9 Unspecified bacterial pneumonia; E87.2 Acidosis; L89.159 Pressure ulcer of sacral region, unspecified stage; D68.59 Other primary thrombophilia; E66.01 Morbid (severe) obesity due to excess calories; N17.9 Acute kidney failure, unspecified; E83.39 Other disorders of phosphorus metabolism; Z20.822 Contact with and (suspected) exposure to COVID-19; E11.9 Type 2 diabetes mellitus without complications; Z68.34 Body mass index [BMI] 34.0-34.9, adult; Z86.16 Personal history of COVID-19; Z86.718 Personal history of other venous thrombosis and embolism; Z87.01 Personal history of pneumonia (recurrent); Z87.39 Personal history of other diseases of the musculoskeletal system and connective tissue; Z90.49 Acquired absence of other specified parts of digestive tract; R65.20 Severe sepsis without septic shock; Z79.4 Long term (current) use of insulin; Z79.899 Other long term (current) drug therapy; B96.89 Other specified bacterial agents as the cause of diseases classified elsewhere; D64.9 Anemia, unspecified; G89.29 Other chronic pain; I10 Essential (primary) hypertension; R74.01 Elevation of levels of liver transaminase levels; Z74.09 Other reduced mobility; K76.9 Liver disease, unspecified; N26.1 Atrophy of kidney (terminal); N28.81 Hypertrophy of kidney; R18.8 Other ascites; Y95 Nosocomial condition; E87.5 Hyperkalemia; F17.200 Nicotine dependence, unspecified, uncomplicated; S50.912A Unspecified superficial injury of left forearm, initial encounter; X58.XXXA Exposure to other specified factors, initial encounter; Y92.009 Unspecified place in unspecified non-institutional (private) residence as the place of occurrence of the external cause; S31.109A Unspecified open wound of abdominal wall, unspecified quadrant without penetration into peritoneal cavity, initial encounter; Y92.9 Unspecified place or not applicable; B37.49 Other urogenital candidiasis; S40.021A Contusion of right upper arm, initial encounter
CPT/HCPCS: 36415; 71045-TC; 80048-TC; 80053-TC; 80061-TC; 80076-TC; 80202-TC; 81001; 83605-TC; 83735-TC; 83880; 84100-TC; 84484-TC; 84703-TC; 85025-TC; 85730-TC; 86850-TC; 87040-TC; 87081-TC; 87086-TC; A6253; A6403; A9563; C9803; G0378; J1650; J1885; J2185; J2248; J2270; J2405; J2543; J3370; J3475; J3490; J7030; J7050; J7060; J7070; J7120; P9016; Q9967; U0003